=== PATIENT | female | born 1935 | race American Indian/Alaskan Native ===

== ENCOUNTER 2017-01-31 09:08 | Outpatient (CLI) | payer MEDICARE ==
[2017-01-31] MEDS ORDERED: LEXISCAN IV ONE (10:25)
[2017-01-31 12:15] VITALS: BP 140/60
--- NOTE | 2017-02-01 03:58 | Treadmill Report ---
THALLIUM STRESS TEST REPORT LEFT VENTRICLE: Left ventricular chamber size is within normal spread. Perfusion study demonstrates a small fixed apical defect with no reversibility in the resting study. Gated analysis suggests [id number] left ventricular systolic dysfunction, ejection fraction 34%. CONCLUSION: Small fixed apical defect consistent with normal apical thinning. There is no reversible ischemia demonstrated on this study. Recommend clinical correlation and echocardiographic reassessment of left ventricular size and systolic function. [facility]# [id number] [place]/NTS
== END 2017-01-31 09:09 | disposition home or self-care (01) ==
LOC: CARD 09:08
PROVIDERS: ATTEND Internal Medicine Cardiovascular Disease
DX: I11.0 Hypertensive heart disease with heart failure (principal); I50.33 Acute on chronic diastolic (congestive) heart failure; E11.65 Type 2 diabetes mellitus with hyperglycemia; E78.5 Hyperlipidemia, unspecified; Z87.891 Personal history of nicotine dependence
CPT/HCPCS: 78452; 93017; A9502; J2785

== ENCOUNTER 2018-01-03 13:12 | Emergency (ER) | payer MEDICARE ==
[2018-01-03 13:58] LABS: Basophils # (Auto) 0.1 K/mm3 (0.0-0.1); Basophils % (Auto) 1.2 % (0.0-1.8); Eosinophils # (Auto) 0.2 K/mm3 (0.0-0.4); Eosinophils % (Auto) 3.5 % (0.0-4.3); Hematocrit 33.3 % (30.3-42.9); Hemoglobin 11.1 gm/dl (10.1-14.3); Lymphocytes # (Auto) 1.2 K/mm3 (1.2-5.4); Lymphocytes % (Auto) 26.8 % (13.4-35.0); Mean Corpuscular HGB Conc 33 % (30-34); Mean Corpuscular Hemoglobin 32 pg (28-32); Mean Corpuscular Volume 97 fl (79-97); Monocytes # (Auto) 0.4 K/mm3 (0.0-0.8); Monocytes % (Auto) 8.1 % (0.0-7.3); Platelet Count 206 K/mm3 (140-440); Red Blood Count 3.44 M/mm3 (3.65-5.03); Red Cell Distribution Width 15.4 % (13.2-15.2)
--- NOTE | 2018-01-03 14:08 | Emergency Department Report ---
HPI - General Chief Complaint: Hyperglycemia Time Seen by Provider: 01/03/18 13:51 - HPI HPI: The patient is a 82-year-old female with a history of diabetes and congestive heart failure, who presents for evaluation of dyspnea. The patient and her daughter reported that this morning the patient developed constant mild dyspnea and decrease in oxygen saturation on home pulse oximetry. Her dyspnea was exacerbated with physical activity. The patient states that her dyspnea resolved prior to my evaluation. She states that she has no dyspnea whatsoever now feels at her normal baseline, completely asymptomatic. The patient also denies fever, trauma to the head, headache, neck pain or stiffness, chest pain, back pain, abdominal pain, paresthesia or lateralizing motor deficit, or other focal neurological deficit. ED Past Medical Hx - Past Medical History Hx Hypertension: Yes Hx Congestive Heart Failure: Yes Hx Diabetes: Yes Hx Deep Vein Thrombosis: Yes Hx Renal Disease: (acute renal failure) Hx Arthritis: Yes Hx Asthma: No Hx COPD: No Hx Dementia: Yes (1 stage, undiagnosed per daughter) Hx HIV: No Additional medical history: high cholestoral - Surgical History Hx Pacemaker: No Hx Internal Defibrillator: No Hx Cholecystectomy: Yes (2009) Additional Surgical History: brain surg.; hernia; gallbladder. left AKA - Social History Smoking Status: Never Smoker Substance Use Type: None - Medications Home Medications: Home Medications Medication Instructions Recorded Confirmed Last Taken Type Aspirin [Aspirin BABY CHEW TAB] 81 mg PO QDAY 05/27/14 01/03/18 01/03/18 History Levemir VIAL 18 units SQ QHS 10/31/16 01/03/18 01/03/18 History hydrALAZINE [Apresoline TAB] 100 mg PO TID #90 tab 11/03/16 01/03/18 01/03/18 Rx Carvedilol [Coreg] 12.5 mg PO BID 01/03/18 01/03/18 01/03/18 History Docusate Sodium [Colace CAP] 100 mg PO DAILY 01/03/18 01/03/18 01/03/18 History Fenofibrate [Tricor] 48 mg PO DAILY 01/03/18 01/03/18 01/03/18 History Simvastatin [Zocor] 40 mg PO DAILY 01/03/18 01/03/18 01/03/18 History Timolol 0.5% [Timoptic] 1 drop OU BID 01/03/18 01/03/18 01/03/18 History amLODIPine [Norvasc] 10 mg PO DAILY 01/03/18 01/03/18 01/03/18 History ED Review of Systems ROS: Stated complaint: LOW HEART RATE Other details as noted in HPI Constitutional: denies: fever ENT: denies: throat or neck pain Respiratory: denies: cough reports shortness of breath Cardiovascular: denies: chest pain Endocrine: denies unexplained weight loss or gain Gastrointestinal: denies: abdominal pain, nausea Genitourinary: denies: dysuria Musculoskeletal: denies: leg swelling Skin: denies: rash Neurological: denies: headache Hematological/Lymphatic: denies: easy bleeding or easy bruising Psych: denies sadness or hopelessness Physical Exam - Physical Exam Vital Signs: Vital Signs 01/03/18 13:26 Temperature 97.8 F Pulse Rate 59 L Respiratory 16 Rate Blood Pressure 179/64 O2 Sat by Pulse 97 Oximetry Physical Exam: General: well-nourished, well-developed, no acute distress Head: Normocephalic, atraumatic Eyes: normal sclera ENT: Mucous membranes are pale and dry Neck: No neck stiffness, no cervical adenopathy Respiratory: Breath sounds equal bilaterally, no wheezing, rales, or rhonchi Cardio: S1 and S2 present, no murmurs, rubs, gallops, capillary refill is delayed Abdomen: Normoactive bowel sounds, soft abdomen, no rigidity, no guarding or rebound tenderness Chest WALL/Back: No tenderness to palpation of the chest wall, no CVA tenderness with percussion Musc: No pitting edema Skin: No rash Neuro: no facial drooping, normal speech Psych: Normal affect ED Course Vital Signs 01/03/18 13:26 Temperature 97.8 F Pulse Rate 59 L Respiratory 16 Rate Blood Pressure 179/64 O2 Sat by Pulse 97 Oximetry ED Medical Decision Making - Lab Data Result diagrams: 01/03/18 13:44 01/03/18 13:44 - Medical Decision Making The patient was seen and examined by myself. The patient is placed on a cardiac catheterization technician and continuous pulse ox. On initial evaluation, the patient was found to be in no distress. Evaluation orders were placed. The patient was given hydralazine for elevated blood pressure. On reexamination the patient's blood pressure was found to decrease outside of range concerning for hypertensive emergency. The patient is stable for discharge with outpatient follow-up. The patient is given follow-up and return instructions. The patient expressed understanding and agreed with the plan. The patient is discharged in stable condition. Critical care attestation.: If time is entered above; I have spent that time in minutes in the direct care of this critically ill patient, excluding procedure time. ED Disposition Clinical Impression: Hypertensive urgency Dyspnea Qualifiers: Dyspnea type: dyspnea on exertion Qualified Code(s): R06.09 - Other forms of dyspnea Disposition: DC-01 TO HOME OR SELFCARE Is pt being admited?: No Does the pt Need Aspirin: No Condition: Stable Instructions: Heart Failure (ED), Hypertension (ED) Referrals: [facility] [Outside] - 3-5 Days PRIMARY CARE, [Primary Care Provider] - 3-5 Days Time of Disposition: 17:39
[2018-01-03 14:15] LABS: Calcium 9.9 mg/dL (8.4-10.2)
--- NOTE | 2018-01-03 14:40 | XRay Report ---
AP CHEST: HISTORY: chest pain AP view of the chest demonstrates a normal mediastinal and cardiac contour with clear lungs and normal bony and soft tissue structures. IMPRESSION: No acute cardiopulmonary process. CHF has resolved since 10/31/16.
[2018-01-03] MEDS ORDERED: APRESOLINE IV ONE (14:55)
[2018-01-03] MEDS ORDERED: NACL 0.9% 500 ML 500 ML IV ONE (14:56)
[2018-01-03 15:00] LABS: Bacteria,Urine 1+ /HPF (Negative); Bilirubin,Urine NEG (Negative); Blood,Urine NEG (Negative); Color,Urine Straw (Yellow); RBC,Urine < 1.0 /HPF (0.0-6.0); Urobilinogen,Urine < 2.0 mg/dL (<2.0); WBC,Urine < 1.0 /HPF (0.0-6.0)
[2018-01-03 15:13] VITALS: BP 177/71
== END 2018-01-03 18:30 | disposition home or self-care (01) ==
LOC: ED 13:12
DX: I16.0 Hypertensive urgency (principal); R06.09 Other forms of dyspnea; I11.0 Hypertensive heart disease with heart failure; I50.9 Heart failure, unspecified; E11.9 Type 2 diabetes mellitus without complications; M19.90 Unspecified osteoarthritis, unspecified site; E78.00 Pure hypercholesterolemia, unspecified; Z90.49 Acquired absence of other specified parts of digestive tract; Z79.82 Long term (current) use of aspirin
CPT/HCPCS: 36415; 71045; 80048; 81001; 82805; 82962; 83690; 83880; 84484; 85025; 93005; 93010; 96374; 99285; J0360; J7040

== ENCOUNTER 2019-04-22 22:06 | Emergency (ER) | payer MEDICARE ==
--- NOTE | 2019-04-22 22:42 | Emergency Department Report ---
HPI - General Time Seen by Provider: 04/22/19 22:29 - HPI HPI: 83-year-old [place] female presents to the emergency department from home via EMS with complaint of muscle cramps. She complains of To the right leg, the upper back around the shoulder blades and in the bilateral hands. Patient says that she gets cramps often but usually they go away on their own and today it has been there almost the entire day. She also complains of some mild epigastric pain that she feels is coming from her back as well. She denies any fever, chest pain, shortness of breath, vomiting, dysuria. She has a past medical history of diabetes, CHF, hypertension, hyperlipidemia. She has an left above-knee limitation. Her primary care physician is Dr. Dai Rothman. She does not take anything for her symptoms. ED Past Medical Hx - Past Medical History Hx Hypertension: Yes Hx Congestive Heart Failure: Yes Hx Diabetes: Yes Hx Deep Vein Thrombosis: Yes Hx Renal Disease: (acute renal failure) Hx Arthritis: Yes Hx Asthma: No Hx COPD: No Hx Dementia: Yes (1 stage, undiagnosed per daughter) Hx HIV: No Additional medical history: high cholestoral - Surgical History Hx Pacemaker: No Hx Internal Defibrillator: No Hx Cholecystectomy: Yes (2009) Additional Surgical History: brain surg.; hernia; gallbladder. left AKA - Social History Smoking Status: Never Smoker Substance Use Type: None - Medications Home Medications: Home Medications Medication Instructions Recorded Confirmed Last Taken Type Aspirin [Aspirin BABY CHEW TAB] 81 mg PO QDAY 05/27/14 01/03/18 01/03/18 History Levemir VIAL 18 units SQ QHS 10/31/16 01/03/18 01/03/18 History hydrALAZINE [Apresoline TAB] 100 mg PO TID #90 tab 11/03/16 01/03/18 01/03/18 Rx Carvedilol [Coreg] 12.5 mg PO BID 01/03/18 01/03/18 01/03/18 History Docusate Sodium [Colace CAP] 100 mg PO DAILY 01/03/18 01/03/18 01/03/18 History Fenofibrate [Tricor] 48 mg PO DAILY 01/03/18 01/03/18 01/03/18 History Simvastatin [Zocor] 40 mg PO DAILY 01/03/18 01/03/18 01/03/18 History Timolol 0.5% [Timoptic] 1 drop OU BID 01/03/18 01/03/18 01/03/18 History amLODIPine [Norvasc] 10 mg PO DAILY 01/03/18 01/03/18 01/03/18 History ED Review of Systems ROS: Stated complaint: WEAKNESS/CRAMPING/ABD PAIN Other details as noted in HPI Comment: All other systems reviewed and negative Constitutional: denies: chills, fever Respiratory: denies: shortness of breath Cardiovascular: denies: chest pain, palpitations Gastrointestinal: abdominal pain. denies: vomiting Genitourinary: denies: dysuria, discharge Musculoskeletal: back pain, myalgia Neurological: denies: headache, weakness, numbness, paresthesias Physical Exam - Physical Exam Physical Exam: GENERAL: The patient is well-developed well-nourished. HENT: Normocephalic. Atraumatic. Patient has moist mucous membranes. EYES: Extraocular motions are intact. NECK: Supple. Trachea is midline. CHEST/LUNGS: Clear to auscultation. There is no respiratory distress noted. HEART/CARDIOVASCULAR: Regular. There is no tachycardia. There is no murmur. ABDOMEN: Abdomen is soft, nontender. Patient has normal bowel sounds. There is no abdominal distention. SKIN: Skin is warm and dry. NEURO: The patient is awake, alert, and oriented. The patient is cooperative. The patient has no focal neurologic deficits. Normal speech. MUSCULOSKELETAL: Unable to reproduce right leg pain to palpation. There is a left above-knee amputation almost at the pelvis. There is no evidence of acute injury. ED Medical Decision Making - Lab Data Result diagrams: 04/22/19 22:49 04/22/19 22:49 - Radiology Data Radiology results: report reviewed, image reviewed interpreted by me: Chest x-ray does not show any acute process. There are no pleural effusions, o bvious pneumonia and there is no pneumothorax. Abdominal x-ray shows nonspecific nonobstructive bowel gas DUPLEX DOPPLER LOWER EXTREMITY VEINS, RIGHT INDICATION / CLINICAL INFORMATION: RLE pain, hx of DVT. TECHNIQUE: Duplex doppler imaging was performed through the veins of the right lower extremity using venous compression and other maneuvers. COMPARISON: None available. FINDINGS: COMMON FEMORAL VEIN: Negative. FEMORAL VEIN: Negative. POPLITEAL VEIN: Negative. CALF VEINS: Negative. ADDITIONAL FINDINGS: None. IMPRESSION: 1. No sonographic evidence for DVT in the right lower extremity. - Medical Decision Making This patient's main complaint was a cramping or spasmodic pain in the right leg that also sometimes goes in the hands. The patient's labs showed some renal insufficiency. She does have a history of some chronic kidney disease but it is worse than her last visit over one year ago. She does follow with Dr. Canas for nephrology. She was treated with a dose of Flexeril without much relief. She was then given a very small amount of IV fluid and a small dose of Ativan. Initially she says that it does not help with the cramping pain but the patient is seen resting comfortably during multiple re-evaluations. She had complained of some lower abdominal discomfort. Abdominal x-ray shows nonspecific nonobstructive bowel gas. No urinary tract infection seen on urinalysis. Her vital signs stable throughout her ED course. The patient appears safe for discharge home at this time. She's been instructed to follow- up with her primary care physician. Critical Care Time: No Critical care attestation.: If time is entered above; I have spent that time in minutes in the direct care of this critically ill patient, excluding procedure time. ED Disposition Clinical Impression: Leg cramping, Acute on chronic renal insufficiency, Hyperglycemia Leg pain Qualifiers: Laterality: right Qualified Code(s): M79.604 - Pain in right leg Disposition: DC-01 TO HOME OR SELFCARE Is pt being admited?: No Condition: Stable Instructions: Muscle Spasm (ED), Diabetic Hyperglycemia (ED), Impaired Kidney Function (ED) Additional Instructions: Please follow-up with your primary care physician in the next few days. 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 Continue with your normal blood pressure and diabetes medications. Return to the emergency Department with any worsening of your symptoms or any acute distress. Referrals: DAI ROTHMAN MD [Primary Care Provider] - 2-3 Days ASIF CANAS MD [Staff Physician] - 2-3 Days Time of Disposition: 02:40
[2019-04-22 23:08] LABS: Basophils # (Auto) 0.1 K/mm3 (0.0-0.1); Basophils % (Auto) 1.4 % (0.0-1.8); Eosinophils # (Auto) 0.1 K/mm3 (0.0-0.4); Eosinophils % (Auto) 1.4 % (0.0-4.3); Hematocrit 33.6 % (30.3-42.9); Hemoglobin 11.4 gm/dl (10.1-14.3); Lymphocytes % (Auto) 16.7 % (13.4-35.0); Mean Corpuscular HGB Conc 34 % (30-34); Mean Corpuscular Volume 95 fl (79-97); Monocytes # (Auto) 0.5 K/mm3 (0.0-0.8); Monocytes % (Auto) 7.9 % (0.0-7.3); Platelet Count 215 K/mm3 (140-440); Red Blood Count 3.53 M/mm3 (3.65-5.03)
--- NOTE | 2019-04-22 23:29 | XRay Report ---
Abdomen 3 views INDICATION / CLINICAL INFORMATION: abd pain. COMPARISON: None available. FINDINGS: TUBES / LINES: None. BOWEL GAS PATTERN: No significant abnormality. FREE AIR / EXTRALUMINAL GAS: None seen. ADDITIONAL FINDINGS: Previous abdominal wall hernia repair. Cholecystectomy clips in the right upper quadrant. LUNGS: Mild bibasilar atelectasis. IMPRESSION: 1. No bowel obstruction or free air. Signer Name: Juliana Michel MD Signed: 04/22/2019 11:25 PM Workstation Name: [id number]
[2019-04-22 23:31] LABS: Calcium 9.6 mg/dL (8.4-10.2)
[2019-04-22] MEDS ORDERED: CYCLOBENZAPRINE 10 MG TAB PO ONE (23:37)
[2019-04-23 00:24] LABS: Bilirubin,Urine NEG (Negative); Blood,Urine NEG (Negative); Color,Urine Straw (Yellow); Urobilinogen,Urine < 2.0 mg/dL (<2.0); WBC,Urine < 1.0 /HPF (0.0-6.0)
[2019-04-23] MEDS ORDERED: SODIUM CHLORIDE 0.9% 250ML 250 ML IV ONE (00:40)
[2019-04-23] MEDS ORDERED: LORazepam 2 MG/ML VIAL IV ONE (00:40)
[2019-04-23 02:25] VITALS: BP 145/50
--- NOTE | 2019-04-23 02:28 | Vascular Lab Report ---
DUPLEX DOPPLER LOWER EXTREMITY VEINS, RIGHT INDICATION / CLINICAL INFORMATION: RLE pain, hx of DVT. TECHNIQUE: Duplex doppler imaging was performed through the veins of the right lower extremity using venous comp ression and other maneuvers. COMPARISON: None available. FINDINGS: COMMON FEMORAL VEIN: Negative. FEMORAL VEIN: Negative. POPLITEAL VEIN: Negative. CALF VEINS: Negative. ADDITIONAL FINDINGS: None. IMPRESSION: 1. No sonographic evidence for DVT in the right lower extremity. Signer Name: Juliana Michel MD Signed: 04/23/2019 2:24 AM Workstation Name: [id number]
== END 2019-04-23 04:35 | disposition home or self-care (01) ==
LOC: ED 22:06
DX: M79.604 Pain in right leg (principal); R25.2 Cramp and spasm; R10.13 Epigastric pain; M54.9 Dorsalgia, unspecified; N28.9 Disorder of kidney and ureter, unspecified; E11.65 Type 2 diabetes mellitus with hyperglycemia; I11.0 Hypertensive heart disease with heart failure; I50.9 Heart failure, unspecified; M79.642 Pain in left hand; M79.641 Pain in right hand; M19.90 Unspecified osteoarthritis, unspecified site; F03.90 Unspecified dementia, unspecified severity, without behavioral disturbance, psychotic disturbance, mood disturbance, and anxiety; E78.00 Pure hypercholesterolemia, unspecified; Z86.718 Personal history of other venous thrombosis and embolism; Z90.49 Acquired absence of other specified parts of digestive tract; Z79.899 Other long term (current) drug therapy
CPT/HCPCS: 36415; 74022; 80053; 81001; 83690; 83735; 84443; 85025; 93971; 96361; 96374; 99285; J2060; J7050; 96365; 96375

== ENCOUNTER 2019-05-20 09:49 | Outpatient (CLI) | payer MEDICARE | END 2019-05-20 09:50 | disposition home or self-care (01) | LOC: ECHO 09:49 | PROVIDERS: ATTEND Internal Medicine Cardiovascular Disease | DX: I42.9 Cardiomyopathy, unspecified (principal); I11.0 Hypertensive heart disease with heart failure; I50.33 Acute on chronic diastolic (congestive) heart failure; E11.9 Type 2 diabetes mellitus without complications; E78.5 Hyperlipidemia, unspecified | CPT/HCPCS: 93306 ==

== ENCOUNTER 2021-01-12 18:20 | Inpatient (IN) | payer MEDICARE, MEDICAID ==
--- NOTE | 2021-01-12 21:03 | Emergency Department Report ---
ED Altered Mental Status HPI - General Chief Complaint: Altered Mental Status Stated Complaint: ALTERED MENTAL STATUS Time Seen by Provider: 01/12/21 20:28 Source: patient Mode of arrival: Ambulatory Limitations: No Limitations - History of Present Illness Initial Comments: 85-year-old female, history of diabetes, CHF, hypertension, dementia, presents t o ED with altered mental status. I spoke with patient's son over the phone, Benjamin Cowan ([phone]). He states that his sister who lives with the patient. She reports that she was her normal self yesterday, aside from going to bed earlier than usual last night at 10 PM. Sister went to work this morning. When she came home from work this afternoon she noticed that patient was somewhat confused, less talkative, and blood pressure was elevated. Son states patient's dementia has been worsening and he does not feel that she should be living in this apartment without anyone there to watch her closely. He states that patient does have a sitter that comes at 6 in the morning and sits with her and makes sure that she takes her medications. Patient is alert and oriented x3. She is slow to respond. She has no complaints. She denies headache, chest pain, fever, shortness of breath, abdominal pain, vomiting, diarrhea. Patient reports she did receive her COVID-19 vaccine. MD Complaint: altered mental status -: days(s) (1) Severity: moderate Context: unknown Associated Symptoms: denies other symptoms. denies: chest pain, fever/chills, headaches, nausea/vomiting, shortness of breath, diarrhea - Related Data Home Medications Medication Instructions Recorded Confirmed Last Taken Aspirin [Aspirin BABY CHEW TAB] 81 mg PO QDAY 05/27/14 01/13/21 2 Days Ago ~01/11/21 Levemir VIAL 18 units SQ QHS 10/31/16 01/13/21 2 Days Ago ~01/11/21 Carvedilol [Coreg] 12.5 mg PO BID 01/03/18 01/13/21 2 Days Ago ~01/11/21 Docusate Sodium [Colace CAP] 100 mg PO DAILY 01/03/18 01/13/21 2 Days Ago ~01/11/21 Fenofibrate [Tricor] 48 mg PO DAILY 01/03/18 01/13/21 2 Days Ago ~01/11/21 Simvastatin [Zocor] 40 mg PO DAILY 01/03/18 01/13/21 2 Days Ago ~01/11/21 Timolol 0.5% [Timoptic] 1 drop OU BID 01/03/18 01/13/21 2 Days Ago ~01/11/21 amLODIPine [Norvasc] 10 mg PO DAILY 01/03/18 01/13/21 2 Days Ago ~01/11/21 Previous Rx's Medication Instructions Recorded Last Taken Type hydrALAZINE [Apresoline TAB] 100 mg PO TID #90 tab 11/03/16 2 Days Ago Rx ~01/11/21 Allergies Allergy/AdvReac Type Severity Reaction Status Date / Time No Known Allergies Allergy Verified 02/23/15 08:27 ED Review of Systems ROS: Stated complaint: ALTERED MENTAL STATUS Other details as noted in HPI Comment: All other systems reviewed and negative Constitutional: denies: fever Respiratory: denies: cough, shortness of breath Cardiovascular: denies: chest pain Gastrointestinal: denies: abdominal pain, vomiting, diarrhea Neurological: denies: headache ED Past Medical Hx - Past Medical History Previous Medical History?: Yes Hx Hypertension: Yes Hx Congestive Heart Failure: Yes Hx Diabetes: Yes Hx Deep Vein Thrombosis: Yes Hx Renal Disease: (acute renal failure) Hx Arthritis: Yes Hx Asthma: No Hx COPD: No Hx Dementia: Yes (1 stage, undiagnosed per daughter) Hx HIV: No Additional medical history: high cholestoral - Surgical History Past Surgical History?: Yes Hx Pacemaker: No Hx Internal Defibrillator: No Hx Cholecystectomy: Yes (2009) Additional Surgical History: brain surg.; hernia; gallbladder. left AKA - Social History Smoking Status: Never Smoker Substance Use Type: None - Medications Home Medications: Home Medications Medication Instructions Recorded Confirmed Last Taken Type Aspirin [Aspirin BABY CHEW TAB] 81 mg PO QDAY 05/27/14 01/13/21 2 Days Ago History ~01/11/21 Levemir VIAL 18 units SQ QHS 10/31/16 01/13/21 2 Days Ago History ~01/11/21 hydrALAZINE [Apresoline TAB] 100 mg PO TID #90 tab 11/03/16 01/13/21 2 Days Ago Rx ~01/11/21 Carvedilol [Coreg] 12.5 mg PO BID 01/03/18 01/13/21 2 Days Ago History ~01/11/21 Docusate Sodium [Colace CAP] 100 mg PO DAILY 01/03/18 01/13/21 2 Days Ago History ~01/11/21 Fenofibrate [Tricor] 48 mg PO DAILY 01/03/18 01/13/21 2 Days Ago History ~01/11/21 Simvastatin [Zocor] 40 mg PO DAILY 01/03/18 01/13/21 2 Days Ago History ~01/11/21 Timolol 0.5% [Timoptic] 1 drop OU BID 01/03/18 01/13/21 2 Days Ago History ~01/11/21 amLODIPine [Norvasc] 10 mg PO DAILY 01/03/18 01/13/21 2 Days Ago History ~01/11/21 ED Physical Exam - General Limitations: No Limitations General appearance: alert, in no apparent distress - Head Head exam: Present: atraumatic, normocephalic - Eye Eye exam: Present: normal appearance, EOMI - ENT ENT exam: Present: mucous membranes moist - Neck Neck exam: Present: normal inspection - Respiratory Respiratory exam: Present: normal lung sounds bilaterally. Absent: respiratory distress - Cardiovascular Cardiovascular Exam: Present: normal rhythm, bradycardia - GI/Abdominal GI/Abdominal exam: Present: soft. Absent: distended, tenderness - Extremities Exam Extremities exam: Present: other (Left AKA present) - Neurological Exam Neurological exam: Present: alert, oriented X3 (Responses are slow), CN II-XII intact. Absent: motor sensory deficit - Psychiatric Psychiatric exam: Present: normal affect, normal mood - Skin Skin exam: Present: warm, dry, intact, normal color ED Course Vital Signs 01/12/21 01/12/21 01/12/21 22:00 22:35 22:38 Temperature 98.5 F Pulse Rate 52 L 48 L Respiratory 12 14 Rate Blood Pressure 207/77 Blood Pressure 194/68 [Left] O2 Sat by Pulse 99 100 100 Oximetry 01/12/21 01/12/21 01/13/21 22:57 23:57 00:00 Temperature Pulse Rate 57 L 55 L 59 L Respiratory 11 L Rate Blood Pressure 213/73 218/84 213/87 Blood Pressure [Left] O2 Sat by Pulse 96 Oximetry 01/13/21 01/13/21 01/13/21 01:00 02:00 03:00 Temperature Pulse Rate 52 L 46 L Respiratory 9 L 11 L 9 L Rate Blood Pressure 208/66 184/78 188/64 Blood Pressure [Left] O2 Sat by Pulse 97 99 99 Oximetry 01/13/21 01/13/21 01/13/21 04:00 06:00 06:18 Temperature Pulse Rate 47 L 46 L 56 L Respiratory 10 L 9 L 15 Rate Blood Pressure 183/58 184/63 Blood Pressure 184/63 [Left] O2 Sat by Pulse 99 98 100 Oximetry 01/13/21 01/13/21 01/13/21 06:20 10:00 11:00 Temperature Pulse Rate 60 56 L 54 L Respiratory 12 11 L Rate Blood Pressure 199/73 158/67 168/73 Blood Pressure [Left] O2 Sat by Pulse 95 97 Oximetry 01/13/21 01/13/21 01/13/21 11:53 12:00 13:00 Temperature Pulse Rate 57 L 64 54 L Respiratory 14 12 Rate Blood Pressure 168/73 183/80 167/67 Blood Pressure [Left] O2 Sat by Pulse 94 95 Oximetry 01/13/21 01/13/21 01/13/21 14:00 14:33 14:40 Temperature Pulse Rate 63 55 L 62 Respiratory 14 9 L Rate Blood Pressure 149/64 149/64 149/64 Blood Pressure [Left] O2 Sat by Pulse 98 97 Oximetry 01/13/21 01/13/21 01/13/21 14:50 15:00 15:10 Temperature Pulse Rate 58 L 55 L 52 L Respiratory 12 11 L 10 L Rate Blood Pressure 149/64 153/68 153/68 Blood Pressure [Left] O2 Sat by Pulse 97 98 96 Oximetry 01/13/21 01/13/21 01/13/21 15:20 15:30 15:40 Temperature Pulse Rate 54 L 55 L 53 L Respiratory 13 12 15 Rate Blood Pressure 153/68 153/68 153/68 Blood Pressure [Left] O2 Sat by Pulse 97 99 98 Oximetry 01/13/21 01/13/21 01/13/21 15:50 15:54 16:00 Temperature Pulse Rate 54 L 54 L 54 L Respiratory 14 16 13 Rate Blood Pressure 153/68 148/66 Blood Pressure 153/68 [Left] O2 Sat by Pulse 98 97 98 Oximetry 01/13/21 01/13/21 16:10 16:20 Temperature Pulse Rate 54 L 53 L Respiratory 13 16 Rate Blood Pressure 148/66 148/66 Blood Pressure [Left] O2 Sat by Pulse 98 97 Oximetry - Lab Data Result diagrams: 01/12/21 21:02 01/12/21 21:02 Lab Results 01/12/21 01/12/21 01/12/21 Range/Units 21:02 21:02 21:02 WBC 4.8 (4.5-11.0) K/mm3 RBC 3.66 (3.65-5.03) M/mm3 Hgb 11.9 (10.1-14.3) gm/dl Hct 36.6 (30.3-42.9) % MCV 100 H (79-97) fl MCH 33 H (28-32) pg MCHC 33 (30-34) % RDW 15.7 H (13.2-15.2) % Plt Count 219 (140-440) K/mm3 Lymph % (Auto) 21.1 (13.4-35.0) % Emanuel % (Auto) 7.1 (0.0-7.3) % Eos % (Auto) 0.7 (0.0-4.3) % Baso % (Auto) 1.1 (0.0-1.8) % Lymph # (Auto) 1.0 L (1.2-5.4) K/mm3 Emanuel # (Auto) 0.3 (0.0-0.8) K/mm3 Eos # (Auto) 0.0 (0.0-0.4) K/mm3 Baso # (Auto) 0.1 (0.0-0.1) K/mm3 Seg Neutrophils % 70.0 (40.0-70.0) % Seg Neutrophils # 3.3 (1.8-7.7) K/mm3 PT 13.9 (12.2-14.9) Sec. INR 1.02 (0.87-1.13) APTT 28.3 (24.2-36.6) Sec. Sodium 141 (137-145) mmol/L Potassium 4.7 (3.6-5.0) mmol/L Chloride 105.1 (98-107) mmol/L Carbon Dioxide 23 (22-30) mmol/L Anion Gap 18 mmol/L BUN 31 H (7-17) mg/dL Creatinine 2.2 H (0.6-1.2) mg/dL Estimated GFR 26 ml/min BUN/Creatinine Ratio 14 % Glucose 69 (65-100) mg/dL POC Glucose (70-105) mg/dL Calcium 10.3 H (8.4-10.2) mg/dL Total Bilirubin 0.30 (0.1-1.2) mg/dL Direct Bilirubin < 0.2 (0-0.2) mg/dL Indirect Bilirubin 0.1 mg/dL AST 18 (5-40) units/L ALT 6 L (7-56) units/L Alkaline Phosphatase 46 (35-129) units/L Troponin T 0.033 H (0.00-0.029) ng/mL Total Protein 7.1 (6.3-8.2) g/dL Albumin 4.1 (3.9-5) g/dL Albumin/Globulin Ratio 1.4 % Triglycerides 131 (2-149) mg/dL Cholesterol 136 (50-199) mg/dL LDL Cholesterol Direct 71 (50-130) mg/dL HDL Cholesterol 46 (40-59) mg/dL Cholesterol/HDL Ratio 2.95 % Urine Color (Yellow) Urine Turbidity (Clear) Urine pH (5.0-7.0) Ur Specific [place] (1.003-1.030) Urine Protein (Negative) mg/dL Urine Glucose (UA) (Negative) mg/dL Urine Ketones (Negative) mg/dL Urine Blood (Negative) Urine Nitrite (Negative) Urine Bilirubin (Negative) Urine Urobilinogen (<2.0) mg/dL Ur Leukocyte Esterase (Negative) Urine WBC (Auto) (0.0-6.0) /HPF Urine RBC (Auto) (0.0-6.0) /HPF U Epithel Cells (Auto) (0-13.0) /HPF Urine Bacteria (Auto) (Negative) /HPF Urine Mucus /HPF 01/12/21 01/13/21 01/13/21 Range/Units 21:05 00:27 09:28 WBC (4.5-11.0) K/mm3 RBC (3.65-5.03) M/mm3 Hgb (10.1-14.3) gm/dl Hct (30.3-42.9) % MCV (79-97) fl MCH (28-32) pg MCHC (30-34) % RDW (13.2-15.2) % Plt Count (140-440) K/mm3 Lymph % (Auto) (13.4-35.0) % Emanuel % (Auto) (0.0-7.3) % Eos % (Auto) (0.0-4.3) % Baso % (Auto) (0.0-1.8) % Lymph # (Auto) (1.2-5.4) K/mm3 Emanuel # (Auto) (0.0-0.8) K/mm3 Eos # (Auto) (0.0-0.4) K/mm3 Baso # (Auto) (0.0-0.1) K/mm3 Seg Neutrophils % (40.0-70.0) % Seg Neutrophils # (1.8-7.7) K/mm3 PT (12.2-14.9) Sec. INR (0.87-1.13) APTT (24.2-36.6) Sec. Sodium (137-145) mmol/L Potassium (3.6-5.0) mmol/L Chloride (98-107) mmol/L Carbon Dioxide (22-30) mmol/L Anion Gap mmol/L BUN (7-17) mg/dL Creatinine (0.6-1.2) mg/dL Estimated GFR ml/min BUN/Creatinine Ratio % Glucose (65-100) mg/dL POC Glucose 89 154 H (70-105) mg/dL Calcium (8.4-10.2) mg/dL Total Bilirubin (0.1-1.2) mg/dL Direct Bilirubin (0-0.2) mg/dL Indirect Bilirubin mg/dL AST (5-40) units/L ALT (7-56) units/L Alkaline Phosphatase (35-129) units/L Troponin T (0.00-0.029) ng/mL Total Protein (6.3-8.2) g/dL Albumin (3.9-5) g/dL Albumin/Globulin Ratio % Triglycerides (2-149) mg/dL Cholesterol (50-199) mg/dL LDL Cholesterol Direct (50-130) mg/dL HDL Cholesterol (40-59) mg/dL Cholesterol/HDL Ratio % Urine Color Yellow (Yellow) Urine Turbidity Cloudy (Clear) Urine pH 7.0 (5.0-7.0) Ur Specific [place] 1.008 (1.003-1.030) Urine Protein >500 (Negative) mg/dL Urine Glucose (UA) Neg (Negative) mg/dL Urine Ketones Neg (Negative) mg/dL Urine Blood Sm (Negative) Urine Nitrite Neg (Negative) Urine Bilirubin Neg (Negative) Urine Urobilinogen < 2.0 (<2.0) mg/dL Ur Leukocyte Esterase Neg (Negative) Urine WBC (Auto) 3.0 (0.0-6.0) /HPF Urine RBC (Auto) 3.0 (0.0-6.0) /HPF U Epithel Cells (Auto) 19.0 H (0-13.0) /HPF Urine Bacteria (Auto) 1+ (Negative) /HPF Urine Mucus Few /HPF 01/13/21 Range/Units 11:48 WBC (4.5-11.0) K/mm3 RBC (3.65-5.03) M/mm3 Hgb (10.1-14.3) gm/dl Hct (30.3-42.9) % MCV (79-97) fl MCH (28-32) pg MCHC (30-34) % RDW (13.2-15.2) % Plt Count (140-440) K/mm3 Lymph % (Auto) (13.4-35.0) % Emanuel % (Auto) (0.0-7.3) % Eos % (Auto) (0.0-4.3) % Baso % (Auto) (0.0-1.8) % Lymph # (Auto) (1.2-5.4) K/mm3 Emanuel # (Auto) (0.0-0.8) K/mm3 Eos # (Auto) (0.0-0.4) K/mm3 Baso # (Auto) (0.0-0.1) K/mm3 Seg Neutrophils % (40.0-70.0) % Seg Neutrophils # (1.8-7.7) K/mm3 PT (12.2-14.9) Sec. INR (0.87-1.13) APTT (24.2-36.6) Sec. Sodium (137-145) mmol/L Potassium (3.6-5.0) mmol/L Chloride (98-107) mmol/L Carbon Dioxide (22-30) mmol/L Anion Gap mmol/L BUN (7-17) mg/dL Creatinine (0.6-1.2) mg/dL Estimated GFR ml/min BUN/Creatinine Ratio % Glucose (65-100) mg/dL POC Glucose 171 H (70-105) mg/dL Calcium (8.4-10.2) mg/dL Total Bilirubin (0.1-1.2) mg/dL Direct Bilirubin (0-0.2) mg/dL Indirect Bilirubin mg/dL AST (5-40) units/L ALT (7-56) units/L Alkaline Phosphatase (35-129) units/L Troponin T (0.00-0.029) ng/mL Total Protein (6.3-8.2) g/dL Albumin (3.9-5) g/dL Albumin/Globulin Ratio % Triglycerides (2-149) mg/dL Cholesterol (50-199) mg/dL LDL Cholesterol Direct (50-130) mg/dL HDL Cholesterol (40-59) mg/dL Cholesterol/HDL Ratio % Urine Color (Yellow) Urine Turbidity (Clear) Urine pH (5.0-7.0) Ur Specific [place] (1.003-1.030) Urine Protein (Negative) mg/dL Urine Glucose (UA) (Negative) mg/dL Urine Ketones (Negative) mg/dL Urine Blood (Negative) Urine Nitrite (Negative) Urine Bilirubin (Negative) Urine Urobilinogen (<2.0) mg/dL Ur Leukocyte Esterase (Negative) Urine WBC (Auto) (0.0-6.0) /HPF Urine RBC (Auto) (0.0-6.0) /HPF U Epithel Cells (Auto) (0-13.0) /HPF Urine Bacteria (Auto) (Negative) /HPF Urine Mucus /HPF - EKG Data -: EKG Interpreted by [facility] EKG shows normal: sinus rhythm, ST-T waves Rate: bradycardia (RATE 44) Interpretation: other (LBBB) - Radiology Data Radiology results: report reviewed, image reviewed - Medical Decision Making 85-year-old female presents to ED for altered mental status. Per family, patient had some confusion and is less talkative. Here in the ED, patient is slow to respond, however she is alert and oriented x3, with no focal neuro deficits. Work-up is unremarkable except for some chronic renal insufficiency and hypertensive urgency. Patient given hydralazine here in the ED. She will be admitted to hospitalist, for further management. - Differential Diagnosis CVA, UTI, pneumonia, dementia Critical care attestation.: If time is entered above; I have spent that time in minutes in the direct care of this critically ill patient, excluding procedure time. ED Disposition Clinical Impression: Hypertensive urgency, Chronic kidney disease, Altered mental status Disposition: [id number] OP ADMIT IP TO THIS HOSP Is pt being admited?: Yes Condition: Stable Time of Disposition: 23:56
[2021-01-12 22:02] LABS: Basophils # (Auto) 0.1 K/mm3 (0.0-0.1); Basophils % (Auto) 1.1 % (0.0-1.8); Eosinophils % (Auto) 0.7 % (0.0-4.3); Hematocrit 36.6 % (30.3-42.9); Hemoglobin 11.9 gm/dl (10.1-14.3); Lymphocytes % (Auto) 21.1 % (13.4-35.0); Mean Corpuscular HGB Conc 33 % (30-34); Mean Corpuscular Volume 100 fl (79-97); Monocytes # (Auto) 0.3 K/mm3 (0.0-0.8); Monocytes % (Auto) 7.1 % (0.0-7.3); Platelet Count 219 K/mm3 (140-440); Red Blood Count 3.66 M/mm3 (3.65-5.03); Red Cell Distribution Width 15.7 % (13.2-15.2)
[2021-01-12 22:10] LABS: INR 1.02 (0.87-1.13); Partial Thromboplastin Time 28.3 Sec. (24.2-36.6)
[2021-01-12 22:22] LABS: Alanine Aminotransferase 6 units/L (7-56); Albumin 4.1 g/dL (3.9-5); BUN/Creatinine Ratio 14; Blood Urea Nitrogen 31 mg/dL (7-17); Calcium 10.3 mg/dL (8.4-10.2); Hemolysis Index 5
--- NOTE | 2021-01-12 22:23 | XRay Report ---
CHEST 1 VIEW 01/12/2021 9:03 PM INDICATION / CLINICAL INFORMATION: AMS. COMPARISON: 04/22/2019 FINDINGS: SUPPORT DEVICES: None. HEART / MEDIASTINUM: No significant abnormality. LUNGS / PLEURA: No significant pulmonary or pleural abnormality. No pneumothorax. There is subsegment al atelectasis in the left lung base. ADDITIONAL FINDINGS: No significant additional findings. IMPRESSION: 1. No acute findings. Signer Name: Pee So DO Signed: 01/12/2021 10:18 PM Workstation Name: [id number]
[2021-01-12 22:30] LABS: Bilirubin,Direct < 0.2 mg/dL (0-0.2)
[2021-01-12 22:36] LABS: Chol/HDL Ratio 2.95 %; HDL Cholesterol 46 mg/dL (40-59); LDL Cholesterol,Direct 71 mg/dL (50-130)
[2021-01-12] MEDS ORDERED: hydrALAZINE 20 MG/1 ML INJ IV ONE ×2 (22:37→23:52)
--- NOTE | 2021-01-12 23:08 | Cat Scan Report ---
CT HEAD WITHOUT CONTRAST INDICATION : AMS. TECHNIQUE: Axial, coronal and sagittal CT imaging was performed from the skull apex through the skul l base without contrast. All CT scans at this location are performed using CT dose reduction for ALA RA by means of automated exposure control. COMPARISON: None available. FINDINGS: PARENCHYMA: No mass, midline shift, hemorrhage, extraaxial collection or acute territorial infarctio n. There is age-appropriate generalized atrophy. VENTRICLES: Enlarged secondary to atrophy. No acute abnormality. SOFT TISSUES: No significant abnormality of the included soft tissues/orbits. BONES: No acute osseous abnormality. Right parietal craniotomy changes are noted. SINUSES: A left maxillary sinus retention cyst versus polyp measures 1.3 cm. No other significant abn ormality. ADDITIONAL FINDINGS: There is moderate calcification throughout the visualized arteries. IMPRESSION: 1. No acute intracranial abnormality. 2. Additional findings as above. Signer Name: Aron Bazan MD Signed: 01/12/2021 11:04 PM Workstation Name: [id number]
[2021-01-13] MEDS ORDERED: HYDROmorphone 1 MG/1 ML INJ IV PRN (00:43)
[2021-01-13] MEDS ORDERED: ONDANSETRON 4 MG/2 ML INJ IV PRN (00:43)
[2021-01-13] MEDS ORDERED: ACETAMINOPHEN 325 MG TAB PO PRN (00:43)
[2021-01-13] MEDS ORDERED: ALBUTEROL 2.5 MG/3 ML NEBU IH PRN (00:43)
[2021-01-13 00:44] LABS: Bacteria,Urine 1+ /HPF (Negative); Bilirubin,Urine NEG (Negative); Blood,Urine SM (Negative); Color,Urine Yellow (Yellow); Mucus,Urine FEW /HPF; Urobilinogen,Urine < 2.0 mg/dL (<2.0)
[2021-01-13] MEDS ORDERED: hydrALAZINE 20 MG/1 ML INJ IV PRN (00:47)
[2021-01-13] MEDS ORDERED: DEXTROSE 50% IN WATER (25GM) 50 ML SYRINGE IV PRN (00:48)
[2021-01-13 00:51] LABS: Protein,Urine >500 mg/dL (Negative)
--- NOTE | 2021-01-13 00:55 | History and Physical Report ---
History of Present Illness Date of examination: 01/13/21 Date of admission: 01/12/21 23:56 Chief complaint: Altered mental status History of present illness: 85-year-old female, history of diabetes, CHF, hypertension, dementia was brought to the emergency room because of altered mental status. she was her normal self yesterday, aside from going to bed earlier than usual last night at 10 PM. Sister went to work this morning. When she came home from work this afternoon she noticed that patient was somewhat confused, less talkative, and blood pressure was elevated. Son states patient's dementia has been worsening and he does not feel that she should be living in this apartment without anyone there to watch her closely. He states that patient does have a sitter that comes at 6 in the morning and sits with her and makes sure that she takes her medications. Patient is alert and oriented x3. She is slow to respond. She has no complaints. She denies headache, chest pain, fever, shortness of breath, abdominal pain, vomiting, diarrhea. Patient reports she did receive her COVID- [address] scan of the head shows no acute intracranial abnormality. Patient BUN is 31 creatinine 2.2, troponin of 0.033 Past History Past Medical History: arthritis, diabetes, DVT, heart failure, hypertension, renal failure, other (Dementia) Medications and Allergies Allergies Allergy/AdvReac Type Severity Reaction Status Date / Time No Known Allergies Allergy Verified 02/23/15 08:27 Home Medications Medication Instructions Recorded Confirmed Last Taken Type Aspirin [Aspirin BABY CHEW TAB] 81 mg PO QDAY 05/27/14 01/03/18 01/03/18 History Levemir VIAL 18 units SQ QHS 10/31/16 01/03/18 01/03/18 History hydrALAZINE [Apresoline TAB] 100 mg PO TID #90 tab 11/03/16 01/03/18 01/03/18 Rx Carvedilol [Coreg] 12.5 mg PO BID 01/03/18 01/03/18 01/03/18 History Docusate Sodium [Colace CAP] 100 mg PO DAILY 01/03/18 01/03/18 01/03/18 History Fenofibrate [Tricor] 48 mg PO DAILY 01/03/18 01/03/18 01/03/18 History Simvastatin [Zocor] 40 mg PO DAILY 01/03/18 01/03/18 01/03/18 History Timolol 0.5% [Timoptic] 1 drop OU BID 01/03/18 01/03/18 01/03/18 History amLODIPine [Norvasc] 10 mg PO DAILY 01/03/18 01/03/18 01/03/18 History Active Meds: Active Medications Acetaminophen (Acetaminophen 325 Mg Tab) 650 mg PO Q4H PRN PRN Reason: Pain MILD(1-3)/Fever >100.5/MARCANO Albuterol (Albuterol 2.5 Mg/3 Ml Nebu) 2.5 mg IH Q4HRT PRN PRN Reason: Shortness Of Breath Albuterol/Ipratropium (Ipratropium/Albuterol Sulfate 3 Ml Ampul.Neb) 1 ampul IH Q6HRT KIP Amlodipine Besylate (Amlodipine 10 Mg Tab) 10 mg PO DAILY KIP Aspirin (Aspirin 81 Mg Tab Chew) 81 mg PO QDAY KIP Carvedilol (Carvedilol 12.5 Mg Tab) 12.5 mg PO BID [facility] Dextrose (Dextrose 50% In Water (25gm) 50 Ml Syringe) 50 ml IV Q30MIN PRN; Protocol PRN Reason: Hypoglycemia Docusate Sodium (Docusate Sodium 100 Mg Cap) 100 mg PO DAILY KIP Famotidine (Famotidine 20 Mg Tab) 20 mg PO BID KIP Fenofibrate (Fenofibrate 48 Mg Tab) 48 mg PO DAILY [facility] Heparin Sodium (Porcine) (Heparin 5,000 Unit/1 Ml Vial) 5,000 unit SUB-Q Q8HR KIP Hydralazine HCl (Hydralazine 20 Mg/1 Ml Inj) 10 mg IV Q6H PRN PRN Reason: Blood Pressure Hydralazine HCl (Hydralazine 100 Mg Tab) 100 mg PO TID KIP Hydromorphone HCl (Hydromorphone 1 Mg/1 Ml Inj) 0.5 mg IV Q3H PRN PRN Reason: Pain , Severe (7-10) Sodium Chloride (Nacl 0.45% 1000 Ml) 1,000 mls @ 75 mls/hr IV DIRECT KIP Insulin Human Lispro (Insulin Lispro 100 Unit/Ml) 0 unit SUB-Q ACHS KIP; Protocol Miscellaneous Medication (Levemir Vial) 18 units SQ QHS KIP Miscellaneous Medication (Simvastatin [Zocor]) 40 mg PO DAILY [facility] Ondansetron HCl (Ondansetron 4 Mg/2 Ml Inj) 4 mg IV Q8H PRN PRN Reason: Nausea And Vomiting Oxycodone/Acetaminophen (Oxycodone /Acetaminophen 5-325mg Tab) 1 tab PO Q6H PRN PRN Reason: Pain, Moderate (4-6) Sodium Chloride (Sodium Chloride 0.9% 10 Ml Flush Syringe) 10 ml IV BID KIP Sodium Chloride (Sodium Chloride 0.9% 10 Ml Flush Syringe) 10 ml IV PRN PRN PRN Reason: LINE FLUSH Timolol Maleate (Timolol 0.5% Ophth Soln 5 Ml) 1 drops OU BID KIP Review of Systems Neurological: change in mentation Exam - Constitutional Vitals: Temp Pulse Resp BP Pulse Ox 98.5 F 59 L 11 L 213/87 96 01/12/21 22:35 01/13/21 00:00 01/13/21 00:00 01/13/21 00:00 01/13/21 00:00 General appearance: Present: no acute distress, well-nourished - EENT Eyes: Present: PERRL ENT: hearing intact, clear oral mucosa - Neck Neck: Present: supple, normal ROM - Respiratory Respiratory effort: normal Respiratory: bilateral: CTA - Cardiovascular Heart Sounds: Present: S1 & S2. Absent: rub, click - Extremities Extremities: pulses symmetrical, No edema Peripheral Pulses: within normal limits - Abdominal General gastrointestinal: Present: soft, non-tender, non-distended, normal bowel sounds Female genitourinary: Present: normal - Integumentary Integumentary: Present: clear, warm, dry - Musculoskeletal Musculoskeletal: gait normal, strength equal bilaterally - Neurologic Neurologic: CNII-XII intact, moves all extremities HEART Score - HEART Score Troponin: Troponin T 0.033 ng/mL (0.00-0.029) H 01/12/21 21:02 Results - Labs CBC & Chem 7: 01/12/21 21:02 01/12/21 21:02 Labs: Laboratory Last Values WBC 4.8 K/mm3 (4.5-11.0) 01/12/21 21:02 RBC 3.66 M/mm3 (3.65-5.03) 01/12/21 21:02 Hgb 11.9 gm/dl (10.1-14.3) 01/12/21 21:02 Hct 36.6 % (30.3-42.9) 01/12/21 21:02 MCV 100 fl (79-97) H 01/12/21 21:02 MCH 33 pg (28-32) H 01/12/21 21:02 MCHC 33 % (30-34) 01/12/21 21:02 RDW 15.7 % (13.2-15.2) H 01/12/21 21:02 Plt Count 219 K/mm3 (140-440) 01/12/21 21:02 Lymph % (Auto) 21.1 % (13.4-35.0) 01/12/21 21: [place] % (Auto) 7.1 % (0.0-7.3) 01/12/21 21: Eos % (Auto) 0.7 % (0.0-4.3) 01/12/21: Baso % (Auto) 1.1 % (0.0-1.8) 01/12/21 21: Lymph # (Auto) 1.0 K/mm3 (1.2-5.4) L 01/12/21 21: [place] # (Auto) 0.3 K/mm3 (0.0-0.8) 01/12/21 21: Eos # (Auto) 0.0 K/mm3 (0.0-0.4) 01/12/21 21: Baso # (Auto) 0.1 K/mm3 (0.0-0.1) 01/12/21 21: Seg Neutrophils % 70.0 % (40.0-70.0) 01/12/21 21: Seg Neutrophils # 3.3 K/mm3 (1.8-7.7) 01/12/21 21: PT 13.9 Sec. (12.2-14.9) 01/12/21 21: INR 1.02 (0.87-1.13) 01/12/21 21:02 APTT 28.3 Sec. (24.2-36.6) 01/12/21 21:02 Sodium 141 mmol/L (137-145) 01/12/21 21: Potassium 4.7 mmol/L (3.6-5.0) 01/12/21 21:02 Chloride 105.1 mmol/L (98-107) 01/12/21 21:02 Carbon Dioxide 23 mmol/L (22-30) 01/12/21 21:02 Anion Gap 18 mmol/L 01/12/21 21:02 BUN 31 mg/dL (7-17) H 01/12/21 21:02 Creatinine 2.2 mg/dL (0.6-1.2) H 01/12/21 21:02 Estimated GFR 26 ml/min 01/12/21 21:02 BUN/Creatinine Ratio 14 % 01/12/21 21:02 Glucose 69 mg/dL (65-100) 01/12/21 21:02 POC Glucose 89 mg/dL (70-105) 01/12/21 21:05 Calcium 10.3 mg/dL (8.4-10.2) H 01/12/21 21:02 Total Bilirubin 0.30 mg/dL (0.1-1.2) 01/12/21 21:02 Direct Bilirubin < 0.2 mg/dL (0-0.2) 01/12/21 21:02 Indirect Bilirubin 0.1 mg/dL 01/12/21 21:02 AST 18 units/L (5-40) 01/12/21 21:02 ALT 6 units/L (7-56) L 01/12/21 21:02 Alkaline Phosphatase 46 units/L (35-129) 01/12/21 21:02 Troponin T 0.033 ng/mL (0.00-0.029) H 01/12/21 21:02 Total Protein 7.1 g/dL (6.3-8.2) 01/12/21 21:02 Albumin 4.1 g/dL (3.9-5) 01/12/21 21:02 Albumin/Globulin Ratio 1.4 % 01/12/21 21:02 Triglycerides 131 mg/dL (2-149) 01/12/21 21:02 Cholesterol 136 mg/dL (50-199) 01/12/21 21:02 LDL Cholesterol Direct 71 mg/dL (50-130) 01/12/21 21:02 HDL Cholesterol 46 mg/dL (40-59) 01/12/21 21:02 Cholesterol/HDL Ratio 2.95 % 07/29/21 21:02 Urine Bilirubin Neg (Negative) 01/13/21 00:27 Urine RBC (Auto) 3.0 /HPF (0.0-6.0) 01/13/21 00:27 U Epithel Cells (Auto) 19.0 /HPF (0-13.0) H 01/13/21 00:27 - Imaging and Cardiology Chest x-ray: report reviewed CT Scan - head: report reviewed Assessment and Plan VTE prophylaxis?: Chemical Plan of care discussed with patient/family: Yes - Patient Problems (1) Acute metabolic encephalopathy Current Visit: Yes Status: Acute Plan to address problem: Admit the patient to the medical telemetry. Metabolic encephalopathy is most likely secondary to an elevated troponin and renal failure. We will monitor the patient closely. We will continue home medication. Consult cardiology for evaluation. We also consult social contact worker evaluation for discharge planning and placement (2) Hypertensive urgency Current Visit: Yes Status: Acute Plan to address problem: We will put the patient on amlodipine 10 mg p.o. daily Coreg 12.5 mg p.o. twice daily, hydralazine 10 mg IV every 6 hours as needed. Hydralazine 100 mg p.o. 3 times daily. We will monitor the blood pressure closely (3) Acute renal failure Current Visit: No Status: Acute Plan to address problem: Avoid nephrotoxic drug. Renally dose medication. If needed will consult nephrology. Recheck BMP in the morning (4) Elevated troponin Current Visit: No Status: Acute Plan to address problem: Aspirin 81 mg p.o. daily. Simvastatin 40 mg p.o. daily. Fenofibrate 48 mg p.o. daily. Heparin 5000 units subcu every 8 hours. Echocardiogram. Cardiology consult (5) Acute on chronic diastolic CHF (congestive heart failure) Current Visit: No Status: Acute Plan to address problem: Stable. Monitor the patient closely. Intake output chart. Echocardiogram cardiology consult. We continue the home medication (6) Type 2 diabetes mellitus Current Visit: No Status: Acute Plan to address problem: 1800 kcal ADA diet. Humalog sliding scale low-dose coverage. Levemir 18 units subcu every nightly. Diabetic education (7) DVT prophylaxis Current Visit: Yes Status: Acute Plan to address problem: Heparin 5000 units subcu every 8 hours for DVT prophylaxis. Pepcid 20 mg p.o. twice daily for GI prophylaxis. Patient is a full code
[2021-01-13] MEDS ORDERED: SODIUM CHLORIDE 0.45% 1000 ML 1,000 ML IV SCH (01:00)
[2021-01-13] MEDS: HEPARIN 5,000 UNIT/1 ML VIAL SUB-Q SCH ×3 (06:22→22:23)
[2021-01-13] MEDS: IPRATROPIUM/ALBUTEROL SULFATE 3 ML AMPUL.NEB IH SCH ×4 (08:43→20:14)
[2021-01-13] MEDS: INSULIN LISPRO 100 UNIT/ML SUB-Q SCH ×4 (09:29→22:38)
[2021-01-13] MEDS ORDERED: SIMVASTATIN 40 MG PO SCH (10:00)
[2021-01-13] MEDS ORDERED: TIMOLOL 0.5% OPHTH SOLN 5 ML OU SCH (10:00)
[2021-01-13] MEDS ORDERED: FAMOTIDINE 20 MG TAB PO SCH (10:00)
[2021-01-13] MEDS ORDERED: carvediloL 12.5 MG TAB PO SCH (10:00)
--- NOTE | 2021-01-13 11:26 | Consultation ---
History of Present Illness - Reason for Consult Consult date: 01/13/21 acute renal failure, chronic renal failure - History of Present Illness 85-year-old female, history of diabetes, CHF, hypertension, dementia was brought to the emergency room because of altered mental status. family stated patient's dementia but is alert and oriented x3. She has no complaints. She denies headache, chest pain, fever, shortness of breath, abdominal pain, vomiting, diarrhea. CXR was negatve for acute pulmonary process. CT head was negative for acute intracranial etiology. lab results noted for eelevated Cr and renal consult was requested Past History Past Medical History: arthritis, diabetes, DVT, heart failure, hypertension, renal failure, other (Dementia) Medications and Allergies Allergies Allergy/AdvReac Type Severity Reaction Status Date / Time No Known Allergies Allergy Verified 02/23/15 08:27 Home Medications Medication Instructions Recorded Confirmed Last Taken Type Aspirin [Aspirin BABY CHEW TAB] 81 mg PO QDAY 05/27/14 01/03/18 01/03/18 History Levemir VIAL 18 units SQ QHS 10/31/16 01/03/18 01/03/18 History hydrALAZINE [Apresoline TAB] 100 mg PO TID #90 tab 11/03/16 01/03/18 01/03/18 Rx Carvedilol [Coreg] 12.5 mg PO BID 01/03/18 01/03/18 01/03/18 History Docusate Sodium [Colace CAP] 100 mg PO DAILY 01/03/18 01/03/18 01/03/18 History Fenofibrate [Tricor] 48 mg PO DAILY 01/03/18 01/03/18 01/03/18 History Simvastatin [Zocor] 40 mg PO DAILY 01/03/18 01/03/18 01/03/18 History Timolol 0.5% [Timoptic] 1 drop OU BID 01/03/18 01/03/18 01/03/18 History amLODIPine [Norvasc] 10 mg PO DAILY 01/03/18 01/03/18 01/03/18 History Active Meds: Active Medications Acetaminophen (Acetaminophen 325 Mg Tab) 650 mg PO Q4H PRN PRN Reason: Pain MILD(1-3)/Fever >100.5/MARCANO Albuterol (Albuterol 2.5 Mg/3 Ml Nebu) 2.5 mg IH Q4HRT PRN PRN Reason: Shortness Of Breath Albuterol/Ipratropium (Ipratropium/Albuterol Sulfate 3 Ml Ampul.Neb) 1 ampul IH Q6HRT [facility] Last Admin: 01/13/21 08:43 Dose: Not Given Documented by: Amlodipine Besylate (Amlodipine 10 Mg Tab) 10 mg PO DAILY [facility] Aspirin (Aspirin 81 Mg Tab Chew) 81 mg PO QDAY [facility] Carvedilol (Carvedilol 12.5 Mg Tab) 12.5 mg PO BID [facility] Dextrose (Dextrose 50% In Water (25gm) 50 Ml Syringe) 50 ml IV Q30MIN PRN; Protocol PRN Reason: Hypoglycemia Docusate Sodium (Docusate Sodium 100 Mg Cap) 100 mg PO DAILY [facility] Famotidine (Famotidine 10 Mg Tab) 10 mg PO BID [facility] Fenofibrate (Fenofibrate 48 Mg Tab) 48 mg PO DAILY [facility] Heparin Sodium (Porcine) (Heparin 5,000 Unit/1 Ml Vial) 5,000 unit SUB-Q Q8HR [facility] Last Admin: 01/13/21 06:22 Dose: 5,000 unit Documented by: Hydralazine HCl (Hydralazine 20 Mg/1 Ml Inj) 10 mg IV Q6H PRN PRN Reason: Blood Pressure Last Admin: 01/13/21 06:20 Dose: 10 mg Documented by: Hydralazine HCl (Hydralazine 100 Mg Tab) 100 mg PO TID [facility] Hydromorphone HCl (Hydromorphone 1 Mg/1 Ml Inj) 0.5 mg IV Q3H PRN PRN Reason: Pain , Severe (7-10) Sodium Chloride (Nacl 0.45% 1000 Ml) 1,000 mls @ 75 mls/hr IV DIRECT [facility] Insulin Glargine (Insulin Glargine 100 Units/Ml) 18 units SUB-Q QHS [facility] Insulin Human Lispro (Insulin Lispro 100 Unit/Ml) 0 unit SUB-Q ACHS [facility]; Protocol Last Admin: 01/13/21 09:29 Dose: Not Given Documented by: Ondansetron HCl (Ondansetron 4 Mg/2 Ml Inj) 4 mg IV Q8H PRN PRN Reason: Nausea And Vomiting Oxycodone/Acetaminophen (Oxycodone /Acetaminophen 5-325mg Tab) 1 tab PO Q6H PRN PRN Reason: Pain, Moderate (4-6) Pravastatin Sodium (Pravastatin 80 Mg Tab) 80 mg PO QHS KIP Sodium Chloride (Sodium Chloride 0.9% 10 Ml Flush Syringe) 10 ml IV BID KIP Sodium Chloride (Sodium Chloride 0.9% 10 Ml Flush Syringe) 10 ml IV PRN PRN PRN Reason: LINE FLUSH Timolol Maleate (Timolol 0.5% Ophth Soln 5 Ml) 1 drops OU BID KIP Review of Systems All systems: negative (weaness) Exam - Vital Signs Vital signs: Vital Signs Pulse Resp BP Pulse Ox 52 L 12 207/77 99 01/12/21 22:00 01/12/21 22:00 01/12/21 22:00 01/12/21 22:00 - General Appearance General appearance: well-developed, well-nourished EENT: ATNC, PERRL Neck: Present: neck supple Respiratory: Clear to Ascultation Heart: regular, S1S2 Gastrointestinal: Present: normoactive bowel sounds Integumentary: no rash, warm and dry Results - Lab Results 01/12/21 21:02 01/12/21 21:02 Most recent lab results Calcium 10.3 mg/dL (8.4-10.2) H 01/12/21 21:02 Assessment and Plan (1) Acute metabolic encephalopathy (2) Hypertensive urgency (3) Acute renal failure (4) Elevated troponin (5) Acute on chronic diastolic CHF (congestive heart failure) (6) Type 2 diabetes mellitus Baseline Cr possibly ~1.5 renal failure could be secondary to prerenal azotemia will check renal US will check urine lytes will check CK renally dose meds strict I&O daily weight Kareem Epperson MD [phone]
--- NOTE | 2021-01-13 11:50 | Event Note ---
Date: 01/13/21 Patient with hypertensive urgency, acute on CKD. I have seen and examined her. Continue current management.
[2021-01-13] MEDS: FENOFIBRATE 48 MG TAB PO SCH (11:52)
[2021-01-13] MEDS: DOCUSATE SODIUM 100 MG CAP PO SCH (11:53)
[2021-01-13] MEDS: amLODIPine 10 MG TAB PO SCH (11:53)
[2021-01-13] MEDS: ASPIRIN 81 MG TAB CHEW PO SCH (11:53)
[2021-01-13] MEDS: hydrALAZINE 100 MG TAB PO SCH ×3 (12:54→22:31)
[2021-01-13] MEDS: FAMOTIDINE 10 MG TAB PO SCH ×2 (14:33→22:30)
--- NOTE | 2021-01-13 14:48 | Consultation ---
History of Present Illness Consult date: 01/13/21 Consult reason: elevated troponin History of present illness: Patient is an 85-year-old woman who was brought to the emergency room with altered mental status, found in the field with hypoglycemia, blood sugar of 79. In addition, there was sinus bradycardia with a heart rate in the mid 40s. Otherwise, patient had no chest pain, no shortness of breath, no palpitations and no acute cardiac complaints. ECG in the emergency room was a sinus bradycardia at 44, with left bundle branch block morphology. Chest x-ray revealed a normal-sized cardiac silhouette and clear lungs. The measured troponin level was marginally elevated at 0.03, which prompted cardiac consultation. The patient has a cardiac history of a dilated nonischemic cardiomyopathy, chronic systolic left ventricular dysfunction and mild aortic stenosis. She is on guideline directed medical therapy including carvedilol.comorbidities include hypertension, diabetes and chronic kidney disease. 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 At this time, patient is still in the emergency room awaiting bed placement, is currently awake, but appears somewhat lethargic, no acute distress. Her sinus rate has improved, currently 55 bpm. On her laboratory profile, she previously had a TSH level mildly elevated at 4.2, but not yet rechecked on the current presentation. Past History Past Medical History: arthritis, diabetes, DVT, heart failure, hypertension, renal failure, other (Dementia) Medications and Allergies Allergies Allergy/AdvReac Type Severity Reaction Status Date / Time No Known Allergies Allergy Verified 02/23/15 08:27 Home Medications Medication Instructions Recorded Confirmed Last Taken Type Aspirin [Aspirin BABY CHEW TAB] 81 mg PO QDAY 05/27/14 01/03/18 01/03/18 History Levemir VIAL 18 units SQ QHS 10/31/16 01/03/18 01/03/18 History hydrALAZINE [Apresoline TAB] 100 mg PO TID #90 tab 11/03/16 01/03/18 01/03/18 Rx Carvedilol [Coreg] 12.5 mg PO BID 01/03/18 01/03/18 01/03/18 History Docusate Sodium [Colace CAP] 100 mg PO DAILY 01/03/18 01/03/18 01/03/18 History Fenofibrate [Tricor] 48 mg PO DAILY 01/03/18 01/03/18 01/03/18 History Simvastatin [Zocor] 40 mg PO DAILY 01/03/18 01/03/18 01/03/18 History Timolol 0.5% [Timoptic] 1 drop OU BID 01/03/18 01/03/18 01/03/18 History amLODIPine [Norvasc] 10 mg PO DAILY 01/03/18 01/03/18 01/03/18 History Active Meds: Active Medications Acetaminophen (Acetaminophen 325 Mg Tab) 650 mg PO Q4H PRN PRN Reason: Pain MILD(1-3)/Fever >100.5/MARCANO Albuterol (Albuterol 2.5 Mg/3 Ml Nebu) 2.5 mg IH Q4HRT PRN PRN Reason: Shortness Of Breath Albuterol/Ipratropium (Ipratropium/Albuterol Sulfate 3 Ml Ampul.Neb) 1 ampul IH Q6HRT [facility] Last Admin: 01/13/21 08:43 Dose: Not Given Documented by: Amlodipine Besylate (Amlodipine 10 Mg Tab) 10 mg PO DAILY [facility] Last Admin: 01/13/21 11:53 Dose: 10 mg Documented by: Aspirin (Aspirin 81 Mg Tab Chew) 81 mg PO QDAY [facility] Last Admin: 01/13/21 11:53 Dose: 81 mg Documented by: Carvedilol (Carvedilol 12.5 Mg Tab) 12.5 mg PO BID [facility] Last Admin: 01/13/21 14:33 Dose: 12.5 mg Documented by: Dextrose (Dextrose 50% In Water (25gm) 50 Ml Syringe) 50 ml IV Q30MIN PRN; Protocol PRN Reason: Hypoglycemia Docusate Sodium (Docusate Sodium 100 Mg Cap) 100 mg PO DAILY [facility] Last Admin: 01/13/21 11:53 Dose: 100 mg Documented by: Famotidine (Famotidine 10 Mg Tab) 10 mg PO BID [facility] Last Admin: 01/13/21 14:33 Dose: 10 mg Documented by: Fenofibrate (Fenofibrate 48 Mg Tab) 48 mg PO DAILY [facility] Last Admin: 01/13/21 11:52 Dose: 48 mg Documented by: Heparin Sodium (Porcine) (Heparin 5,000 Unit/1 Ml Vial) 5,000 unit SUB-Q Q8HR [facility] Last Admin: 01/13/21 06:22 Dose: 5,000 unit Documented by: Hydralazine HCl (Hydralazine 20 Mg/1 Ml Inj) 10 mg IV Q6H PRN PRN Reason: Blood Pressure Last Admin: 01/13/21 06:20 Dose: 10 mg Documented by: Hydralazine HCl (Hydralazine 100 Mg Tab) 100 mg PO TID [facility] Last Admin: 01/13/21 12:54 Dose: Not Given Documented by: Hydromorphone HCl (Hydromorphone 1 Mg/1 Ml Inj) 0.5 mg IV Q3H PRN PRN Reason: Pain , Severe (7-10) Sodium Chloride (Nacl 0.45% 1000 Ml) 1,000 mls @ 75 mls/hr IV DIRECT [facility] Insulin Glargine (Insulin Glargine 100 Units/Ml) 18 units SUB-Q QHS [facility] Insulin Human Lispro (Insulin Lispro 100 Unit/Ml) 0 unit SUB-Q ACHS [facility]; Protocol Last Admin: 01/13/21 11:52 Dose: 1 unit Documented by: Ondansetron HCl (Ondansetron 4 Mg/2 Ml Inj) 4 mg IV Q8H PRN PRN Reason: Nausea And Vomiting Oxycodone/Acetaminophen (Oxycodone /Acetaminophen 5-325mg Tab) 1 tab PO Q6H PRN PRN Reason: Pain, Moderate (4-6) Pravastatin Sodium (Pravastatin 80 Mg Tab) 80 mg PO QHS [facility] Sodium Chloride (Sodium Chloride 0.9% 10 Ml Flush Syringe) 10 ml IV BID [facility] Last Admin: 01/13/21 11:54 Dose: 10 ml Documented by: Sodium Chloride (Sodium Chloride 0.9% 10 Ml Flush Syringe) 10 ml IV PRN PRN PRN Reason: LINE FLUSH Timolol Maleate (Timolol 0.5% Ophth Soln 5 Ml) 1 drops OU BID [facility] Last Admin: 01/13/21 11:53 Dose: 1 drops Documented by: Review of Systems Cardiovascular: shortness of breath, no chest pain, no orthopnea, no palpi tations, no rapid/irregular heart beat, no edema, no syncope, no lightheadedness Physical Examination Vital Signs Pulse Resp BP Pulse Ox 52 L 12 207/77 99 01/12/21 22:00 01/12/21 22:00 01/12/21 22:00 01/12/21 22:00 General appearance: no acute distress HEENT: Positive: PERRL Neck: Positive: neck supple Cardiac: Positive: Regular Rhythm Lungs: Positive: Decreased Breath Sounds Neuro: Positive: Grossly Intact, Weakness Abdomen: Positive: Soft Female genitourinary: deferred Skin: Positive: Clear Extremities: Absent: edema Results 01/12/21 21:02 01/12/21 21:02 Cardiac Enzymes 01/12/21 Range/Units 21:02 AST 18 (5-40) units/L Coagulation 01/12/21 Range/Units 21:02 PT 13.9 (12.2-14.9) Sec. INR 1.02 (0.87-1.13) APTT 28.3 (24.2-36.6) Sec. Lipids 01/12/21 Range/Units 21:02 Triglycerides 131 (2-149) mg/dL Cholesterol 136 (50-199) mg/dL HDL Cholesterol 46 (40-59) mg/dL Cholesterol/HDL Ratio 2.95 % CBC 01/12/21 Range/Units 21:02 WBC 4.8 (4.5-11.0) K/mm3 RBC 3.66 (3.65-5.03) M/mm3 Hgb 11.9 (10.1-14.3) gm/dl Hct 36.6 (30.3-42.9) % Plt Count 219 (140-440) K/mm3 Lymph # (Auto) 1.0 L (1.2-5.4) K/mm3 [place] # (Auto) 0.3 (0.0-0.8) K/mm3 Eos # (Auto) 0.0 (0.0-0.4) K/mm3 Baso # (Auto) 0.1 (0.0-0.1) K/mm3 Comprehensive Metabolic Panel 01/12/21 Range/Units 21:02 Sodium 141 (137-145) mmol/L Potassium 4.7 (3.6-5.0) mmol/L Chloride 105.1 (98-107) mmol/L Carbon Dioxide 23 (22-30) mmol/L BUN 31 H (7-17) mg/dL Creatinine 2.2 H (0.6-1.2) mg/dL Glucose 69 (65-100) mg/dL Calcium 10.3 H (8.4-10.2) mg/dL Direct Bilirubin < 0.2 (0-0.2) mg/dL Indirect Bilirubin 0.1 mg/dL AST 18 (5-40) units/L ALT 6 L (7-56) units/L Alkaline Phosphatase 46 (35-129) units/L Total Protein 7.1 (6.3-8.2) g/dL Albumin 4.1 (3.9-5) g/dL EKG interpretations - Telemetry EKG Rhythm: Sinus Bradycardia Assessment and Plan - Patient Problems (1) Bradycardia Current Visit: Yes Status: Acute Plan to address problem: Patient presented with marked bradycardia associated with altered mental status and hypoglycemia. She is on carvedilol for chronic systolic left ventricular failure. Her previous TSH level was elevated at 4.2. At this time, will recheck a TSH and placed a hold on carvedilol, avoid further AV jose blocking agents. (2) Chronic left ventricular systolic heart failure Current Visit: Yes Status: Acute Plan to address problem: An echocardiogram has been ordered for further assessment of her chronic systolic left ventricular failure. We will continue guideline directed medical therapy except use of beta-blockers or other AV jose blockers at this time. (3) Elevated troponin Current Visit: Yes Status: Acute Plan to address problem: The minimal troponin elevation is likely a nonspecific finding in this clinical setting.
--- NOTE | 2021-01-13 17:57 | Electrocardiograph Report ---
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
[2021-01-13] MEDS ORDERED: LEVEMIR SQ SCH (22:00)
[2021-01-13] MEDS: oxyCODONE /ACETAMINOPHEN 5-325MG TAB PO PRN (22:31)
[2021-01-13] MEDS: PRAVASTATIN 80 MG TAB PO SCH (22:32)
[2021-01-14] MEDS: INSULIN GLARGINE 100 UNITS/ML SUB-Q SCH ×2 (00:50→22:15)
[2021-01-14] MEDS: IPRATROPIUM/ALBUTEROL SULFATE 3 ML AMPUL.NEB IH SCH ×2 (04:07→08:21)
[2021-01-14 06:31] LABS: Basophils % (Auto) 0.9 % (0.0-1.8); Eosinophils # (Auto) 0.2 K/mm3 (0.0-0.4); Eosinophils % (Auto) 4.2 % (0.0-4.3); Hematocrit 30.1 % (30.3-42.9); Lymphocytes # (Auto) 1.1 K/mm3 (1.2-5.4); Lymphocytes % (Auto) 29.2 % (13.4-35.0); Mean Corpuscular HGB Conc 33 % (30-34); Mean Corpuscular Volume 99 fl (79-97); Monocytes # (Auto) 0.4 K/mm3 (0.0-0.8); Monocytes % (Auto) 10.7 % (0.0-7.3); Platelet Count 170 K/mm3 (140-440); Red Blood Count 3.04 M/mm3 (3.65-5.03); Red Cell Distribution Width 15.6 % (13.2-15.2)
[2021-01-14 06:48] LABS: Calcium 8.9 mg/dL (8.4-10.2)
[2021-01-14] MEDS: HEPARIN 5,000 UNIT/1 ML VIAL SUB-Q SCH ×3 (07:37→22:15)
[2021-01-14] MEDS: INSULIN LISPRO 100 UNIT/ML SUB-Q SCH ×4 (07:49→22:16)
--- NOTE | 2021-01-14 08:29 | Progress Note ---
Assessment and Plan (1) Acute metabolic encephalopathy (2) Hypertensive urgency (3) Acute renal failure (4) Elevated troponin (5) Acute on chronic diastolic CHF (congestive heart failure) (6) Type 2 diabetes mellitus Baseline Cr possibly ~1.5 renal failure could be secondary to prerenal azotemia, however, no improvement with 1/2 NS since yesterday, will switch to NS, noted to have small amount of RBC in UA with proteinuria, likely 2/2 to DM, however, will check secondary GN work up with vasculitis and paraprotein will check renal US-pending will check urine lytes-pending will check CK-pending renally dose meds strict I&O daily weight Kareem Epperson MD [phone] Subjective Date of service: 01/14/21 Principal diagnosis: ALLAN Interval history: no overnight events Objective - Vital Signs Vital signs: Vital Signs - 12hr 01/13/21 01/13/21 01/13/21 20:30 20:40 20:50 Temperature Pulse Rate Respiratory Rate Blood Pressure 117/55 117/55 117/55 O2 Sat by Pulse 92 91 91 Oximetry 01/13/21 01/13/21 01/13/21 21:00 21:10 21:20 Temperature Pulse Rate Respiratory Rate Blood Pressure 127/65 127/65 127/65 O2 Sat by Pulse 92 91 93 Oximetry 01/13/21 01/13/21 01/14/21 23:00 23:31 00:19 Temperature 98.6 F Pulse Rate 58 L 62 Respiratory 20 18 Rate Blood Pressure 132/52 O2 Sat by Pulse 95 Oximetry 01/14/21 01/14/21 04:31 08:11 Temperature 98.5 F Pulse Rate 58 L 58 L Respiratory 18 Rate Blood Pressure 140/66 O2 Sat by Pulse 96 100 Oximetry - Lab 01/14/21 06:14 01/14/21 06:14 Most recent lab results Calcium 8.9 mg/dL (8.4-10.2) 01/14/21 06:14 Medications & Allergies - Medications Allergies/Adverse Reactions: Allergies No Known Allergies Allergy (Verified 02/23/15 08:27) Home Medications: Home Medications Medication Instructions Recorded Confirmed Last Taken Type Aspirin [Aspirin BABY CHEW TAB] 81 mg PO QDAY 05/27/14 01/13/21 2 Days Ago History ~01/11/21 Levemir VIAL 18 units SQ QHS 10/31/16 01/13/21 2 Days Ago History ~01/11/21 hydrALAZINE [Apresoline TAB] 100 mg PO TID #90 tab 11/03/16 01/13/21 2 Days Ago Rx ~01/11/21 Carvedilol [Coreg] 12.5 mg PO BID 01/03/18 01/13/21 2 Days Ago History ~01/11/21 Docusate Sodium [Colace CAP] 100 mg PO DAILY 01/03/18 01/13/21 2 Days Ago History ~01/11/21 Fenofibrate [Tricor] 48 mg PO DAILY 01/03/18 01/13/21 2 Days Ago History ~01/11/21 Simvastatin [Zocor] 40 mg PO DAILY 01/03/18 01/13/21 2 Days Ago History ~01/11/21 Timolol 0.5% [Timoptic] 1 drop OU BID 01/03/18 01/13/21 2 Days Ago History ~01/11/21 amLODIPine [Norvasc] 10 mg PO DAILY 01/03/18 01/13/21 2 Days Ago History ~01/11/21 Active Medications: Generic Name Dose Route Start Last Admin Trade Name Freq PRN Reason Stop Dose Admin Acetaminophen 650 mg 01/13/21 00:43 Acetaminophen 325 Mg Tab PO Q4H PRN Pain MILD(1-3)/Fever >100.5/MARCANO Albuterol 2.5 mg 01/13/21 00:43 Albuterol 2.5 Mg/3 Ml Nebu IH Q4HRT PRN Shortness Of Breath Albuterol/Ipratropium 1 ampul 01/13/21 02:00 01/14/21 08:21 Ipratropium/Albuterol Sulfate 3 Ml Ampul.Neb IH 1 ampul Q6HRT KIP Administration Amlodipine Besylate 10 mg 01/13/21 10:00 01/13/21 11:53 Amlodipine 10 Mg Tab PO 10 mg DAILY KIP Administration Aspirin 81 mg 01/13/21 10:00 01/13/21 11:53 Aspirin 81 Mg Tab Chew PO 81 mg QDAY KIP Administration Dextrose 50 ml 01/13/21 00:48 Dextrose 50% In Water (25gm) 50 Ml Syringe IV Q30MIN PRN Hypoglycemia Protocol Docusate Sodium 100 mg 01/13/21 10:00 01/13/21 11:53 Docusate Sodium 100 Mg Cap PO 100 mg DAILY KIP Administration Famotidine 10 mg 01/13/21 10:00 01/13/21 22:30 Famotidine 10 Mg Tab PO 10 mg BID KIP Administration Fenofibrate 48 mg 01/13/21 10:00 01/13/21 11:52 Fenofibrate 48 Mg Tab PO 48 mg DAILY KIP Administration Heparin Sodium (Porcine) 5,000 unit 01/13/21 06:00 01/14/21 07:37 Heparin 5,000 Unit/1 Ml Vial SUB-Q 5,000 unit Q8HR KIP Administration Hydralazine HCl 10 mg 01/13/21 00:47 01/13/21 06:20 Hydralazine 20 Mg/1 Ml Inj IV 10 mg Q6H PRN Administration Blood Pressure Hydralazine HCl 100 mg 01/13/21 08:00 01/13/21 22:31 Hydralazine 100 Mg Tab PO 100 mg TID KIP Administration Hydromorphone HCl 0.5 mg 01/13/21 00:43 Hydromorphone 1 Mg/1 Ml Inj IV Q3H PRN Pain , Severe (7-10) Sodium Chloride 1,000 mls @ 75 mls/hr 01/13/21 01:00 Nacl 0.45% 1000 Ml IV DIRECT KIP Insulin Glargine 18 units 01/13/21 22:00 01/14/21 00:50 Insulin Glargine 100 Units/Ml SUB-Q 18 units QHS [facility] Administration Insulin Human Lispro 0 unit 01/13/21 07:30 01/13/21 22:38 Insulin Lispro 100 Unit/Ml SUB-Q 3 unit ACHS [facility] Administration Protocol Ondansetron HCl 4 mg 01/13/21 00:43 Ondansetron 4 Mg/2 Ml Inj IV Q8H PRN Nausea And Vomiting Oxycodone/Acetaminophen 1 tab 01/13/21 00:43 01/13/21 22:31 Oxycodone /Acetaminophen 5-325mg Tab PO 1 tab Q6H PRN Administration Pain, Moderate (4-6) Pravastatin Sodium 80 mg 01/13/21 22:00 01/13/21 22:32 Pravastatin 80 Mg Tab PO 80 mg QHS [facility] Administration Sodium Chloride 10 ml 01/13/21 10:00 01/13/21 22:39 Sodium Chloride 0.9% 10 Ml Flush Syringe IV 10 ml BID KIP Administration Sodium Chloride 10 ml 01/13/21 00:43 Sodium Chloride 0.9% 10 Ml Flush Syringe IV PRN PRN LINE FLUSH
--- NOTE | 2021-01-14 08:54 | Progress Note ---
Assessment and Plan Assessment and plan: (1) Acute metabolic encephalopathy Current Visit: Yes Status: Acute Plan to address problem: Admit the patient to the medical telemetry. Metabolic encephalopathy is most likely secondary to an elevated troponin and renal failure. We will monitor the patient closely. We will continue home medication. Consult cardiology for evaluation. We also consult social service agency director evaluation for discharge planning and placement (2) Hypertensive urgency Current Visit: Yes Status: Acute Plan to address problem: We will put the patient on amlodipine 10 mg p.o. daily Coreg 12.5 mg p.o. twice daily, hydralazine 10 mg IV every 6 hours as needed. Hydralazine 100 mg p.o. 3 times daily. We will monitor the blood pressure closely (3) Acute renal failure Current Visit: No Status: Acute Plan to address problem: Avoid nephrotoxic drug. Renally dose medication. If needed will consult nephrology. Recheck BMP in the morning (4) Elevated troponin Current Visit: No Status: Acute Plan to address problem: Aspirin 81 mg p.o. daily. Simvastatin 40 mg p.o. daily. Fenofibrate 48 mg p.o. daily. Heparin 5000 units subcu every 8 hours. Echocardiogram. Cardiology consult (5) Acute on chronic diastolic CHF (congestive heart failure) Current Visit: No Status: Acute Plan to address problem: Stable. Monitor the patient closely. Intake output chart. Echocardiogram cardiology consult. We continue the home medication (6) Type 2 diabetes mellitus Current Visit: No Status: Acute Plan to address problem: 1800 kcal ADA diet. Humalog sliding scale low-dose coverage. Levemir 18 units subcu every nightly. Diabetic education (7) DVT prophylaxis Current Visit: Yes Status: Acute Plan to address problem: Heparin 5000 units subcu every 8 hours for DVT prophylaxis. Pepcid 20 mg p.o. twice daily for GI prophylaxis. Patient is a full code 01/14/21 Patient with hypertensive urgency and acute on chronic kidney disease. Cr 2.5 today, worse than yesterday. Nephrology following History Interval history: Feels better BP improved No chest pain Hospitalist Physical - Physical exam Narrative exam: Gen: Not in acute distress, lying in bed, obese HEENT: Normocephalic, atraumatic Neck : supple, no JVD Heart:S1 and S2 reg, no murmurs, rubs or gallop Lungs: clear to auscultation bilaterally, no wheeze Abd: Soft , non tender, non distended, normal bowel sounds Ext: No edema, no clubbing, no cyanosis Neuro: Awake, alert, oriented, moves all ext - Constitutional Vitals: Temp Pulse Resp BP Pulse Ox 98.5 F 63 16 140/66 93 01/14/21 04:31 01/14/21 08:21 01/14/21 08:21 01/14/21 04:31 01/14/21 08:26 General appearance: Present: no acute distress HEART Score - HEART Score Troponin: Troponin T 0.033 ng/mL (0.00-0.029) H 01/12/21 21:02 Results - Labs CBC & Chem 7: 01/14/21 06:14 01/14/21 06:14 Labs: Laboratory Last Values WBC 3.9 K/mm3 (4.5-11.0) L 01/14/21 06:14 RBC 3.04 M/mm3 (3.65-5.03) L 01/14/21 06:14 Hgb 10.0 gm/dl (10.1-14.3) L 01/14/21 06:14 Hct 30.1 % (30.3-42.9) L D 01/14/21 06:14 MCV 99 fl (79-97) H 01/14/21 06:14 MCH 33 pg (28-32) H 01/14/21 06:14 MCHC 33 % (30-34) 01/14/21 06:14 RDW 15.6 % (13.2-15.2) H 01/14/21 06:14 Plt Count 170 K/mm3 (140-440) 01/14/21 06:14 Lymph % (Auto) 29.2 % (13.4-35.0) 01/14/21 06:14 [place] % (Auto) 10.7 % (0.0-7.3) H 01/14/21 06:14 Eos % (Auto) 4.2 % (0.0-4.3) 01/14/21 06:14 Baso % (Auto) 0.9 % (0.0-1.8) 01/14/21 06:14 Lymph # (Auto) 1.1 K/mm3 (1.2-5.4) L 01/14/21 06:14 [place] # (Auto) 0.4 K/mm3 (0.0-0.8) 01/14/21 06:14 Eos # (Auto) 0.2 K/mm3 (0.0-0.4) 01/14/21 06:14 Baso # (Auto) 0.0 K/mm3 (0.0-0.1) 01/14/21 06:14 Seg Neutrophils % 55.0 % (40.0-70.0) 01/14/21 06:14 Seg Neutrophils # 2.1 K/mm3 (1.8-7.7) 01/14/21 06:14 PT 13.9 Sec. (12.2-14.9) 01/12/21 21:02 INR 1.02 (0.87-1.13) 01/12/21 21:02 APTT 28.3 Sec. (24.2-36.6) 01/12/21 21:02 Sodium 137 mmol/L (137-145) 01/14/21 06:14 Potassium 4.1 mmol/L (3.6-5.0) 01/14/21 06:14 Chloride 104.9 mmol/L (98-107) 01/14/21 06:14 Carbon Dioxide 21 mmol/L (22-30) L 01/14/21 06:14 Anion Gap 15 mmol/L 01/14/21 06:14 BUN 37 mg/dL (7-17) H 01/14/21 06:14 Creatinine 2.5 mg/dL (0.6-1.2) H 01/14/21 06:14 Estimated GFR 22 ml/min 01/14/21 06:14 BUN/Creatinine Ratio 15 % 01/14/21 06:14 Glucose 195 mg/dL (65-100) H 01/14/21 06:14 POC Glucose 179 mg/dL (70-105) H 01/14/21 07:34 Calcium 8.9 mg/dL (8.4-10.2) 01/14/21 06:14 Total Bilirubin 0.30 mg/dL (0.1-1.2) 01/12/21 21:02 Direct Bilirubin < 0.2 mg/dL (0-0.2) 01/12/21 21:02 Indirect Bilirubin 0.1 mg/dL 01/12/21 21:02 AST 18 units/L (5-40) 01/12/21 21:02 ALT 6 units/L (7-56) L 01/12/21 21:02 Alkaline Phosphatase 46 units/L (35-129) 01/12/21 21:02 Troponin T 0.033 ng/mL (0.00-0.029) H 01/12/21 21:02 Total Protein 7.1 g/dL (6.3-8.2) 01/12/21 21:02 Albumin 4.1 g/dL (3.9-5) 01/12/21 21:02 Albumin/Globulin Ratio 1.4 % 01/12/21 21:02 Triglycerides 131 mg/dL (2-149) 01/12/21 21: Cholesterol 136 mg/dL (50-199) 01/12/21 21:02 LDL Cholesterol Direct 71 mg/dL (50-130) 01/12/21 21:02 HDL Cholesterol 46 mg/dL (40-59) 01/12/21 21:02 Cholesterol/HDL Ratio 2.95 % 01/12/21 21:02 TSH 2.120 mlU/mL (0.270-4.200) 01/13/21 18:32 Urine Color Yellow (Yellow) 01/13/21 00:27 Urine Turbidity Cloudy (Clear) 01/13/21 00:27 Urine pH 7.0 (5.0-7.0) 01/13/21 00:27 Ur Specific [place] 1.008 (1.003-1.030) 01/13/21 00:27 Urine Protein >500 mg/dL (Negative) 01/13/21 00:27 Urine Glucose (UA) Neg mg/dL (Negative) 01/13/21 00:27 Urine Ketones Neg mg/dL (Negative) 01/13/21 00:27 Urine Blood Sm (Negative) 01/13/21 00:27 Urine Nitrite Neg (Negative) 01/13/21 00: Urine Bilirubin Neg (Negative) 01/13/21 00: Urine Urobilinogen < 2.0 mg/dL (<2.0) 01/13/21 00:27 Ur Leukocyte Esterase Neg (Negative) 01/13/21 00:27 Urine WBC (Auto) 3.0 /HPF (0.0-6.0) 01/13/21 00:27 Urine RBC (Auto) 3.0 /HPF (0.0-6.0) 01/13/21 00:27 U Epithel Cells (Auto) 19.0 /HPF (0-13.0) H 01/13/21 00:27 Urine Bacteria (Auto) 1+ /HPF (Negative) 01/13/21 00:27 Urine Mucus Few /HPF 01/13/21 00:27 Peguero/IV: Voiding Method External Female Catheter Active Medications - Current Medications Current Medications: Generic Name Dose Route Start Last Admin Trade Name Freq PRN Reason Stop Dose Admin Acetaminophen 650 mg 01/13/21 00:43 Acetaminophen 325 Mg Tab PO Q4H PRN Pain MILD(1-3)/Fever >100.5/MARCANO Albuterol 2.5 mg 01/13/21 00:43 Albuterol 2.5 Mg/3 Ml Nebu IH Q4HRT PRN Shortness Of Breath Albuterol/Ipratropium 1 ampul 01/14/21 20:00 Ipratropium/Albuterol Sulfate 3 Ml Ampul.Neb IH BIDRT KIP Amlodipine Besylate 10 mg 01/13/21 10:00 01/13/21 11:53 Amlodipine 10 Mg Tab PO 10 mg DAILY KIP Administration Aspirin 81 mg 01/13/21 10:00 01/13/21 11:53 Aspirin 81 Mg Tab Chew PO 81 mg QDAY KIP Administration Dextrose 50 ml 01/13/21 00:48 Dextrose 50% In Water (25gm) 50 Ml Syringe IV Q30MIN PRN Hypoglycemia Protocol Docusate Sodium 100 mg 01/13/21 10:00 01/13/21 11:53 Docusate Sodium 100 Mg Cap PO 100 mg DAILY KIP Administration Famotidine 10 mg 01/13/21 10:00 01/13/21 22:30 Famotidine 10 Mg Tab PO 10 mg BID KIP Administration Fenofibrate 48 mg 01/13/21 10:00 01/13/21 11:52 Fenofibrate 48 Mg Tab PO 48 mg DAILY KIP Administration Heparin Sodium (Porcine) 5,000 unit 01/13/21 06:00 01/14/21 07:37 Heparin 5,000 Unit/1 Ml Vial SUB-Q 5,000 unit Q8HR KIP Administration Hydralazine HCl 10 mg 01/13/21 00:47 01/13/21 06:20 Hydralazine 20 Mg/1 Ml Inj IV 10 mg Q6H PRN Administration Blood Pressure Hydralazine HCl 100 mg 01/13/21 08:00 01/13/21 22:31 Hydralazine 100 Mg Tab PO 100 mg TID KIP Administration Hydromorphone HCl 0.5 mg 01/13/21 00:43 Hydromorphone 1 Mg/1 Ml Inj IV Q3H PRN Pain , Severe (7-10) Sodium Chloride 1,000 mls @ 100 mls/hr 01/14/21 09:00 Nacl 0.9% 1000 Ml IV DIRECT KIP Insulin Glargine 18 units 01/13/21 22:00 01/14/21 00:50 Insulin Glargine 100 Units/Ml SUB-Q 18 units QHS KIP Administration Insulin Human Lispro 0 unit 01/13/21 07:30 01/13/21 22:38 Insulin Lispro 100 Unit/Ml SUB-Q 3 unit ACHS KIP Administration Protocol Ondansetron HCl 4 mg 01/13/21 00:43 Ondansetron 4 Mg/2 Ml Inj IV Q8H PRN Nausea And Vomiting Oxycodone/Acetaminophen 1 tab 01/13/21 00:43 01/13/21 22:31 Oxycodone /Acetaminophen 5-325mg Tab PO 1 tab Q6H PRN Administration Pain, Moderate (4-6) Pravastatin Sodium 80 mg 01/13/21 22:00 01/13/21 22:32 Pravastatin 80 Mg Tab PO 80 mg QHS KIP Administration Sodium Chloride 10 ml 01/13/21 10:00 01/13/21 22:39 Sodium Chloride 0.9% 10 Ml Flush Syringe IV 10 ml BID KIP Administration Sodium Chloride 10 ml 01/13/21 00:43 Sodium Chloride 0.9% 10 Ml Flush Syringe IV PRN PRN LINE FLUSH Nutrition/Malnutrition Assess - Dietary Evaluation Nutrition/Malnutrition Findings: Nutrition Notes Start: 01/13/21 07:40 Freq: Status: Active Protocol: Document 01/13/21 07:40 AZRA (Rec: 01/13/21 07:41 AZRA [id number]) Nutrition Notes Need for Assessment generated from: MD Order Initial or Follow up Brief Note Subjective/Other Information MD consult for diet education. Due to advanced age and dementia, pt not appropriate for diet education. Nutrition Intervention Revisit per MD consult or patient Sign Off request:
[2021-01-14] MEDS ORDERED: SODIUM CHLORIDE 0.9% 1000 ML 1,000 ML IV SCH (09:00)
--- NOTE | 2021-01-14 09:58 | Progress Note ---
Assessment and Plan Altered mental status and Encephalopathy Mild-Moderate Sinus bradycardia with underlying LBBB: Doubt this was the cause of AMS Non ischemic cardiomyopathy with EF 35-40% Htn DM CKD Nonspecific troponin elevation in setting of CKD Recommend: Continue to hold beta henry for now Outpatient EP evaluation as she may ultimately need PPM so she can tolerate beta henry due to underlying cardiomyopathy Subjective Date of service: 01/14/21 Principal diagnosis: ALLAN Interval history: No acute events. Bradycardia improved. Objective Vital Signs Temp Pulse Pulse Resp Resp BP BP 01/14/21 08:46 97.9 F 66 18 143/61 01/14/21 08:26 01/14/21 08:24 01/14/21 08:21 63 16 01/14/21 08:11 58 L 01/14/21 04:31 98.5 F 58 L 18 140/66 01/14/21 00:19 98.6 F 62 18 132/52 01/13/21 23:31 20 01/13/21 23:00 58 L 01/13/21 21:20 127/65 01/13/21 21:10 127/65 01/13/21 21:00 127/65 01/13/21 20:50 117/55 01/13/21 20:40 117/55 01/13/21 20:30 117/55 01/13/21 20:23 98.5 F 72 18 179/81 01/13/21 20:22 117/55 01/13/21 20:20 117/55 01/13/21 20:10 117/55 01/13/21 20:00 66 18 117/55 01/13/21 19:50 114/64 01/13/21 19:40 114/64 01/13/21 19:31 01/13/21 19:30 114/64 01/13/21 19:20 114/64 01/13/21 19:10 114/64 01/13/21 19:00 114/64 01/13/21 18:50 123/107 01/13/21 18:40 123/107 01/13/21 18:30 123/107 01/13/21 18:20 177/84 01/13/21 18:10 177/84 01/13/21 18:00 177/84 01/13/21 17:50 148/66 01/13/21 17:40 123/107 01/13/21 17:30 148/66 01/13/21 16:20 53 L 16 148/66 01/13/21 16:10 54 L 13 148/66 01/13/21 16:00 54 L 13 148/66 01/13/21 15:54 54 L 16 153/68 01/13/21 15:50 54 L 14 153/68 01/13/21 15:40 53 L 15 153/68 01/13/21 15:30 55 L 12 153/68 01/13/21 15:20 54 L 13 153/68 01/13/21 15:10 52 L 10 L 153/68 01/13/21 15:00 55 L 11 L 153/68 01/13/21 14:50 58 L 12 149/64 01/13/21 14:40 62 9 L 149/64 01/13/21 14:33 55 L 149/64 01/13/21 14:00 63 14 149/64 01/13/21 13:00 54 L 12 167/67 01/13/21 12:00 64 14 183/80 01/13/21 11:53 57 L 168/73 01/13/21 11:00 54 L 11 L 168/73 01/13/21 10:00 56 L 12 158/67 Pulse Ox 01/14/21 08:46 93 01/14/21 08:26 93 01/14/21 08:24 93 01/14/21 08:21 01/14/21 08:11 100 01/14/21 04:31 96 01/14/21 00:19 95 01/13/21 23:31 01/13/21 23:00 01/13/21 21:20 93 01/13/21 21:10 91 01/13/21 21:00 92 01/13/21 20:50 91 01/13/21 20:40 91 01/13/21 20:30 92 01/13/21 20:23 95 01/13/21 20:22 90 01/13/21 20:20 91 01/13/21 20:10 86 01/13/21 20:00 91 01/13/21 19:50 91 01/13/21 19:40 91 01/13/21 19:31 99 01/13/21 19:30 89 01/13/21 19:20 93 01/13/21 19:10 93 01/13/21 19:00 90 01/13/21 18:50 95 01/13/21 18:40 89 01/13/21 18:30 95 01/13/21 18:20 84 01/13/21 18:10 99 01/13/21 18:00 97 01/13/21 17:50 71 L 01/13/21 17:40 64 L 01/13/21 17:30 01/13/21 16:20 97 01/13/21 16:10 98 01/13/21 16:00 98 01/13/21 15:54 97 01/13/21 15:50 98 01/13/21 15:40 98 01/13/21 15:30 99 01/13/21 15:20 97 01/13/21 15:10 96 01/13/21 15:00 98 01/13/21 14:50 97 01/13/21 14:40 97 01/13/21 14:33 01/13/21 14:00 98 01/13/21 13:00 95 01/13/21 12:00 94 01/13/21 11:53 01/13/21 11:00 97 01/13/21 10:00 95 - Physical Examination HEENT: Positive: PERRL Neck: Positive: neck supple Cardiac: Positive: Reg Rate and Rhythm Lungs: Positive: clear to auscultation Abdomen: Positive: Soft, Active Bowel Sounds Skin: Positive: Clear Extremities: Absent: edema - Labs and Meds CBC 01/14/21 Range/Units 06:14 WBC 3.9 L (4.5-11.0) K/mm3 RBC 3.04 L (3.65-5.03) M/mm3 Hgb 10.0 L (10.1-14.3) gm/dl Hct 30.1 L D (30.3-42.9) % Plt Count 170 (140-440) K/mm3 Lymph # (Auto) 1.1 L (1.2-5.4) K/mm3 [place] # (Auto) 0.4 (0.0-0.8) K/mm3 Eos # (Auto) 0.2 (0.0-0.4) K/mm3 Baso # (Auto) 0.0 (0.0-0.1) K/mm3 Comprehensive Metabolic Panel 07/31/21 Range/Units 06:14 Sodium 137 (137-145) mmol/L Potassium 4.1 (3.6-5.0) mmol/L Chloride 104.9 (98-107) mmol/L Carbon Dioxide 21 L (22-30) mmol/L BUN 37 H (7-17) mg/dL Creatinine 2.5 H (0.6-1.2) mg/dL Glucose 195 H (65-100) mg/dL Calcium 8.9 (8.4-10.2) mg/dL
--- NOTE | 2021-01-14 10:46 | Ultrasound Report ---
ULTRASOUND RENAL INDICATION: renal failure. COMPARISON: Prior renal ultrasound 11/01/2016. FINDINGS: RIGHT KIDNEY: Size: 6.3 x 2.9 x 4.5 cm. Echogenicity: Increased. Cortical thickness: 0.9 cm Hydronephrosis: None. Cyst or mass: None. Stones: None. LEFT KIDNEY: Size: 9.2 x 4.5 x 4.9 cm cm. Echogenicity: Increased. Cortical thickness: Normal. 2.4 cm Hydronephrosis: None. Cyst or mass: None. Stones: None. Urinary Bladder: No significant abnormality. Free Fluid: None. Additional Findings: None. IMPRESSION 1. Kidneys are echogenic consistent with medical renal disease. No hydronephrosis present.. 2. Atrophic right kidney not appreciably changed since 2017 renal ultrasound. Signer Name: Brielle Luong MD Signed: 01/14/2021 10:41 AM Workstation Name: [id number]
[2021-01-14] MEDS: ASPIRIN 81 MG TAB CHEW PO SCH (10:47)
[2021-01-14] MEDS: FAMOTIDINE 10 MG TAB PO SCH ×2 (10:47→22:15)
[2021-01-14] MEDS: FENOFIBRATE 48 MG TAB PO SCH (10:47)
[2021-01-14] MEDS: hydrALAZINE 100 MG TAB PO SCH ×3 (10:47→22:15)
[2021-01-14] MEDS: DOCUSATE SODIUM 100 MG CAP PO SCH (10:47)
[2021-01-14] MEDS: amLODIPine 10 MG TAB PO SCH (10:47)
[2021-01-14 10:49] LABS: Albumin 3.9 g/dL (3.9-5); Calcium 9.6 mg/dL (8.4-10.2)
[2021-01-14] MEDS ORDERED: IPRATROPIUM/ALBUTEROL SULFATE 3 ML AMPUL.NEB IH SCH (20:00)
[2021-01-14] MEDS: PRAVASTATIN 80 MG TAB PO SCH (22:15)
[2021-01-15] MEDS: HEPARIN 5,000 UNIT/1 ML VIAL SUB-Q SCH ×3 (05:29→22:16)
[2021-01-15 06:09] LABS: Calcium 9.4 mg/dL (8.4-10.2)
--- NOTE | 2021-01-15 08:22 | Progress Note ---
Assessment and Plan (1) Acute metabolic encephalopathy (2) Hypertensive urgency (3) Acute renal failure (4) Elevated troponin (5) Acute on chronic diastolic CHF (congestive heart failure) (6) Type 2 diabetes mellitus Baseline Cr possibly ~1.5 stable CR since yesterday cont NS noted to have small amount of RBC in UA with proteinuria, likely 2/2 to DM, however, secondary GN work up with vasculitis and paraprotein ordered--ve HBC, HCV and blood smear will check renal US-unable to open report via [employer] will check urine lytes-pending renally dose meds strict I&O daily weight Kareem Epperson MD [phone] Subjective Date of service: 01/15/21 Principal diagnosis: ALLAN Interval history: no acute distress. Objective - Vital Signs Vital signs: Vital Signs - 12hr 01/14/21 01/14/21 01/15/21 20:24 20:25 00:00 Temperature Pulse Rate 73 Pulse Rate [ 68 Bilateral Throughout] Respiratory Rate Respiratory 16 Rate [Bilateral Throughout] Blood Pressure O2 Sat by Pulse 96 Oximetry 01/15/21 01/15/21 01/15/21 01:01 05:22 07:57 Temperature 98.6 F 98.8 F Pulse Rate 75 65 65 Pulse Rate [ Bilateral Throughout] Respiratory 20 20 Rate Respiratory Rate [Bilateral Throughout] Blood Pressure 130/68 146/73 O2 Sat by Pulse 97 94 100 Oximetry - General Appearance General appearance: well-developed, well-nourished EENT: ATNC, PERRL Neck: no JVD, no carotid bruit Respiratory: Present: Clear to Ascultation. Absent: Rales, Ronchi Cardiology: regular, S1S2 Gastrointestinal: normoactive bowel sounds, no tenderness, no distended, no masses Integumentary: no rash, warm and dry Neurologic: no focal deficit, no asterixis Musculoskeletal: other (no edema in BLE) Psychiatric: cooperative - Lab 01/14/21 06:14 01/15/21 05:18 Most recent lab results Calcium 9.4 mg/dL (8.4-10.2) 01/15/21 05:18 Phosphorus 2.60 mg/dL (2.5-4.5) 01/15/21 05:18 Medications & Allergies - Medications Allergies/Adverse Reactions: Allergies No Known Allergies Allergy (Verified 02/23/15 08:27) Home Medications: Home Medications Medication Instructions Recorded Confirmed Last Taken Type Aspirin [Aspirin BABY CHEW TAB] 81 mg PO QDAY 05/27/14 01/13/21 2 Days Ago History ~01/11/21 Levemir VIAL 18 units SQ QHS 10/31/16 01/13/21 2 Days Ago History ~01/11/21 hydrALAZINE [Apresoline TAB] 100 mg PO TID #90 tab 11/03/16 01/13/21 2 Days Ago Rx ~01/11/21 Carvedilol [Coreg] 12.5 mg PO BID 01/03/18 01/13/21 2 Days Ago History ~01/11/21 Docusate Sodium [Colace CAP] 100 mg PO DAILY 01/03/18 01/13/21 2 Days Ago History ~01/11/21 Fenofibrate [Tricor] 48 mg PO DAILY 01/03/18 01/13/21 2 Days Ago History ~01/11/21 Simvastatin [Zocor] 40 mg PO DAILY 01/03/18 01/13/21 2 Days Ago History ~01/11/21 Timolol 0.5% [Timoptic] 1 drop OU BID 01/03/18 01/13/21 2 Days Ago History ~01/11/21 amLODIPine [Norvasc] 10 mg PO DAILY 01/03/18 01/13/21 2 Days Ago History ~01/11/21 Active Medications: Generic Name Dose Route Start Last Admin Trade Name Freq PRN Reason Stop Dose Admin Acetaminophen 650 mg 01/13/21 00:43 Acetaminophen 325 Mg Tab PO Q4H PRN Pain MILD(1-3)/Fever >100.5/MARCANO Albuterol 2.5 mg 01/13/21 00:43 Albuterol 2.5 Mg/3 Ml Nebu IH Q4HRT PRN Shortness Of Breath Amlodipine Besylate 10 mg 01/13/21 10:00 01/14/21 10:47 Amlodipine 10 Mg Tab PO 10 mg DAILY KIP Administration Aspirin 81 mg 01/13/21 10:00 01/14/21 10:47 Aspirin 81 Mg Tab Chew PO 81 mg QDAY KIP Administration Dextrose 50 ml 01/13/21 00:48 Dextrose 50% In Water (25gm) 50 Ml Syringe IV Q30MIN PRN Hypoglycemia Protocol Docusate Sodium 100 mg 01/13/21 10:00 01/14/21 10:47 Docusate Sodium 100 Mg Cap PO 100 mg DAILY KIP Administration Famotidine 10 mg 01/13/21 10:00 01/14/21 22:15 Famotidine 10 Mg Tab PO 10 mg BID KIP Administration Fenofibrate 48 mg 01/13/21 10:00 01/14/21 10:47 Fenofibrate 48 Mg Tab PO 48 mg DAILY KIP Administration Heparin Sodium (Porcine) 5,000 unit 01/13/21 06:00 01/15/21 05:29 Heparin 5,000 Unit/1 Ml Vial SUB-Q 5,000 unit Q8HR KIP Administration Hydralazine HCl 10 mg 01/13/21 00:47 01/13/21 06:20 Hydralazine 20 Mg/1 Ml Inj IV 10 mg Q6H PRN Administration Blood Pressure Hydralazine HCl 100 mg 01/13/21 08:00 01/14/21 22:15 Hydralazine 100 Mg Tab PO 100 mg TID KIP Administration Hydromorphone HCl 0.5 mg 01/13/21 00:43 Hydromorphone 1 Mg/1 Ml Inj IV Q3H PRN Pain , Severe (7-10) Sodium Chloride 1,000 mls @ 100 mls/hr 01/14/21 09:00 Nacl 0.9% 1000 Ml IV DIRECT KIP Insulin Glargine 18 units 01/13/21 22:00 01/14/21 22:15 Insulin Glargine 100 Units/Ml SUB-Q 18 units QHS [facility] Administration Insulin Human Lispro 0 unit 01/13/21 07:30 01/14/21 22:16 Insulin Lispro 100 Unit/Ml SUB-Q 1 unit ACHS [facility] Administration Protocol Ondansetron HCl 4 mg 01/13/21 00:43 Ondansetron 4 Mg/2 Ml Inj IV Q8H PRN Nausea And Vomiting Oxycodone/Acetaminophen 1 tab 01/13/21 00:43 01/13/21 22:31 Oxycodone /Acetaminophen 5-325mg Tab PO 1 tab Q6H PRN Administration Pain, Moderate (4-6) Pravastatin Sodium 80 mg 01/13/21 22:00 01/14/21 22:15 Pravastatin 80 Mg Tab PO 80 mg QHS [facility] Administration Sodium Chloride 10 ml 01/13/21 10:00 01/14/21 10:47 Sodium Chloride 0.9% 10 Ml Flush Syringe IV 10 ml BID KIP Administration Sodium Chloride 10 ml 01/13/21 00:43 Sodium Chloride 0.9% 10 Ml Flush Syringe IV PRN PRN LINE FLUSH
[2021-01-15] MEDS: ASPIRIN 81 MG TAB CHEW PO SCH (09:40)
[2021-01-15] MEDS: FENOFIBRATE 48 MG TAB PO SCH (09:40)
[2021-01-15] MEDS: FAMOTIDINE 10 MG TAB PO SCH ×2 (09:40→22:16)
[2021-01-15] MEDS: hydrALAZINE 100 MG TAB PO SCH ×3 (09:40→22:16)
[2021-01-15] MEDS: DOCUSATE SODIUM 100 MG CAP PO SCH (09:40)
[2021-01-15] MEDS: amLODIPine 10 MG TAB PO SCH (09:40)
[2021-01-15] MEDS: INSULIN LISPRO 100 UNIT/ML SUB-Q SCH ×4 (09:45→22:15)
--- NOTE | 2021-01-15 09:54 | Progress Note ---
Assessment and Plan Assessment and plan: (1) Acute metabolic encephalopathy Current Visit: Yes Status: Acute Plan to address problem: Admit the patient to the medical telemetry. Metabolic encephalopathy is most likely secondary to an elevated troponin and renal failure. We will monitor the patient closely. We will continue home medication. Consult cardiology for evaluation. We also consult transition social worker evaluation for discharge planning and placement (2) Hypertensive urgency Current Visit: Yes Status: Acute Plan to address problem: We will put the patient on amlodipine 10 mg p.o. daily Coreg 12.5 mg p.o. twice daily, hydralazine 10 mg IV every 6 hours as needed. Hydralazine 100 mg p.o. 3 times daily. We will monitor the blood pressure closely (3) Acute renal failure Current Visit: No Status: Acute Plan to address problem: Avoid nephrotoxic drug. Renally dose medication. If needed will consult nephrology. Recheck BMP in the morning (4) Elevated troponin Current Visit: No Status: Acute Plan to address problem: Aspirin 81 mg p.o. daily. Simvastatin 40 mg p.o. daily. Fenofibrate 48 mg p.o. daily. Heparin 5000 units subcu every 8 hours. Echocardiogram. Cardiology consult (5) Acute on chronic diastolic CHF (congestive heart failure) Current Visit: No Status: Acute Plan to address problem: Stable. Monitor the patient closely. Intake output chart. Echocardiogram cardiology consult. We continue the home medication (6) Type 2 diabetes mellitus Current Visit: No Status: Acute Plan to address problem: 1800 kcal ADA diet. Humalog sliding scale low-dose coverage. Levemir 18 units subcu every nightly. Diabetic education (7) DVT prophylaxis Current Visit: Yes Status: Acute Plan to address problem: Heparin 5000 units subcu every 8 hours for DVT prophylaxis. Pepcid 20 mg p.o. twice daily for GI prophylaxis. Patient is a full code 01/14/21 Patient with hypertensive urgency and acute on chronic kidney disease. Cr 2.5 today, worse than yesterday. Nephrology following 01/15/21 Patient with hypertensive urgency and acute on chronic kidney disease. Her Cr 2.1 today is improved from yesterday. Nephrology ordered multiple labs pending History Interval history: Feels better BP improved No chest pain Hospitalist Physical - Physical exam Narrative exam: Gen: Not in acute distress, lying in bed, obese HEENT: Normocephalic, atraumatic Neck : supple, no JVD Heart:S1 and S2 reg, no murmurs, rubs or gallop Lungs: clear to auscultation bilaterally, no wheeze Abd: Soft , non tender, non distended, normal bowel sounds Ext: No edema, no clubbing, no cyanosis Neuro: Awake, alert, oriented, moves all ext - Constitutional Vitals: Temp Pulse Resp BP Pulse Ox 99.5 F 65 18 150/77 100 01/15/21 07:22 01/15/21 07:57 01/15/21 07:22 01/15/21 07:22 01/15/21 07:57 General appearance: Present: no acute distress HEART Score - HEART Score Troponin: Troponin T 0.033 ng/mL (0.00-0.029) H 01/12/21 21:02 Results - Labs CBC & Chem 7: 01/14/21 06:14 01/15/21 05:18 Labs: Laboratory Last Values WBC 3.9 K/mm3 (4.5-11.0) L 01/14/21 06:14 RBC 3.04 M/mm3 (3.65-5.03) L 01/14/21 06:14 Hgb 10.0 gm/dl (10.1-14.3) L 01/14/21 06:14 Hct 30.1 % (30.3-42.9) L D 01/14/21 06:14 MCV 99 fl (79-97) H 01/14/21 06:14 MCH 33 pg (28-32) H 01/14/21 06:14 MCHC 33 % (30-34) 01/14/21 06:14 RDW 15.6 % (13.2-15.2) H 01/14/21 06:14 Plt Count 170 K/mm3 (140-440) 01/14/21 06:14 Lymph % (Auto) 29.2 % (13.4-35.0) 01/14/21 06:14 [place] % (Auto) 10.7 % (0.0-7.3) H 01/14/21 06:14 Eos % (Auto) 4.2 % (0.0-4.3) 01/14/21 06:14 Baso % (Auto) 0.9 % (0.0-1.8) 01/14/21 06:14 Lymph # (Auto) 1.1 K/mm3 (1.2-5.4) L 01/14/21 06:14 [place] # (Auto) 0.4 K/mm3 (0.0-0.8) 01/14/21 06:14 Eos # (Auto) 0.2 K/mm3 (0.0-0.4) 01/14/21 06:14 Baso # (Auto) 0.0 K/mm3 (0.0-0.1) 01/14/21 06:14 Seg Neutrophils % 55.0 % (40.0-70.0) 01/14/21 06:14 Seg Neutrophils # 2.1 K/mm3 (1.8-7.7) 01/14/21 06:14 PT 13.9 Sec. (12.2-14.9) 01/12/21 21:02 INR 1.02 (0.87-1.13) 01/12/21 21:02 APTT 28.3 Sec. (24.2-36.6) 01/12/21 21:02 Sodium 140 mmol/L (137-145) 01/15/21 05:18 Potassium 3.9 mmol/L (3.6-5.0) 01/15/21 05:18 Chloride 105.8 mmol/L (98-107) 01/15/21 05:18 Carbon Dioxide 24 mmol/L (22-30) 01/15/21 05:18 Anion Gap 14 mmol/L 01/15/21 05:18 BUN 31 mg/dL (7-17) H 01/15/21 05:18 Creatinine 2.1 mg/dL (0.6-1.2) H 01/15/21 05:18 Estimated GFR 27 ml/min 01/15/21 05:18 BUN/Creatinine Ratio 15 % 01/15/21 05:18 Glucose 145 mg/dL (65-100) H 01/15/21 05:18 POC Glucose 148 mg/dL (70-105) H 01/15/21 07:23 Calcium 9.4 mg/dL (8.4-10.2) 01/15/21 05:18 Phosphorus 2.60 mg/dL (2.5-4.5) 01/15/21 05:18 Total Bilirubin 0.30 mg/dL (0.1-1.2) 01/14/21 09:50 Direct Bilirubin < 0.2 mg/dL (0-0.2) 01/12/21 21:02 Indirect Bilirubin 0.1 mg/dL 01/12/21 21:02 AST 18 units/L (5-40) 01/14/21 09:50 ALT 7 units/L (7-56) 01/14/21 09:50 Alkaline Phosphatase 45 units/L (35-129) 01/14/21 09:50 Total Creatine Kinase 221 units/L (30-135) H 01/14/21 09:50 Troponin T 0.033 ng/mL (0.00-0.029) H 01/12/21 21:02 Total Protein 6.1 g/dL (6.3-8.2) L 01/14/21 09:50 Albumin 3.9 g/dL (3.9-5) 01/14/21 09:50 Albumin/Globulin Ratio 1.8 % 01/14/21 09:50 Triglycerides 131 mg/dL (2-149) 01/12/21 21:02 Cholesterol 136 mg/dL (50-199) 01/12/21 21:02 LDL Cholesterol Direct 71 mg/dL (50-130) 01/12/21 21:02 HDL Cholesterol 46 mg/dL (40-59) 01/12/21 21:02 Cholesterol/HDL Ratio 2.95 % 01/12/21 21:02 TSH 2.120 mlU/mL (0.270-4.200) 01/13/21 18:32 Urine Color Yellow (Yellow) 01/13/21 00:27 Urine Turbidity Cloudy (Clear) 01/13/21 00:27 Urine pH 7.0 (5.0-7.0) 01/13/21 00:27 Ur Specific [place] 1.008 (1.003-1.030) 01/13/21 00:27 Urine Protein >500 mg/dL (Negative) 01/13/21 00:27 Urine Glucose (UA) Neg mg/dL (Negative) 01/13/21 00:27 Urine Ketones Neg mg/dL (Negative) 01/13/21 00:27 Urine Blood Sm (Negative) 01/13/21 00:27 Urine Nitrite Neg (Negative) 01/13/21 00:27 Urine Bilirubin Neg (Negative) 01/13/21 00:27 Urine Urobilinogen < 2.0 mg/dL (<2.0) 01/13/21 00:27 Ur Leukocyte Esterase Neg (Negative) 01/13/21 00:27 Urine WBC (Auto) 3.0 /HPF (0.0-6.0) 01/13/21 00:27 Urine RBC (Auto) 3.0 /HPF (0.0-6.0) 01/13/21 00:27 U Epithel Cells (Auto) 19.0 /HPF (0-13.0) H 01/13/21 00:27 Urine Bacteria (Auto) 1+ /HPF (Negative) 01/13/21 00:27 Urine Mucus Few /HPF 01/13/21 00:27 Hep Bs Antigen Non-reactive (Negative) 01/14/21 09:50 Hepatitis C Antibody Non-reactive (NonReactive) 01/14/21 09:50 Schistocytes Smear None seen 01/14/21 09:50 Peguero/IV: Voiding Method External Female Catheter Active Medications - Current Medications Current Medications: Generic Name Dose Route Start Last Admin Trade Name Freq PRN Reason Stop Dose Admin Acetaminophen 650 mg 01/13/21 00:43 Acetaminophen 325 Mg Tab PO Q4H PRN Pain MILD(1-3)/Fever >100.5/MARCANO Albuterol 2.5 mg 01/13/21 00:43 Albuterol 2.5 Mg/3 Ml Nebu IH Q4HRT PRN Shortness Of Breath Amlodipine Besylate 10 mg 01/13/21 10:00 01/15/21 09:40 Amlodipine 10 Mg Tab PO 10 mg DAILY KIP Administration Aspirin 81 mg 01/13/21 10:00 01/15/21 09:40 Aspirin 81 Mg Tab Chew PO 81 mg QDAY KIP Administration Dextrose 50 ml 01/13/21 00:48 Dextrose 50% In Water (25gm) 50 Ml Syringe IV Q30MIN PRN Hypoglycemia Protocol Docusate Sodium 100 mg 01/13/21 10:00 01/15/21 09:40 Docusate Sodium 100 Mg Cap PO 100 mg DAILY KIP Administration Famotidine 10 mg 01/13/21 10:00 01/15/21 09:40 Famotidine 10 Mg Tab PO 10 mg BID KIP Administration Fenofibrate 48 mg 01/13/21 10:00 01/15/21 09:40 Fenofibrate 48 Mg Tab PO 48 mg DAILY KIP Administration Heparin Sodium (Porcine) 5,000 unit 01/13/21 06:00 01/15/21 05:29 Heparin 5,000 Unit/1 Ml Vial SUB-Q 5,000 unit Q8HR KIP Administration Hydralazine HCl 10 mg 01/13/21 00:47 01/13/21 06:20 Hydralazine 20 Mg/1 Ml Inj IV 10 mg Q6H PRN Administration Blood Pressure Hydralazine HCl 100 mg 01/13/21 08:00 01/15/21 09:40 Hydralazine 100 Mg Tab PO 100 mg TID KIP Administration Hydromorphone HCl 0.5 mg 01/13/21 00:43 Hydromorphone 1 Mg/1 Ml Inj IV Q3H PRN Pain , Severe (7-10) Sodium Chloride 1,000 mls @ 100 mls/hr 01/14/21 09:00 Nacl 0.9% 1000 Ml IV DIRECT [facility] Insulin Glargine 18 units 01/13/21 22:00 01/14/21 22:15 Insulin Glargine 100 Units/Ml SUB-Q 18 units QHS [facility] Administration Insulin Human Lispro 0 unit 01/13/21 07:30 01/15/21 09:45 Insulin Lispro 100 Unit/Ml SUB-Q Not Given ACHS [facility] Protocol Ondansetron HCl 4 mg 01/13/21 00:43 Ondansetron 4 Mg/2 Ml Inj IV Q8H PRN Nausea And Vomiting Oxycodone/Acetaminophen 1 tab 01/13/21 00:43 01/13/21 22:31 Oxycodone /Acetaminophen 5-325mg Tab PO 1 tab Q6H PRN Administration Pain, Moderate (4-6) Pravastatin Sodium 80 mg 01/13/21 22:00 01/14/21 22:15 Pravastatin 80 Mg Tab PO 80 mg QHS [facility] Administration Sodium Chloride 10 ml 01/13/21 10:00 01/15/21 09:41 Sodium Chloride 0.9% 10 Ml Flush Syringe IV 10 ml BID KIP Administration Sodium Chloride 10 ml 01/13/21 00:43 Sodium Chloride 0.9% 10 Ml Flush Syringe IV PRN PRN LINE FLUSH Nutrition/Malnutrition Assess - Dietary Evaluation Nutrition/Malnutrition Findings: Nutrition Notes Start: 01/13/21 07:40 Freq: Status: Active Protocol: Document 01/13/21 07:40 AZRA (Rec: 01/13/21 07:41 AZRA [id number]) Nutrition Notes Need for Assessment generated from: MD Order Initial or Follow up Brief Note Subjective/Other Information MD consult for diet education. Due to advanced age and dementia, pt not appropriate for diet education. Nutrition Intervention Revisit per MD consult or patient Sign Off request:
[2021-01-15 11:47] LABS: Albumin 3.8 g/dL (3.9-5); Calcium 9.7 mg/dL (8.4-10.2)
--- NOTE | 2021-01-15 12:35 | Progress Note ---
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 Objective Vital Signs Temp Pulse Pulse Resp Resp BP Pulse Ox 01/15/21 07:57 65 100 01/15/21 07:22 99.5 F 68 18 150/77 99 01/15/21 05:22 98.8 F 65 20 146/73 94 01/15/21 01:01 98.6 F 75 20 130/68 97 01/15/21 00:00 73 01/14/21 20:25 96 01/14/21 20:24 68 16 01/14/21 20:00 97 01/14/21 19:54 32.1 F L 60 20 147/69 100 01/14/21 16:10 67 01/14/21 16:04 98.3 F 58 L 20 140/63 95 01/14/21 12:47 98.3 F 65 20 141/67 99 - Physical Examination HEENT: Positive: PERRL Neck: Positive: neck supple Cardiac: Positive: Reg Rate and Rhythm Lungs: Positive: clear to auscultation Neuro: Positive: Grossly Intact, Weakness Abdomen: Positive: Soft, Active Bowel Sounds Skin: Positive: Clear Extremities: Absent: edema - Labs and Meds Cardiac Enzymes 01/15/21 Range/Units 10:42 AST 15 (5-40) units/L Comprehensive Metabolic Panel 01/15/21 01/15/21 Range/Units 05:18 10:42 Sodium 140 142 (137-145) mmol/L Potassium 3.9 4.0 (3.6-5.0) mmol/L Chloride 105.8 107.0 (98-107) mmol/L Carbon Dioxide 24 24 (22-30) mmol/L BUN 31 H 30 H (7-17) mg/dL Creatinine 2.1 H 2.1 H (0.6-1.2) mg/dL Glucose 145 H 131 H (65-100) mg/dL Calcium 9.4 9.7 (8.4-10.2) mg/dL AST 15 (5-40) units/L ALT 6 L (7-56) units/L Alkaline Phosphatase 40 (35-129) units/L Total Protein 6.0 L (6.3-8.2) g/dL Albumin 3.8 L (3.9-5) g/dL
[2021-01-15] MEDS: INSULIN GLARGINE 100 UNITS/ML SUB-Q SCH (22:15)
[2021-01-15] MEDS: PRAVASTATIN 80 MG TAB PO SCH (22:16)
[2021-01-16] MEDS: oxyCODONE /ACETAMINOPHEN 5-325MG TAB PO PRN (00:15)
[2021-01-16] MEDS: HEPARIN 5,000 UNIT/1 ML VIAL SUB-Q SCH ×3 (05:18→21:55)
[2021-01-16] MEDS: INSULIN LISPRO 100 UNIT/ML SUB-Q SCH ×4 (08:30→22:00)
[2021-01-16 10:19] LABS: Albumin 3.7 g/dL (3.9-5); Calcium 9.7 mg/dL (8.4-10.2)
[2021-01-16] MEDS: hydrALAZINE 100 MG TAB PO SCH ×3 (10:20→21:55)
[2021-01-16] MEDS: amLODIPine 10 MG TAB PO SCH (10:20)
[2021-01-16] MEDS: FAMOTIDINE 10 MG TAB PO SCH ×2 (10:20→21:55)
[2021-01-16] MEDS: FENOFIBRATE 48 MG TAB PO SCH (10:20)
[2021-01-16] MEDS: ASPIRIN 81 MG TAB CHEW PO SCH (10:20)
[2021-01-16] MEDS: DOCUSATE SODIUM 100 MG CAP PO SCH (10:20)
--- NOTE | 2021-01-16 10:56 | Progress Note ---
Assessment and Plan (1) Acute metabolic encephalopathy (2) Hypertensive urgency (3) Acute renal failure (4) Elevated troponin (5) Acute on chronic diastolic CHF (congestive heart failure) (6) Type 2 diabetes mellitus Baseline Cr possibly ~1.5 stable kideny function can be discharged from renal standpoint, to be followed as an outpatietn with [facility] withinin 1-2 weeks renally dose meds strict I&O daily weight Kareem Epperson MD [phone] Subjective Date of service: 01/16/21 Principal diagnosis: ALLAN Interval history: no acute distress. Objective - Vital Signs Vital signs: Vital Signs - 12hr 01/16/21 00:00 Pulse Rate 79 - Lab 01/14/21 06:14 01/16/21 09:24 Most recent lab results Calcium 9.7 mg/dL (8.4-10.2) 01/16/21 09:24 Phosphorus 2.60 mg/dL (2.5-4.5) 01/15/21 05:18 Medications & Allergies - Medications Allergies/Adverse Reactions: Allergies No Known Allergies Allergy (Verified 02/23/15 08:27) Home Medications: Home Medications Medication Instructions Recorded Confirmed Last Taken Type Aspirin [Aspirin BABY CHEW TAB] 81 mg PO QDAY 05/27/14 01/13/21 2 Days Ago History ~01/11/21 Levemir VIAL 18 units SQ QHS 10/31/16 01/13/21 2 Days Ago History ~01/11/21 hydrALAZINE [Apresoline TAB] 100 mg PO TID #90 tab 11/03/16 01/13/21 2 Days Ago Rx ~01/11/21 Carvedilol [Coreg] 12.5 mg PO BID 01/03/18 01/13/21 2 Days Ago History ~01/11/21 Docusate Sodium [Colace CAP] 100 mg PO DAILY 01/03/18 01/13/21 2 Days Ago History ~01/11/21 Fenofibrate [Tricor] 48 mg PO DAILY 01/03/18 01/13/21 2 Days Ago History ~01/11/21 Simvastatin [Zocor] 40 mg PO DAILY 01/03/18 01/13/21 2 Days Ago History ~01/11/21 Timolol 0.5% [Timoptic] 1 drop OU BID 01/03/18 01/13/21 2 Days Ago History ~01/11/21 amLODIPine [Norvasc] 10 mg PO DAILY 01/03/18 01/13/21 2 Days Ago History ~01/11/21 Active Medications: Generic Name Dose Route Start Last Admin Trade Name Freq PRN Reason Stop Dose Admin Acetaminophen 650 mg 01/13/21 00:43 Acetaminophen 325 Mg Tab PO Q4H PRN Pain MILD(1-3)/Fever >100.5/MARCANO Albuterol 2.5 mg 01/13/21 00:43 Albuterol 2.5 Mg/3 Ml Nebu IH Q4HRT PRN Shortness Of Breath Amlodipine Besylate 10 mg 01/13/21 10:00 01/16/21 10:20 Amlodipine 10 Mg Tab PO 10 mg DAILY KIP Administration Aspirin 81 mg 01/13/21 10:00 01/16/21 10:20 Aspirin 81 Mg Tab Chew PO 81 mg QDAY [facility] Administration Dextrose 50 ml 01/13/21 00:48 Dextrose 50% In Water (25gm) 50 Ml Syringe IV Q30MIN PRN Hypoglycemia Protocol Docusate Sodium 100 mg 01/13/21 10:00 01/16/21 10:20 Docusate Sodium 100 Mg Cap PO 100 mg DAILY KIP Administration Famotidine 10 mg 01/13/21 10:00 01/16/21 10:20 Famotidine 10 Mg Tab PO 10 mg BID KIP Administration Fenofibrate 48 mg 01/13/21 10:00 01/16/21 10:20 Fenofibrate 48 Mg Tab PO 48 mg DAILY KIP Administration Heparin Sodium (Porcine) 5,000 unit 01/13/21 06:00 01/16/21 05:18 Heparin 5,000 Unit/1 Ml Vial SUB-Q 5,000 unit Q8HR [facility]IP Administration Hydralazine HCl 10 mg 01/13/21 00:47 01/13/21 06:20 Hydralazine 20 Mg/1 Ml Inj IV 10 mg Q6H PRN Administration Blood Pressure Hydralazine HCl 100 mg 01/13/21 08:00 01/16/21 10:20 Hydralazine 100 Mg Tab PO 100 mg TID [facility]IP Administration Hydromorphone HCl 0.5 mg 01/13/21 00:43 Hydromorphone 1 Mg/1 Ml Inj IV Q3H PRN Pain , Severe (7-10) Sodium Chloride 1,000 mls @ 100 mls/hr 01/14/21 09:00 Nacl 0.9% 1000 Ml IV DIRECT [facility] Insulin Glargine 18 units 01/13/21 22:00 01/15/21 22:15 Insulin Glargine 100 Units/Ml SUB-Q 18 units QHS [facility] Administration Insulin Human Lispro 0 unit 01/13/21 07:30 01/16/21 08:30 Insulin Lispro 100 Unit/Ml SUB-Q Not Given [facility] Protocol Ondansetron HCl 4 mg 01/13/21 00:43 Ondansetron 4 Mg/2 Ml Inj IV Q8H PRN Nausea And Vomiting Oxycodone/Acetaminophen 1 tab 01/13/21 00:43 01/16/21 00:15 Oxycodone /Acetaminophen 5-325mg Tab PO 1 tab Q6H PRN Administration Pain, Moderate (4-6) Pravastatin Sodium 80 mg 01/13/21 22:00 01/15/21 22:16 Pravastatin 80 Mg Tab PO 80 mg QHS [facility] Administration Sodium Chloride 10 ml 01/13/21 10:00 01/16/21 10:20 Sodium Chloride 0.9% 10 Ml Flush Syringe IV 10 ml BID [facility] Administration Sodium Chloride 10 ml 01/13/21 00:43 Sodium Chloride 0.9% 10 Ml Flush Syringe IV PRN PRN LINE FLUSH
--- NOTE | 2021-01-16 12:33 | Progress Note ---
Assessment and Plan - Patient Problems (1) Bradycardia Current Visit: Yes Status: Acute Plan to address problem: We will continue medical therapy without beta-blockers. As outpatient, she will follow-up with electrophysiology and further determination will be made with regards to pacemaker implant to allow resumption of optimal beta-henry therapy for her chronic systolic left ventricular failure. (2) Chronic left ventricular systolic heart failure Current Visit: Yes Status: Acute Plan to address problem: Continue goal-directed medical therapy for chronic systolic left ventricular failure, except the use of beta-blockers or AV jose blockers in response to the presenting sinus bradycardia. (3) Elevated troponin Current Visit: Yes Status: Acute Subjective Date of service: 01/16/21 Principal diagnosis: ALLAN Interval history: Patient is comfortable, no cardiac complaints. Her current heart rate ranges 72- 79. Objective Vital Signs Temp Pulse Resp BP BP Pulse Ox 01/16/21 08:00 61 01/16/21 07:00 100 01/16/21 00:00 79 01/15/21 20:53 98.4 F 72 20 136/76 99 01/15/21 19:00 99 01/15/21 16:38 86 01/15/21 16:21 86 18 138/65 97 - Physical Examination General: No Apparent Distress HEENT: Positive: PERRL Neck: Positive: neck supple Cardiac: Positive: Reg Rate and Rhythm Lungs: Positive: clear to auscultation Neuro: Positive: Grossly Intact, Weakness Abdomen: Positive: Soft, Active Bowel Sounds Skin: Positive: Clear Extremities: Absent: edema - Labs and Meds Cardiac Enzymes 01/16/21 Range/Units 09:24 AST 25 (5-40) units/L Comprehensive Metabolic Panel 01/16/21 01/16/21 Range/Units 04:24 09:24 Sodium 139 141 (137-145) mmol/L Potassium 3.9 4.1 (3.6-5.0) mmol/L Chloride 106.1 106.7 (98-107) mmol/L Carbon Dioxide 22 25 (22-30) mmol/L BUN 28 H 27 H (7-17) mg/dL Creatinine 2.4 H 2.3 H (0.6-1.2) mg/dL Glucose 60 L 88 (65-100) mg/dL Calcium 9.0 9.7 (8.4-10.2) mg/dL AST 25 (5-40) units/L ALT 9 (7-56) units/L Alkaline Phosphatase 39 (35-129) units/L Total Protein 6.0 L (6.3-8.2) g/dL Albumin 3.7 L (3.9-5) g/dL
[2021-01-16] MEDS: INSULIN GLARGINE 100 UNITS/ML SUB-Q SCH (21:55)
[2021-01-16] MEDS: PRAVASTATIN 80 MG TAB PO SCH (21:55)
[2021-01-17 06:23] LABS: Calcium 9.8 mg/dL (8.4-10.2)
[2021-01-17] MEDS: HEPARIN 5,000 UNIT/1 ML VIAL SUB-Q SCH (07:12)
--- NOTE | 2021-01-17 07:56 | Progress Note ---
Assessment and Plan (1) Acute metabolic encephalopathy (2) Hypertensive urgency (3) Acute renal failure (4) Elevated troponin (5) Acute on chronic diastolic CHF (congestive heart failure) (6) Type 2 diabetes mellitus Baseline Cr possibly ~1.5 Cr cont to be stable, possible new baseline can be discharged from renal standpoint, to be followed as an outpatient with labs within 1-2 weeks renally dose meds strict I&O daily weight Kareem Epperson MD [phone] Subjective Date of service: 01/17/21 Principal diagnosis: ALLAN Interval history: no overnight events Objective - Vital Signs Vital signs: Vital Signs - 12hr 01/16/21 01/16/21 01/16/21 20:03 21:00 22:00 Temperature 98.4 F Pulse Rate 64 75 Pulse Rate [ 79 Bilateral Throughout] Respiratory 18 18 Rate Respiratory 18 Rate [Bilateral Throughout] Blood Pressure 142/74 O2 Sat by Pulse 96 100 Oximetry 01/16/21 01/17/21 01/17/21 23:22 03:59 07:43 Temperature 98.0 F 98.2 F 98.0 F Pulse Rate 67 65 61 Pulse Rate [ Bilateral Throughout] Respiratory 16 16 18 Rate Respiratory Rate [Bilateral Throughout] Blood Pressure 141/74 140/67 126/77 O2 Sat by Pulse 97 99 99 Oximetry - General Appearance General appearance: well-developed, well-nourished EENT: ATNC, PERRL, mucous membranes moist Neck: no JVD, no carotid bruit Respiratory: Present: Clear to Ascultation. Absent: Rales, Ronchi Cardiology: regular, S1S2 Gastrointestinal: normoactive bowel sounds, no tenderness, no distended, no masses Integumentary: no rash, warm and dry Neurologic: no focal deficit, no asterixis, alert and oriented x3 Psychiatric: cooperative - Lab 01/14/21 06:14 01/17/21 09:50 Most recent lab results Calcium 9.8 mg/dL (8.4-10.2) 01/17/21 05:22 Phosphorus 2.80 mg/dL (2.5-4.5) 01/17/21 05:22 Medications & Allergies - Medications Allergies/Adverse Reactions: Allergies No Known Allergies Allergy (Verified 02/23/15 08:27) Home Medications: Home Medications Medication Instructions Recorded Confirmed Last Taken Type Aspirin [Aspirin BABY CHEW TAB] 81 mg PO QDAY 12/11/14 07/30/21 2 Days Ago History ~01/11/21 Levemir VIAL 18 units SQ QHS 10/31/16 01/13/21 2 Days Ago History ~01/11/21 hydrALAZINE [Apresoline TAB] 100 mg PO TID #90 tab 11/03/16 01/13/21 2 Days Ago Rx ~01/11/21 Carvedilol [Coreg] 12.5 mg PO BID 01/03/18 01/13/21 2 Days Ago History ~01/11/21 Docusate Sodium [Colace CAP] 100 mg PO DAILY 01/03/18 01/13/21 2 Days Ago History ~01/11/21 Fenofibrate [Tricor] 48 mg PO DAILY 01/03/18 01/13/21 2 Days Ago History ~01/11/21 Simvastatin [Zocor] 40 mg PO DAILY 01/03/18 01/13/21 2 Days Ago History ~01/11/21 Timolol 0.5% [Timoptic] 1 drop OU BID 01/03/18 01/13/21 2 Days Ago History ~01/11/21 amLODIPine [Norvasc] 10 mg PO DAILY 01/03/18 01/13/21 2 Days Ago History ~01/11/21 Active Medications: Generic Name Dose Route Start Last Admin Trade Name Freq PRN Reason Stop Dose Admin Acetaminophen 650 mg 01/13/21 00:43 Acetaminophen 325 Mg Tab PO Q4H PRN Pain MILD(1-3)/Fever >100.5/MARCANO Albuterol 2.5 mg 01/13/21 00:43 Albuterol 2.5 Mg/3 Ml Nebu IH Q4HRT PRN Shortness Of Breath Amlodipine Besylate 10 mg 01/13/21 10:00 01/16/21 10:20 Amlodipine 10 Mg Tab PO 10 mg DAILY KIP Administration Aspirin 81 mg 01/13/21 10:00 01/16/21 10:20 Aspirin 81 Mg Tab Chew PO 81 mg QDAY KIP Administration Dextrose 50 ml 01/13/21 00:48 Dextrose 50% In Water (25gm) 50 Ml Syringe IV Q30MIN PRN Hypoglycemia Protocol Docusate Sodium 100 mg 01/13/21 10:00 01/16/21 10:20 Docusate Sodium 100 Mg Cap PO 100 mg DAILY [facility] Administration Famotidine 10 mg 01/13/21 10:00 01/16/21 21:55 Famotidine 10 Mg Tab PO 10 mg BID [facility] Administration Fenofibrate 48 mg 01/13/21 10:00 01/16/21 10:20 Fenofibrate 48 Mg Tab PO 48 mg DAILY [facility] Administration Heparin Sodium (Porcine) 5,000 unit 01/13/21 06:00 01/17/21 07:12 Heparin 5,000 Unit/1 Ml Vial SUB-Q Not Given Q8HR [facility] Hydralazine HCl 10 mg 01/13/21 00:47 01/13/21 06:20 Hydralazine 20 Mg/1 Ml Inj IV 10 mg Q6H PRN Administration Blood Pressure Hydralazine HCl 100 mg 01/13/21 08:00 01/16/21 21:55 Hydralazine 100 Mg Tab PO 100 mg TID [facility] Administration Hydromorphone HCl 0.5 mg 01/13/21 00:43 Hydromorphone 1 Mg/1 Ml Inj IV Q3H PRN Pain , Severe (7-10) Sodium Chloride 1,000 mls @ 100 mls/hr 01/14/21 09:00 Nacl 0.9% 1000 Ml IV DIRECT [facility] Insulin Glargine 18 units 01/13/21 22:00 01/16/21 21:55 Insulin Glargine 100 Units/Ml SUB-Q 18 units QHS [facility] Administration Insulin Human Lispro 0 unit 01/13/21 07:30 01/16/21 22:00 Insulin Lispro 100 Unit/Ml SUB-Q Not Given ACHS [facility] Protocol Ondansetron HCl 4 mg 01/13/21 00:43 Ondansetron 4 Mg/2 Ml Inj IV Q8H PRN Nausea And Vomiting Oxycodone/Acetaminophen 1 tab 01/13/21 00:43 01/16/21 00:15 Oxycodone /Acetaminophen 5-325mg Tab PO 1 tab Q6H PRN Administration Pain, Moderate (4-6) Pravastatin Sodium 80 mg 01/13/21 22:00 01/16/21 21:55 Pravastatin 80 Mg Tab PO 80 mg QHS [facility] Administration Sodium Chloride 10 ml 01/13/21 10:00 01/16/21 21:56 Sodium Chloride 0.9% 10 Ml Flush Syringe IV 10 ml BID KIP Administration Sodium Chloride 10 ml 01/13/21 00:43 Sodium Chloride 0.9% 10 Ml Flush Syringe IV PRN PRN LINE FLUSH
[2021-01-17] MEDS: INSULIN LISPRO 100 UNIT/ML SUB-Q SCH ×2 (08:19→12:19)
[2021-01-17] MEDS: hydrALAZINE 100 MG TAB PO SCH ×2 (08:19→15:07)
--- NOTE | 2021-01-17 08:59 | Progress Note ---
Assessment and Plan Altered mental status associated with hypoglycemia Mild-Moderate Sinus bradycardia on presentation with underlying LBBB Carvedilol discontinued normal TSH Non ischemic cardiomyopathy LVEF 35-40% by echo this admission Nonspecific troponin elevation in setting of CKD Htn DM CKD Left BKA Recommendations: Continue goal-directed medical therapy for chronic systolic left ventricular failure, except the use of beta-blockers or AV jose blockers in response to the presenting sinus bradycardia. As outpatient, she will follow-up with electrophysiology and further determination will be made with regards to pacemaker implant to allow resumption of optimal beta-henry therapy for her chronic systolic left ventricular failure. Subjective Date of service: 01/17/21 Principal diagnosis: ALLAN Interval history: Patient has no cardiac complaints. Wants to go home. Currently, she is stable sinus rhythm, heart rate 65, on telemetry. Objective Vital Signs Temp Pulse Pulse Resp Resp BP Pulse Ox 01/17/21 08:36 61 100 01/17/21 07:43 98.0 F 61 18 126/77 99 01/17/21 03:59 98.2 F 65 16 140/67 99 01/16/21 23:22 98.0 F 67 16 141/74 97 01/16/21 22:00 75 18 100 01/16/21 21:00 79 18 01/16/21 20:03 98.4 F 64 18 142/74 96 01/16/21 10:18 62 16 154/78 97 - Physical Examination General: No Apparent Distress HEENT: Positive: PERRL Neck: Positive: neck supple Cardiac: Positive: Reg Rate and Rhythm Lungs: Positive: Decreased Breath Sounds Neuro: Positive: Weakness Skin: Positive: Clear Extremities: Present: Other (left AKA) - Labs and Meds Cardiac Enzymes 01/16/21 Range/Units 09:24 AST 25 (5-40) units/L Comprehensive Metabolic Panel 01/16/21 01/17/21 Range/Units 09:24 05:22 Sodium 141 144 (137-145) mmol/L Potassium 4.1 4.0 (3.6-5.0) mmol/L Chloride 106.7 107.9 H (98-107) mmol/L Carbon Dioxide 25 24 (22-30) mmol/L BUN 27 H 26 H (7-17) mg/dL Creatinine 2.3 H 2.3 H (0.6-1.2) mg/dL Glucose 88 82 (65-100) mg/dL Calcium 9.7 9.8 (8.4-10.2) mg/dL AST 25 (5-40) units/L ALT 9 (7-56) units/L Alkaline Phosphatase 39 (35-129) units/L Total Protein 6.0 L (6.3-8.2) g/dL Albumin 3.7 L (3.9-5) g/dL
--- NOTE | 2021-01-17 10:07 | Progress Note ---
Assessment and Plan Assessment and plan: (1) Acute metabolic encephalopathy Current Visit: Yes Status: Acute Plan to address problem: Admit the patient to the medical telemetry. Metabolic encephalopathy is most likely secondary to an elevated troponin and renal failure. We will monitor the patient closely. We will continue home medication. Consult cardiology for evaluation. We also consult licensed master social worker evaluation for discharge planning and placement (2) Hypertensive urgency Current Visit: Yes Status: Acute Plan to address problem: We will put the patient on amlodipine 10 mg p.o. daily Coreg 12.5 mg p.o. twice daily, hydralazine 10 mg IV every 6 hours as needed. Hydralazine 100 mg p.o. 3 times daily. We will monitor the blood pressure closely (3) Acute renal failure Current Visit: No Status: Acute Plan to address problem: Avoid nephrotoxic drug. Renally dose medication. If needed will consult nephrology. Recheck BMP in the morning (4) Elevated troponin Current Visit: No Status: Acute Plan to address problem: Aspirin 81 mg p.o. daily. Simvastatin 40 mg p.o. daily. Fenofibrate 48 mg p.o. daily. Heparin 5000 units subcu every 8 hours. Echocardiogram. Cardiology consult (5) Acute on chronic diastolic CHF (congestive heart failure) Current Visit: No Status: Acute Plan to address problem: Stable. Monitor the patient closely. Intake output chart. Echocardiogram cardiology consult. We continue the home medication (6) Type 2 diabetes mellitus Current Visit: No Status: Acute Plan to address problem: 1800 kcal ADA diet. Humalog sliding scale low-dose coverage. Levemir 18 units subcu every nightly. Diabetic education (7) DVT prophylaxis Current Visit: Yes Status: Acute Plan to address problem: Heparin 5000 units subcu every 8 hours for DVT prophylaxis. Pepcid 20 mg p.o. twice daily for GI prophylaxis. Patient is a full code 01/14/21 Patient with hypertensive urgency and acute on chronic kidney disease. Cr 2.5 today, worse than yesterday. Nephrology following 01/15/21 Patient with hypertensive urgency and acute on chronic kidney disease. Her Cr 2.1 today is improved from yesterday. Nephrology ordered multiple labs pending 01/16/21 Patient with hypertensive urgency and acute on chronic kidney disease. Her Cr 2.4 today is still elevated. BP stable. She had metabolic encephalopathy on admission, now resolved. Nephrology ordered multiple labs, still pending. Discharge as per Nephrology History Interval history: Feels better BP improved No chest pain Hospitalist Physical - Physical exam Narrative exam: Gen: Not in acute distress, lying in bed, obese HEENT: Normocephalic, atraumatic Neck : supple, no JVD Heart:S1 and S2 reg, no murmurs, rubs or gallop Lungs: clear to auscultation bilaterally, no wheeze Abd: Soft , non tender, non distended, normal bowel sounds Ext: No edema, no clubbing, no cyanosis Neuro: Awake, alert, oriented, moves all ext - Constitutional Vitals: Temp Pulse Resp BP Pulse Ox 98.0 F 61 18 126/77 100 01/17/21 07:43 01/17/21 08:36 01/17/21 07:43 01/17/21 07:43 01/17/21 08:36 General appearance: Present: no acute distress HEART Score - HEART Score Troponin: Troponin T 0.033 ng/mL (0.00-0.029) H 01/12/21 21:02 Results - Labs CBC & Chem 7: 01/14/21 06:14 01/17/21 05:22 Labs: Laboratory Last Values WBC 3.9 K/mm3 (4.5-11.0) L 01/14/21 06:14 RBC 3.04 M/mm3 (3.65-5.03) L 01/14/21 06:14 Hgb 10.0 gm/dl (10.1-14.3) L 01/14/21 06:14 Hct 30.1 % (30.3-42.9) L D 01/14/21 06:14 MCV 99 fl (79-97) H 01/14/21 06:14 MCH 33 pg (28-32) H 01/14/21 06:14 MCHC 33 % (30-34) 01/14/21 06:14 RDW 15.6 % (13.2-15.2) H 01/14/21 06:14 Plt Count 170 K/mm3 (140-440) 01/14/21 06:14 Lymph % (Auto) 29.2 % (13.4-35.0) 01/14/21 06:14 Oliver % (Auto) 10.7 % (0.0-7.3) H 01/14/21 06:14 Eos % (Auto) 4.2 % (0.0-4.3) 01/14/21 06:14 Baso % (Auto) 0.9 % (0.0-1.8) 01/14/21 06:14 Lymph # (Auto) 1.1 K/mm3 (1.2-5.4) L 01/14/21 06:14 Oliver # (Auto) 0.4 K/mm3 (0.0-0.8) 01/14/21 06:14 Eos # (Auto) 0.2 K/mm3 (0.0-0.4) 01/14/21 06:14 Baso # (Auto) 0.0 K/mm3 (0.0-0.1) 01/14/21 06:14 Seg Neutrophils % 55.0 % (40.0-70.0) 01/14/21 06:14 Seg Neutrophils # 2.1 K/mm3 (1.8-7.7) 01/14/21 06:14 PT 13.9 Sec. (12.2-14.9) 01/12/21 21:02 INR 1.02 (0.87-1.13) 01/12/21 21:02 APTT 28.3 Sec. (24.2-36.6) 01/12/21 21:02 Sodium 144 mmol/L (137-145) 01/17/21 05:22 Potassium 4.0 mmol/L (3.6-5.0) 01/17/21 05:22 Chloride 107.9 mmol/L (98-107) H 01/17/21 05:22 Carbon Dioxide 24 mmol/L (22-30) 01/17/21 05:22 Anion Gap 16 mmol/L 01/17/21 05:22 BUN 26 mg/dL (7-17) H 01/17/21 05:22 Creatinine 2.3 mg/dL (0.6-1.2) H 01/17/21 05:22 Estimated GFR 24 ml/min 01/17/21 05:22 BUN/Creatinine Ratio 11 % 01/17/21 05:22 Glucose 82 mg/dL (65-100) 01/17/21 05:22 POC Glucose 69 mg/dL (70-105) L 01/17/21 07:42 Calcium 9.8 mg/dL (8.4-10.2) 01/17/21 05:22 Phosphorus 2.80 mg/dL (2.5-4.5) 01/17/21 05:22 Total Bilirubin 0.40 mg/dL (0.1-1.2) 01/16/21 09:24 Direct Bilirubin < 0.2 mg/dL (0-0.2) 01/12/21 21:02 Indirect Bilirubin 0.1 mg/dL 01/12/21 21:02 AST 25 units/L (5-40) 01/16/21 09:24 ALT 9 units/L (7-56) 01/16/21 09:24 Alkaline Phosphatase 39 units/L (35-129) 01/16/21 09:24 Total Creatine Kinase 221 units/L (30-135) H 01/14/21 09:50 Troponin T 0.033 ng/mL (0.00-0.029) H 01/12/21 21:02 Total Protein 6.0 g/dL (6.3-8.2) L 01/16/21 09:24 Albumin 3.7 g/dL (3.9-5) L 01/16/21 09:24 Albumin/Globulin Ratio 1.6 % 01/16/21 09:24 Triglycerides 131 mg/dL (2-149) 01/12/21 21:02 Cholesterol 136 mg/dL (50-199) 01/12/21 21:02 LDL Cholesterol Direct 71 mg/dL (50-130) 01/12/21 21:02 HDL Cholesterol 46 mg/dL (40-59) 01/12/21 21:02 Cholesterol/HDL Ratio 2.95 % 01/12/21 21:02 TSH 2.120 mlU/mL (0.270-4.200) 01/13/21 18:32 Urine Color Yellow (Yellow) 01/13/21 00:27 Urine Turbidity Cloudy (Clear) 01/13/21 00:27 Urine pH 7.0 (5.0-7.0) 01/13/21 00:27 Ur Specific Center [place] 1.008 (1.003-1.030) 01/13/21 00:27 Urine Protein >500 mg/dL (Negative) 01/13/21 00:27 Urine Glucose (UA) Neg mg/dL (Negative) 01/13/21 00:27 Urine Ketones Neg mg/dL (Negative) 01/13/21 00:27 Urine Blood Sm (Negative) 01/13/21 00:27 Urine Nitrite Neg (Negative) 01/13/21 00:27 Urine Bilirubin Neg (Negative) 01/13/21 00:27 Urine Urobilinogen < 2.0 mg/dL (<2.0) 01/13/21 00:27 Ur Leukocyte Esterase Neg (Negative) 01/13/21 00:27 Urine WBC (Auto) 3.0 /HPF (0.0-6.0) 01/13/21 00:27 Urine RBC (Auto) 3.0 /HPF (0.0-6.0) 01/13/21 00:27 U Epithel Cells (Auto) 19.0 /HPF (0-13.0) H 01/13/21 00:27 Urine Bacteria (Auto) 1+ /HPF (Negative) 01/13/21 00:27 Urine Mucus Few /HPF 01/13/21 00:27 Hep Bs Antigen Non-reactive (Negative) 01/14/21 09:50 Hepatitis C Antibody Non-reactive (NonReactive) 01/14/21 09:50 Schistocytes Smear None seen 01/14/21 09:50 Peguero/IV: Voiding Method Toilet Active Medications - Current Medications Current Medications: Generic Name Dose Route Start Last Admin Trade Name Freq PRN Reason Stop Dose Admin Acetaminophen 650 mg 01/13/21 00:43 Acetaminophen 325 Mg Tab PO Q4H PRN Pain MILD(1-3)/Fever >100.5/MARCANO Albuterol 2.5 mg 01/13/21 00:43 Albuterol 2.5 Mg/3 Ml Nebu IH Q4HRT PRN Shortness Of Breath Amlodipine Besylate 10 mg 01/13/21 10:00 01/16/21 10:20 Amlodipine 10 Mg Tab PO 10 mg DAILY KIP Administration Aspirin 81 mg 01/13/21 10:00 01/16/21 10:20 Aspirin 81 Mg Tab Chew PO 81 mg QDAY IKP Administration Dextrose 50 ml 01/13/21 00:48 Dextrose 50% In Water (25gm) 50 Ml Syringe IV Q30MIN PRN Hypoglycemia Protocol Docusate Sodium 100 mg 01/13/21 10:00 01/16/21 10:20 Docusate Sodium 100 Mg Cap PO 100 mg DAILY [facility] Administration Famotidine 10 mg 01/13/21 10:00 01/16/21 21:55 Famotidine 10 Mg Tab PO 10 mg BID [facility] Administration Fenofibrate 48 mg 01/13/21 10:00 01/16/21 10:20 Fenofibrate 48 Mg Tab PO 48 mg DAILY [facility] Administration Heparin Sodium (Porcine) 5,000 unit 01/13/21 06:00 01/17/21 07:12 Heparin 5,000 Unit/1 Ml Vial SUB-Q Not Given Q8HR [facility] Hydralazine HCl 10 mg 01/13/21 00:47 01/13/21 06:20 Hydralazine 20 Mg/1 Ml Inj IV 10 mg Q6H PRN Administration Blood Pressure Hydralazine HCl 100 mg 01/13/21 08:00 01/16/21 21:55 Hydralazine 100 Mg Tab PO 100 mg TID [facility] Administration Hydromorphone HCl 0.5 mg 01/13/21 00:43 Hydromorphone 1 Mg/1 Ml Inj IV Q3H PRN Pain , Severe (7-10) Sodium Chloride 1,000 mls @ 100 mls/hr 01/14/21 09:00 Nacl 0.9% 1000 Ml IV DIRECT [facility] Insulin Glargine 18 units 01/13/21 22:00 01/16/21 21:55 Insulin Glargine 100 Units/Ml SUB-Q 18 units QHS [facility] Administration Insulin Human Lispro 0 unit 01/13/21 07:30 01/16/21 22:00 Insulin Lispro 100 Unit/Ml SUB-Q Not Given ACHS [facility] Protocol Ondansetron HCl 4 mg 01/13/21 00:43 Ondansetron 4 Mg/2 Ml Inj IV Q8H PRN Nausea And Vomiting Oxycodone/Acetaminophen 1 tab 01/13/21 00:43 01/16/21 00:15 Oxycodone /Acetaminophen 5-325mg Tab PO 1 tab Q6H PRN Administration Pain, Moderate (4-6) Pravastatin Sodium 80 mg 01/13/21 22:00 01/16/21 21:55 Pravastatin 80 Mg Tab PO 80 mg QHS [facility] Administration Sodium Chloride 10 ml 01/13/21 10:00 01/16/21 21:56 Sodium Chloride 0.9% 10 Ml Flush Syringe IV 10 ml BID KIP Administration Sodium Chloride 10 ml 01/13/21 00:43 Sodium Chloride 0.9% 10 Ml Flush Syringe IV PRN PRN LINE FLUSH Nutrition/Malnutrition Assess - Dietary Evaluation Nutrition/Malnutrition Findings: Nutrition Notes Start: 01/13/21 07:40 Freq: Status: Active Protocol: Document 01/13/21 07:40 (Rec: 01/13/21 07:41 [email or web address]) Nutrition Notes Need for Assessment generated from: MD Order Initial or Follow up Brief Note Subjective/Other Information MD consult for diet education. Due to advanced age and dementia, pt not appropriate for diet education. Nutrition Intervention Revisit per MD consult or patient Sign Off request:
[2021-01-17 10:45] LABS: Albumin 3.7 g/dL (3.9-5); Calcium 9.8 mg/dL (8.4-10.2)
[2021-01-17] MEDS: FAMOTIDINE 10 MG TAB PO SCH (10:58)
[2021-01-17] MEDS: DOCUSATE SODIUM 100 MG CAP PO SCH (10:58)
[2021-01-17] MEDS: amLODIPine 10 MG TAB PO SCH (10:58)
[2021-01-17] MEDS: ASPIRIN 81 MG TAB CHEW PO SCH (10:58)
[2021-01-17] MEDS: FENOFIBRATE 48 MG TAB PO SCH (10:58)
[2021-01-17 12:27] VITALS: BP 149/75
--- NOTE | 2021-01-17 13:59 | Discharge Summary ---
Providers - Providers Date of Admission: 01/13/21 14:23 Date of discharge: 01/17/21 Attending physician: LA CERON 01/13/21 Consult to Case Management [CONS] Routine Services Needed at Discharge: Disulfurizer Tender Notified:: case management 01/13/21 00:48 Consult to Dietitian/Nutrition [CONS] Routine Physician Instructions: Reason For Exam: Reason for Consult: Diet education 01/13/21 00:53 Consult to Physician [CONS] Routine Comment: Consulting Provider: ALEXY BAR Physician Instructions: Reason For Exam: Elevated troponin 01/13/21 07:56 Consult to Physician [CONS] Routine Comment: Consulting Provider: HALLE RHODES Physician Instructions: Reason For Exam: Acute on CKD Primary care physician: BRET FIGUEROA Hospitalization Condition: Stable Pertinent studies: Head CT, chest x-ray, renal ultrasound, 2d echo Hospital course: 85-year-old female, history of diabetes on insulin, CHF, hypertension, dementia was brought to the emergency room because of altered mental status. Found in the field with hypoglycemia, blood sugar of 79. In addition, there was sinus bradycardia with a heart rate in the mid 40s. CXR was negative for acute pulmonary process. CT head was negative for acute intracranial etiology. lab results noted for elevated Cr and marginally elevated troponin. Cardiology and nephrology was consulted. She was on carvedilol for chronic systolic left ventricular failure. Her previous TSH level was elevated at 4.2. At this time her TSH was normal. Carvedilol was discontinued, and patient was monitored at telemetry. 2D echo showed EF 35 to 40%. Patient's creatinine remained stable, renal ultrasound showed echogenic kidneys consistent with chronic renal disease. Cardiology recommended further follow-up as outpatient with shipping services sales representative for possible decision about pacemaker placement. Nephrology also recommended outpatient follow-up. Patient's insulin dose was reduced and recommended frequent monitoring blood glucose QA [facility]. Patient was then discharged home in stable condition with outpatient follow-up. Disposition: [id number] HOME UNDER HOME [facility] Final Discharge Diagnosis (Prints w/discharge instructions): (1) Acute metabolic encephalopathy with hypoglycemia and with underlying dementia. (2) Hypertensive urgency. (3) Acute on chronic renal failure. (4) Elevated troponin likely NSTEMI type II due to worsening renal function. (5) Acute on chronic systolic CHF (congestive heart failure), EF 35 to 40%. (6) Type 2 diabetes mellitus Time spent for discharge: 34 minutes Core Measure Documentation - Palliative Care Palliative Care/ Comfort Measures: Not Applicable - Core Measures Any of the following diagnoses?: none Exam - Physical Exam Narrative exam: Gen: Not in acute distress, lying in bed, obese HEENT: Normocephalic, atraumatic Neck : supple, no JVD Heart:S1 and S2 reg, no murmurs, rubs or gallop Lungs: clear to auscultation bilaterally, no wheeze Abd: Soft , non tender, non distended, normal bowel sounds Ext: No edema, no clubbing, no cyanosis Neuro: Awake, alert, oriented, moves all extremities - Constitutional Vitals: Temp Pulse Resp BP Pulse Ox 98.2 F 74 18 149/75 95 01/17/21 12:10 01/17/21 12:10 01/17/21 12:10 01/17/21 12:10 01/17/21 12:10 Plan Activity: advance as tolerated Weight Bearing Status: Weight Bear as Tolerated Diet: diabetic Special Instructions: record blood sugar diary Additional Instructions: Follow-up with cardiology in 1 week. Repeat BMP in 1 week. Adjust insulin dose to prevent hypoglycemia Follow up with: PRIMARY MD ALEJANDRA [Referring] - 3-5 Days SALLIE ODONNELL MD [Staff Physician] - 7 Days
[2021-01-17] MEDS ORDERED: POLYETHYLENE GLYCOL 3350 17 GM POWDER PO PRN (14:53)
[2021-01-17] MEDS ORDERED: INSULIN GLARGINE 100 UNITS/ML SUB-Q SCH (22:00)
[2021-01-17 23:36] LABS: ANA Screen, IFA Negative (Negative)
[2021-01-18 17:39] LABS: Myeloperoxidase Antibody <1.0 AI (<1.0)
[2021-01-19 06:11] LABS: Albumin 3.1 g/dL (3.8-4.8); Gamma Globulin 0.9 g/dL (0.8-1.7)
== END 2021-01-17 21:30 | disposition home health service (06) | DRG 70 ==
LOC: ED 18:20 → 4A 23:56 → OBSVTOIN 01-13 14:23 → 4A 01-13 15:38
PROVIDERS: ADMIT Hospitalist; ATTEND Internal Medicine
DX: G93.41 Metabolic encephalopathy (principal); I50.43 Acute on chronic combined systolic (congestive) and diastolic (congestive) heart failure; I21.A1 Myocardial infarction type 2; N17.9 Acute kidney failure, unspecified; I13.0 Hypertensive heart and chronic kidney disease with heart failure and stage 1 through stage 4 chronic kidney disease, or unspecified chronic kidney disease; I42.8 Other cardiomyopathies; I16.0 Hypertensive urgency; N18.9 Chronic kidney disease, unspecified; E11.22 Type 2 diabetes mellitus with diabetic chronic kidney disease; M19.90 Unspecified osteoarthritis, unspecified site; F03.90 Unspecified dementia, unspecified severity, without behavioral disturbance, psychotic disturbance, mood disturbance, and anxiety; R00.1 Bradycardia, unspecified; R77.8 Other specified abnormalities of plasma proteins; Z89.612 Acquired absence of left leg above knee; Z86.718 Personal history of other venous thrombosis and embolism; E11.649 Type 2 diabetes mellitus with hypoglycemia without coma; Z79.82 Long term (current) use of aspirin; Z79.899 Other long term (current) drug therapy; Z90.49 Acquired absence of other specified parts of digestive tract
CPT/HCPCS: 36415; 70450; 71045; 76770; 80048; 80053; 80061; 80076; 81001; 82550; 82962; 83520; 84100; 84165; 84443; 84484; 85025; 85610; 85730; 86021; 86038; 86160; 86706; 86803; 93005; 93306; 94640; G0378; A9270-GY; J0360; J1644; J1815

== ENCOUNTER 2021-09-13 22:35 | Inpatient (IN) | payer MEDICAID, MEDICARE ==
--- NOTE | 2021-09-13 23:55 | Emergency Department Report ---
ED Abdominal Pain HPI - General Chief Complaint: Abdominal Pain Stated Complaint: LOWER ABD PAIN Time Seen by Provider: 09/13/21 23:27 Source: patient, EMS Mode of arrival: Stretcher Limitations: No Limitations - History of Present Illness MD Complaint: abdominal pain -: days(s) (2 days) Location: [facility] Migration to: no migration Severity scale (0 -10): 6 Consistency: constant Worsens With: nothing Context: other (History of remote abdominal surgery) Associated Symptoms: denies: nausea, vomiting, chills, dysuria, hematochezia - Related Data Home Medications Medication Instructions Recorded Confirmed Last Taken Aspirin [Aspirin BABY CHEW TAB] 81 mg PO QDAY 05/27/14 09/14/21 2 Days Ago ~01/11/21 Docusate Sodium [Colace CAP] 100 mg PO DAILY 01/03/18 09/14/21 2 Days Ago ~01/11/21 Simvastatin [Zocor] 20 mg PO BID 01/03/18 09/14/21 2 Days Ago ~01/11/21 amLODIPine 10 mg PO DAILY 01/03/18 09/14/21 2 Days Ago ~01/11/21 Cholecalciferol (Vitamin D3) 50,000 unit PO QWEEK 09/14/21 09/14/21 Unknown [Vitamin D3 50,000UNIT CAP] Dorzolamide HCl/Timolol Maleat 1 drop OU BID 09/14/21 09/14/21 Unknown [Dorzolamide-Timolol Eye Drops] Ferrous Gluconate [Ferrous 324 mg PO QDAY 09/14/21 09/14/21 Unknown Gluconate 324 MG] Furosemide [Lasix TAB] 40 mg PO QDAY 09/14/21 09/14/21 Unknown Insulin Aspart [Novolog Flexpen] 0 unit SQ TID 09/14/21 09/14/21 Unknown Insulin Detemir [Levemir Flextouch] 0 unit SQ QHS 09/14/21 09/14/21 Unknown Irbesartan 300 mg PO QDAY 09/14/21 09/14/21 Unknown carvediloL [Coreg] 3.125 mg PO BID 09/14/21 09/14/21 Unknown Previous Rx's Medication Instructions Recorded Last Taken Type hydrALAZINE [Apresoline TAB] 100 mg PO TID #90 tab 11/03/16 2 Days Ago Rx ~01/11/21 Apixaban [Eliquis] 2.5 mg PO BID #60 tab 09/16/21 Unknown Rx Pantoprazole [Protonix] 40 mg PO QDAY #30 tablet 09/16/21 Unknown Rx Allergies Allergy/AdvReac Type Severity Reaction Status Date / Time No Known Allergies Allergy Verified 09/14/21 12:33 ED Review of Systems ROS: Stated complaint: LOWER ABD PAIN Other details as noted in HPI Comment: All other systems reviewed and negative Constitutional: denies: chills, fever Eyes: denies: eye pain, eye discharge, vision change ENT: denies: ear pain, throat pain Respiratory: denies: cough, shortness of breath, wheezing Cardiovascular: denies: chest pain, palpitations Endocrine: other (Sugar dropped to the 60s this evening) Gastrointestinal: abdominal pain (llq). denies: nausea, vomiting, diarrhea Skin: denies: lesions Neurological: denies: headache, weakness, paresthesias Psychiatric: denies: anxiety, depression Hematological/Lymphatic: denies: easy bleeding ED Past Medical Hx - Past Medical History Hx Hypertension: Yes Hx Congestive Heart Failure: Yes Hx Diabetes: Yes Hx Deep Vein Thrombosis: Yes Hx Renal Disease: (acute renal failure) Hx Arthritis: Yes Hx Asthma: No Hx COPD: No Hx Dementia: Yes (1 stage, undiagnosed per daughter) Hx HIV: No Additional medical history: high cholestoral - Surgical History Hx Pacemaker: No Hx Internal Defibrillator: No Hx Cholecystectomy: Yes (2009) Additional Surgical History: brain surg.; hernia; gallbladder. left AKA - Social History Smoking Status: Never Smoker Substance Use Type: None - Medications Home Medications: Home Medications Medication Instructions Recorded Confirmed Last Taken Type Aspirin [Aspirin BABY CHEW TAB] 81 mg PO QDAY 05/27/14 09/14/21 2 Days Ago History ~01/11/21 hydrALAZINE [Apresoline TAB] 100 mg PO TID #90 tab 11/03/16 09/14/21 2 Days Ago Rx ~01/11/21 Docusate Sodium [Colace CAP] 100 mg PO DAILY 01/03/18 09/14/21 2 Days Ago History ~01/11/21 Simvastatin [Zocor] 20 mg PO BID 01/03/18 09/14/21 2 Days Ago History ~01/11/21 amLODIPine 10 mg PO DAILY 01/03/18 09/14/21 2 Days Ago History ~01/11/21 Cholecalciferol (Vitamin D3) 50,000 unit PO QWEEK 09/14/21 09/14/21 Unknown History [Vitamin D3 50,000UNIT CAP] Dorzolamide HCl/Timolol Maleat 1 drop OU BID 09/14/21 09/14/21 Unknown History [Dorzolamide-Timolol Eye Drops] Ferrous Gluconate [Ferrous 324 mg PO QDAY 09/14/21 09/14/21 Unknown History Gluconate 324 MG] Furosemide [Lasix TAB] 40 mg PO QDAY 09/14/21 09/14/21 Unknown History Insulin Aspart [Novolog Flexpen] 0 unit SQ TID 09/14/21 09/14/21 Unknown History Insulin Detemir [Levemir Flextouch] 0 unit SQ QHS 09/14/21 09/14/21 Unknown History Irbesartan 300 mg PO QDAY 09/14/21 09/14/21 Unknown History carvediloL [Coreg] 3.125 mg PO BID 09/14/21 09/14/21 Unknown History Apixaban [Eliquis] 2.5 mg PO BID #60 tab 09/16/21 Unknown Rx Pantoprazole [Protonix] 40 mg PO QDAY #30 tablet 09/16/21 Unknown Rx ED Physical Exam - General Limitations: No Limitations General appearance: alert - Head Head exam: Present: atraumatic, normocephalic - Eye Eye exam: Present: normal appearance - ENT ENT exam: Present: mucous membranes moist - Neck Neck exam: Present: normal inspection, full ROM. Absent: tenderness - Respiratory Respiratory exam: Present: normal lung sounds bilaterally. Absent: respiratory distress - Cardiovascular Cardiovascular Exam: Present: regular rate, normal rhythm. Absent: systolic murmur, diastolic murmur, rubs, gallop - GI/Abdominal GI/Abdominal exam: Present: soft, tenderness (Left lower quadrant where she has a hernia), mass, hernia (Left lower quadrant moderate in size and markedly tender to palpation). Absent: rebound, rigid - Rectal Rectal exam: Present: deferred - Extremities Exam Extremities exam: Present: pedal edema (Right leg. The patient has an AKA on the left side) - Back Exam Back exam: Present: normal inspection, full ROM. Absent: tenderness, CVA tende rness (R), CVA tenderness (L) - Neurological Exam Neurological exam: Present: alert, oriented X3 - Psychiatric Psychiatric exam: Present: normal affect, normal mood - Skin Skin exam: Present: warm, dry, intact, normal color. Absent: rash ED Course Vital Signs 09/13/21 09/14/21 09/14/21 23:14 00:06 00:16 Temperature 98.9 F Pulse Rate 70 61 Respiratory 20 14 Rate Blood Pressure 180/79 Blood Pressure 135/53 [Right] O2 Sat by Pulse 100 98 99 Oximetry 09/14/21 09/14/21 09/14/21 00:33 00:45 01:05 Temperature Pulse Rate 66 61 62 Respiratory 22 13 13 Rate Blood Pressure 170/66 170/78 180/68 Blood Pressure [Right] O2 Sat by Pulse 100 98 100 Oximetry 09/14/21 09/14/21 09/14/21 01:15 01:41 01:44 Temperature 98.1 F Pulse Rate 69 60 102 H Respiratory 13 15 22 Rate Blood Pressure 169/68 174/79 Blood Pressure [Right] O2 Sat by Pulse 100 100 98 Oximetry 09/14/21 09/14/21 09/14/21 01:45 01:46 01:47 Temperature 98.1 F Pulse Rate 60 Respiratory 15 21 Rate Blood Pressure Blood Pressure [Right] O2 Sat by Pulse 100 98 Oximetry 09/14/21 09/14/21 09/14/21 02:01 02:15 02:30 Temperature Pulse Rate 57 L 61 62 Respiratory 13 12 24 Rate Blood Pressure 169/71 169/71 169/71 Blood Pressure [Right] O2 Sat by Pulse 99 99 97 Oximetry 09/14/21 09/14/21 09/14/21 02:46 03:01 03:15 Temperature Pulse Rate 60 59 L 62 Respiratory 15 17 18 Rate Blood Pressure 177/90 177/90 162/65 Blood Pressure [Right] O2 Sat by Pulse 100 100 100 Oximetry 09/14/21 09/14/21 09/14/21 03:30 03:31 03:45 Temperature Pulse Rate 61 60 Respiratory 19 16 13 Rate Blood Pressure 162/65 158/64 Blood Pressure [Right] O2 Sat by Pulse 100 100 Oximetry 09/14/21 09/14/21 09/14/21 04:01 04:15 04:31 Temperature Pulse Rate 63 60 59 L Respiratory 13 15 12 Rate Blood Pressure 158/64 171/71 171/71 Blood Pressure [Right] O2 Sat by Pulse 100 100 98 Oximetry 09/14/21 09/14/21 09/14/21 04:45 05:01 05:05 Temperature Pulse Rate 60 59 L Respiratory 16 13 15 Rate Blood Pressure 109/64 109/64 Blood Pressure [Right] O2 Sat by Pulse 100 100 Oximetry 09/14/21 09/14/21 05:11 05:30 Temperature 98.4 F Pulse Rate 62 59 L Respiratory 12 13 Rate Blood Pressure 109/64 Blood Pressure 109/64 [Right] O2 Sat by Pulse 100 100 Oximetry ED Medical Decision Making - Lab Data Result diagrams: 09/16/21 06:26 09/17/21 05:31 reviewed - Radiology Data Radiology results: report reviewed, image reviewed there was no evidence of a hernia, the area of swelling and tenderness represented a hematoma. whic resulted from disruption of a femoral bypass graft - Medical Decision Making Case discussed with Selvin Medina who reviewed the study and felt that it was apseudoaneurysm. The patient was crossmatched for 2 unuts ofPRBC and antibiotics administered. She was medicated several times for pain and admitted to the hospitalist service. I also discussed the findings with the patient and Critical Care Time: Yes Critical care time in (mins) excluding proc time.: 46 Critical care attestation.: If time is entered above; I have spent that time in minutes in the direct care of this critically ill patient, excluding procedure time. ED Disposition Clinical Impression: Pseudoaneurysm, Renal insufficiency Abdominal pain Qualifiers: Abdominal location: left upper quadrant Qualified Code(s): R10.12 - Left upper quadrant pain Anemia Qualifiers: Anemia type: iron deficiency Iron deficiency anemia type: unspecified iron deficiency Qualified Code(s): D50.9 - Iron deficiency anemia, unspecified Chronic kidney disease Qualifiers: Chronic kidney disease stage: unspecified stage Qualified Code(s): N18.9 - Chronic kidney disease, unspecified Disposition: 09 ADMITTED INPATIENT Is pt being admited?: Yes Condition: Stable
[2021-09-14] MEDS ORDERED: KETOROLAC 30 MG/1 ML INJ IV ONE
[2021-09-14 00:31] LABS: Albumin 3.1 g/dL (3.9-5); Calcium 8.8 mg/dL (8.4-10.2)
[2021-09-14 00:43] LABS: Basophils # (Auto) 0.1 K/mm3 (0.0-0.1); Basophils % (Auto) 0.9 % (0.0-1.8); Eosinophils % (Auto) 0.2 % (0.0-4.3); Hemoglobin 7.9 gm/dl (10.1-14.3); Lymphocytes # (Auto) 0.8 K/mm3 (1.2-5.4); Lymphocytes % (Auto) 11.4 % (13.4-35.0); Mean Corpuscular HGB Conc 31 % (30-34); Mean Corpuscular Volume 102 fl (79-97); Monocytes # (Auto) 0.4 K/mm3 (0.0-0.8); Monocytes % (Auto) 5.5 % (0.0-7.3); Platelet Count 130 K/mm3 (140-440); Red Blood Count 2.45 M/mm3 (3.65-5.03); Red Cell Distribution Width 15.1 % (13.2-15.2)
[2021-09-14 01:13] LABS: Bacteria,Urine 1+ /HPF (Negative); Bilirubin,Urine NEG (Negative); Blood,Urine NEG (Negative); Color,Urine Amber (Yellow); Mucus,Urine FEW /HPF; Urobilinogen,Urine < 2.0 mg/dL (<2.0)
[2021-09-14 01:17] LABS: Protein,Urine >500 mg/dL (Negative)
--- NOTE | 2021-09-14 02:08 | Cat Scan Report ---
CT ABDOMEN AND PELVIS WITHOUT CONTRAST INDICATION / CLINICAL INFORMATION: Patient complains of abdominal pain and Hernias. TECHNIQUE: Axial CT images were obtained through the abdomen and pelvis without IV contrast. All CT scans at this location are performed using CT dose reduction for ALARA by means of automated exposure control. COMPARISON: None available. FINDINGS: LOWER CHEST: Bilateral lower lobe scarring and/or atelectasis. Trace pericardial effusion. LIVER: No significant abnormality. GALLBLADDER: Cholecystectomy. BILE DUCTS: No significant abnormality. SPLEEN: No significant abnormality. PANCREAS: Diffuse mild pancreatic atrophy. Hypoattenuating lesion within the pancreatic head measurin g approximately centimeter too small to further characterize. ADRENALS: No significant abnormality. RIGHT KIDNEY / URETER: Atrophic right kidney with moderate renovascular calcifications. LEFT KIDNEY / URETER: Mild to moderate vascular calcifications. No acute findings involving left kidn ey. STOMACH / DUODENUM / SMALL BOWEL: No significant abnormality. COLON: Diverticulosis without acute inflammation. APPENDIX: No significant abnormality. PERITONEUM: Prior repair of anterior wall hernia mesh application without evidence of complication. LYMPH NODES: No significant adenopathy. AORTA / ARTERIES: Prior aortobiiliac graft placement demonstrate. The graft cannot be evaluated for p atency. The ambler lower aorta and, iliac arteries demonstrate severe diffuse calcification. Right axillofemoral bypass is present, patency cannot be determined. Femorofemoral crossover graft is demonstrated which is discontinuous from the left femoral anastomosi s and large subcutaneous hematoma within the panniculus measuring 7.5 cm AP dimension, 11.2 cm transv erse dimension is demonstrated with additional high attenuation fluid near the left lower abdominal r ectus musculature. Distal component of the graft adjacent left common femoral artery additionally has a large suggestive hematoma measuring 3.6 x 4.0 cm. IVC / VEINS: No significant abnormality. URINARY BLADDER: No significant abnormality. REPRODUCTIVE ORGANS: No significant abnormality. ADDITIONAL ABDOMINAL/PELVIC FINDINGS: None. SKELETAL SYSTEM: Moderate bilateral facet arthropathy mid and lower lumbar spine. No acute osseous fi ndings. IMPRESSION: 1. Discontinuous femorofemoral crossover graft with large subcutaneous hematomas as detailed througho ut the panniculus. Evaluation of active extravasation and possible secondary to lack of intravenous c ontrast. 2. Otherwise no acute findings within the abdomen or pelvis. 3. Small hypoattenuating lesion in the pancreatic head. Further evaluation of possible secondary to l ack of intravenous contrast. IMPORTANT FINDING Time of Communication (MACHINE SPLITTER/CDT): 0102 hours Licensed Practitioner Receiving Report: Dr. Mata Signer Name: Austen Troncoso II, MD Signed: 09/14/2021 2:03 AM Workstation Name: [id number]
[2021-09-14] MEDS ORDERED: MORPHINE 2 MG/1 ML INJ IV ONE (03:18)
[2021-09-14] MEDS ORDERED: SODIUM CHLORIDE 0.9% 500 ML 500 ML IV ONE (03:29)
[2021-09-14] MEDS ORDERED: AMPICILLIN/NS 1 GM/50 ML 1 GM/50 ML BAG IV ONE (03:40)
--- NOTE | 2021-09-14 03:43 | Event Note ---
Date: 09/14/[address] scan of the abdomen and pelvis. Patient with a history of redo right femoral to left femoral bypass graft, with cyropreserved graft, and a left AKA in 2013. CT scan reveals large pseudoaneurym originating from the left femoral anastamosis. Patient will require an excision of the graft with probable ligation of the left femoral artery. Patient is currently anemic with chronic renal insufficiency. Will need transfusion of at least 2 units PRBC, nephrology consult, and cardiology consult. She should also have blood cultures and be started on broad spectrum antibiotics. Will have a discussion with the patient and her family regarding the options. Given overall comorbidities, the patient has increased risk of mortality with operative intervention.
[2021-09-14] MEDS ORDERED: PIPERACILLIN/TAZOBACTAM 3.375 3.375 GM/50 ML BAG IV ONE (03:54)
[2021-09-14] MEDS ORDERED: ONDANSETRON 4 MG/2 ML INJ IV PRN (04:36)
[2021-09-14] MEDS ORDERED: MORPHINE 2 MG/1 ML INJ IV PRN (04:36)
[2021-09-14] MEDS ORDERED: MAGNESIUM HYDROXIDE (MOM) ORAL LIQD UDC PO PRN (04:36)
[2021-09-14] MEDS ORDERED: DEXTROSE 50% IN WATER (25GM) 50 ML SYRINGE IV PRN (04:36)
[2021-09-14] MEDS ORDERED: MORPHINE 4 MG/1 ML INJ IV PRN (04:36)
[2021-09-14] MEDS ORDERED: DEXTROSE 10% *Hypoglycemia IV PRN (04:43)
--- NOTE | 2021-09-14 04:47 | History and Physical Report ---
History of Present Illness Date of examination: 09/14/21 Date of admission: 09/14/2021 Chief complaint: Abdominal Pain History of present illness: 85-year-old -[place] female with known history of hypertension, diabetes mellitus, distal chronic kidney disease, left above-knee amputation, history of right femoral to left femoral bypass graft presenting in the emergency room today complaining of abdominal pain. Abdominal pain is said to be more in the lower abdomen and has been having progressive swelling in the left lower abdomen. She denies any constipation and denies any diarrhea, no nausea vomiting, no chest pain or shortness of breath, no headache or dizziness and no diaphoresis. Patient denies any hematuria or dysuria. Denies any bright red blood per rectum. She denies any fever or chills. Work-up in the emergency room today, CT of the abdomen and pelvis shows: 1. Discontinuous femorofemoral crossover graft with large subcutaneous hematomas as detailed throughout the panniculus. Evaluation of active extravasation and possible secondary to lack of intravenous contrast. 2. Otherwise no acute findings within the abdomen or pelvis. 3. Small hypoattenuating lesion in the pancreatic head. Further evaluation of possible secondary to lack of intravenous contrast. Labs significant for hemoglobin of 7.9, hematocrit of 25. BUN of 34 and creatinine of 3.4. Urinalysis shows 12 WBCs, 1+ bacteria and negative leukocyte esterase. Vascular surgeon was consulted by the ER physician regarding the CT abdomen findings. Recommendation is to place patient on empiric IV broad-spectrum antibiotics, blood cultures and also to have blood transfusion. Past History Past Medical History: diabetes, heart failure, hypertension, hyperlipidemia, renal failure Past Surgical History: cholecystectomy, Other (: brain surg.; hernia; gallbladder. left AKA) Social history: no significant social history Family history: no significant family history Medications and Allergies Allergies Allergy/AdvReac Type Severity Reaction Status Date / Time No Known Allergies Allergy Verified 02/23/15 08:27 Home Medications Medication Instructions Recorded Confirmed Last Taken Type Aspirin [Aspirin BABY CHEW TAB] 81 mg PO QDAY 05/27/14 01/13/21 2 Days Ago History ~01/11/21 hydrALAZINE [Apresoline TAB] 100 mg PO TID #90 tab 11/03/16 01/13/21 2 Days Ago Rx ~01/11/21 Docusate Sodium [Colace CAP] 100 mg PO DAILY 01/03/18 01/13/21 2 Days Ago History ~01/11/21 Fenofibrate [Tricor] 48 mg PO DAILY 01/03/18 01/13/21 2 Days Ago History ~01/11/21 Simvastatin [Zocor] 40 mg PO DAILY 01/03/18 01/13/21 2 Days Ago History ~01/11/21 Timolol 0.5% [Timoptic] 1 drop OU BID 01/03/18 01/13/21 2 Days Ago History ~01/11/21 amLODIPine 10 mg PO DAILY 01/03/18 01/13/21 2 Days Ago History ~01/11/21 Insulin Glargine [Lantus VIAL] 10 units SUB-Q QHS units 01/17/21 Unknown Rx Active Meds: Active Medications Acetaminophen (Acetaminophen 325 Mg Tab) 650 mg PO Q4H PRN PRN Reason: Pain MILD(1-3)/Fever >100.5/MARCANO Dextrose (Dextrose 50% In Water (25gm) 50 Ml Syringe) 50 ml IV Q30MIN PRN; Protocol PRN Reason: Hypoglycemia Dextrose (Dextrose 50% In Water (25gm) 50 Ml Syringe) 50 ml IV Q30MIN PRN; Protocol PRN Reason: Hypoglycemia Insulin Human Lispro (Insulin Lispro 100 Unit/Ml) 0 unit SUB-Q ACHS KIP; Protocol Insulin Human Lispro (Insulin Lispro 100 Unit/Ml) 0 unit SUB-Q ACHS KIP; Protocol Magnesium Hydroxide (Magnesium Hydroxide (Mom) Oral Liqd Udc) 30 ml PO Q4H PRN PRN Reason: Constipation Morphine Sulfate (Morphine 2 Mg/1 Ml Inj) 2 mg IV Q4H PRN PRN Reason: Pain, Moderate (4-6) Morphine Sulfate (Morphine 4 Mg/1 Ml Inj) 4 mg IV Q4H PRN PRN Reason: Pain , Severe (7-10) Ondansetron HCl (Ondansetron 4 Mg/2 Ml Inj) 4 mg IV Q8H PRN PRN Reason: Nausea And Vomiting Sodium Chloride (Sodium Chloride 0.9% 10 Ml Flush Syringe) 10 ml IV BID KIP Sodium Chloride (Sodium Chloride 0.9% 10 Ml Flush Syringe) 10 ml IV PRN PRN PRN Reason: LINE FLUSH Review of Systems Constitutional: no fever, no chills Ears, nose, mouth and throat: no nasal congestion, no sore throat Cardiovascular: no chest pain, no orthopnea, no palpitations Respiratory: no cough, no shortness of breath Gastrointestinal: abdominal pain, no nausea, no vomiting, no diarrhea Genitourinary Female: no pelvic pain, no flank pain, no dysuria, no hematuria Musculoskeletal: no neck pain, no low back pain Integumentary: no rash, no pruritis Neurological: no headaches, no confusion Psychiatric: no anxiety, no insomnia Endocrine: no polyphagia, no polydipsia, no polyuria, no nocturia Exam - Constitutional Vitals: Temp Pulse Resp BP Pulse Ox 98.1 F 57 L 19 169/71 99 09/14/21 01:47 09/14/21 02:01 09/14/21 03:30 09/14/21 02:01 09/14/21 02:01 General appearance: Present: no acute distress, well-nourished - EENT Eyes: Present: PERRL, EOM intact. Absent: scleral icterus ENT: hearing intact, clear oral mucosa, dentition normal - Neck Neck: Present: supple, normal ROM - Respiratory Respiratory effort: normal Respiratory: bilateral: CTA - Cardiovascular Rhythm: regular Heart Sounds: Present: S1 & S2. Absent: gallop, systolic murmur, diastolic murmur, rub, click - Extremities Extremities: no ischemia, pulses intact, pulses symmetrical, No edema, normal temperature, normal color, Full ROM, abnormal (Left AKA) Peripheral Pulses: within normal limits - Abdominal General gastrointestinal: Present: soft, tender, distended, normal bowel sounds, mass (Left lower quadrant swelling with moderate to severe tenderness. Moderate guarding) - Integumentary Integumentary: Present: clear, warm, dry, normal turgor. Absent: rash - Musculoskeletal Musculoskeletal: strength equal bilaterally - Psychiatric Psychiatric: appropriate mood/affect, intact judgment & insight, memory intact, cooperative - Neurologic Neurologic: CNII-XII intact, no focal deficits, moves all extremities Results - Labs CBC & Chem 7: 09/13/21 23:35 09/13/21 23:35 Labs: Abnormal lab results 09/13/21 09/13/21 09/14/21 Range/Units 23:35 23:35 02:35 RBC 2.45 L (3.65-5.03) M/mm3 Hgb 7.9 L (10.1-14.3) gm/dl Hct 25.0 L (30.3-42.9) % MCV 102 H (79-97) fl Plt Count 130 L (140-440) K/mm3 Lymph % (Auto) 11.4 L (13.4-35.0) % Lymph # (Auto) 0.8 L (1.2-5.4) K/mm3 Seg Neutrophils % 82.0 H (40.0-70.0) % Potassium 5.1 H (3.6-5.0) mmol/L Carbon Dioxide 19 L (22-30) mmol/L BUN 34 H (7-17) mg/dL Creatinine 3.4 H (0.6-1.2) mg/dL Glucose 185 H (65-100) mg/dL ALT 5 L (7-56) units/L Total Protein 6.0 L (6.3-8.2) g/dL Albumin 3.1 L (3.9-5) g/dL Urine WBC (Auto) (0.0-6.0) /HPF Crossmatch See Detail 09/14/21 Range/Units Unknown RBC (3.65-5.03) M/mm3 Hgb (10.1-14.3) gm/dl Hct (30.3-42.9) % MCV (79-97) fl Plt Count (140-440) K/mm3 Lymph % (Auto) (13.4-35.0) % Lymph # (Auto) (1.2-5.4) K/mm3 Seg Neutrophils % (40.0-70.0) % Potassium (3.6-5.0) mmol/L Carbon Dioxide (22-30) mmol/L BUN (7-17) mg/dL Creatinine (0.6-1.2) mg/dL Glucose (65-100) mg/dL ALT (7-56) units/L Total Protein (6.3-8.2) g/dL Albumin (3.9-5) g/dL Urine WBC (Auto) 12.0 H (0.0-6.0) /HPF Crossmatch Assessment and Plan - Patient Problems (1) Abdominal pain Current Visit: Yes Status: Acute Plan to address problem: Possibly secondary to a large pseudoaneurysm originating from the left femoral anastomosis. Patient has been placed on IV analgesic medication. Vascular surgeon has been notified and will be following up on patient. (2) Renal insufficiency Current Visit: No Status: Acute Plan to address problem: Consult placed to nephrology for evaluation and recommendations. (3) Type 2 diabetes mellitus Current Visit: No Status: Acute Plan to address problem: Patient placed on sliding scale insulin. We will monitor Accu-Cheks. (4) Anemia Current Visit: No Status: Chronic Plan to address problem: Patient to be transfused with packed red blood cell. We will monitor CBC. (5) DVT prophylaxis Current Visit: No Status: Acute Plan to address problem: We will place on sequential compression device. (6) Full code status Current Visit: Yes Status: Acute Plan to address problem: Patient is full code.
[2021-09-14 04:56] LABS: INR 1.16 (0.87-1.13)
[2021-09-14] MEDS ORDERED: INSULIN LISPRO 100 UNIT/ML SUB-Q SCH (07:30)
--- NOTE | 2021-09-14 09:29 | Event Note ---
Date: 09/14/21 Came to see patient. Patient states that she follows up with Dr. Alvarado. Shall consult him. Sent a message to him as well
--- NOTE | 2021-09-14 09:54 | Consultation ---
History of Present Illness - Reason for Consult Consult date: 09/14/21 acute renal failure, chronic renal failure - History of Present Illness patient was admitted for worsening abdominal pain, she was found to have large pseudoaneurysm originating from the left femoral anastomosis on CT AP and vascular consult was requested. She was also found to have worsening renal failure and nephrology consult was requested. Past History Past Medical History: diabetes, heart failure, hypertension, hyperlipidemia, renal failure Past Surgical History: cholecystectomy, Other (: brain surg.; hernia; gallbladder. left AKA) Social history: no significant social history Family history: no significant family history Medications and Allergies Allergies Allergy/AdvReac Type Severity Reaction Status Date / Time No Known Allergies Allergy Verified 02/23/15 08:27 Home Medications Medication Instructions Recorded Confirmed Last Taken Type Aspirin [Aspirin BABY CHEW TAB] 81 mg PO QDAY 05/27/14 01/13/21 2 Days Ago History ~01/11/21 hydrALAZINE [Apresoline TAB] 100 mg PO TID #90 tab 11/03/16 01/13/21 2 Days Ago Rx ~01/11/21 Docusate Sodium [Colace CAP] 100 mg PO DAILY 01/03/18 01/13/21 2 Days Ago History ~01/11/21 Fenofibrate [Tricor] 48 mg PO DAILY 01/03/18 01/13/21 2 Days Ago History ~01/11/21 Simvastatin [Zocor] 40 mg PO DAILY 01/03/18 01/13/21 2 Days Ago History ~01/11/21 Timolol 0.5% [Timoptic] 1 drop OU BID 01/03/18 01/13/21 2 Days Ago History ~01/11/21 amLODIPine 10 mg PO DAILY 01/03/18 01/13/21 2 Days Ago History ~01/11/21 Insulin Glargine [Lantus VIAL] 10 units SUB-Q QHS units 01/17/21 Unknown Rx Active Meds: Active Medications Acetaminophen (Acetaminophen 325 Mg Tab) 650 mg PO Q4H PRN PRN Reason: Pain MILD(1-3)/Fever >100.5/MARCANO Dextrose (Dextrose 10% *Hypoglycemia) 0 ml IV PRN PRN PRN Reason: Hypoglycemia Piperacillin Sod/Tazobactam Sod (Zosyn/Ns 2.25 Gm/50ml) 2.25 gm in 50 mls @ 100 mls/hr IV Q8HR [facility] Sodium Bicarbonate 75 meq/ (Sodium Chloride) 1,075 mls @ 100 mls/hr IV DIREC T KIP Insulin Human Lispro (Insulin Lispro 100 Unit/Ml) 0 unit SUB-Q ACHS KIP; Protocol Magnesium Hydroxide (Magnesium Hydroxide (Mom) Oral Liqd Udc) 30 ml PO Q4H PRN PRN Reason: Constipation Morphine Sulfate (Morphine 2 Mg/1 Ml Inj) 2 mg IV Q4H PRN PRN Reason: Pain, Moderate (4-6) Morphine Sulfate (Morphine 4 Mg/1 Ml Inj) 4 mg IV Q4H PRN PRN Reason: Pain , Severe (7-10) Last Admin: 09/14/21 05:05 Dose: 4 mg Ondansetron HCl (Ondansetron 4 Mg/2 Ml Inj) 4 mg IV Q8H PRN PRN Reason: Nausea And Vomiting Sodium Chloride (Sodium Chloride 0.9% 10 Ml Flush Syringe) 10 ml IV BID KIP Sodium Chloride (Sodium Chloride 0.9% 10 Ml Flush Syringe) 10 ml IV PRN PRN PRN Reason: LINE FLUSH Exam - Vital Signs Vital signs: Vital Signs Temp Pulse Resp BP Pulse Ox 98.9 F 70 20 135/53 100 09/13/21 23:14 09/13/21 23:14 09/13/21 23:14 09/13/21 23:14 09/13/21 23:14 Results - Lab Results 09/13/21 23:35 09/13/21 23:35 Most recent lab results Calcium 8.8 mg/dL (8.4-10.2) 09/13/21 23:35 Assessment and Plan (1) Abdominal pain (2) Renal insufficiency (3) Type 2 diabetes mellitus (4) Anemia patient has h/o CKD, worsening Cr this admission possibly 2/2 progressing CKD vs. ALLAN vs. both will start IVF 100 cc/h CT AP -ve for hydronephrosis will check urine lytes renally dose meds strict I&O daily weight no indication for [employer]
[2021-09-14] MEDS: INSULIN LISPRO 100 UNIT/ML SUB-Q SCH ×4 (10:12→21:24)
--- NOTE | 2021-09-14 10:34 | Consultation ---
History of Present Illness - Reason for Consult Consult date: 09/14/21 Abdominal pain - History of Present Illness Patient with an extensive vascular history performed most recently in 2013. [place] montalvo is previously undergone an ax-fem, femorofemoral, redo femorofemoral with cadaveric graft. The patient has been in her usual state of health however she is developing increasingly and abdominal pain. I the patient states that her abdominal swelling has been going on for a long time. Patient with some pulsatility along her lower anterior abdominal wall. Left femoral pulse palpable although weak. Left AKA stump is well perfused. Past History Past Medical History: diabetes, heart failure, hypertension, hyperlipidemia, renal failure Past Surgical History: cholecystectomy, Other (: brain surg.; hernia; gallbladder. left AKA, axillofemoral, femorofemoral, redo femorofemoral) Social history: no significant social history Family history: no significant family history Medications and Allergies Allergies Allergy/AdvReac Type Severity Reaction Status Date / Time No Known Allergies Allergy Verified 02/23/15 08:27 Home Medications Medication Instructions Recorded Confirmed Last Taken Type Aspirin [Aspirin BABY CHEW TAB] 81 mg PO QDAY 05/27/14 01/13/21 2 Days Ago History ~01/11/21 hydrALAZINE [Apresoline TAB] 100 mg PO TID #90 tab 11/03/16 01/13/21 2 Days Ago Rx ~01/11/21 Docusate Sodium [Colace CAP] 100 mg PO DAILY 01/03/18 01/13/21 2 Days Ago History ~01/11/21 Fenofibrate [Tricor] 48 mg PO DAILY 01/03/18 01/13/21 2 Days Ago History ~01/11/21 Simvastatin [Zocor] 40 mg PO DAILY 01/03/18 01/13/21 2 Days Ago History ~01/11/21 Timolol 0.5% [Timoptic] 1 drop OU BID 01/03/18 01/13/21 2 Days Ago History ~01/11/21 amLODIPine 10 mg PO DAILY 01/03/18 01/13/21 2 Days Ago History ~01/11/21 Insulin Glargine [Lantus VIAL] 10 units SUB-Q QHS units 01/17/21 Unknown Rx Active Meds: Active Medications Acetaminophen (Acetaminophen 325 Mg Tab) 650 mg PO Q4H PRN PRN Reason: Pain MILD(1-3)/Fever >100.5/MARCANO Dextrose (Dextrose 10% *Hypoglycemia) 0 ml IV PRN PRN PRN Reason: Hypoglycemia Piperacillin Sod/Tazobactam Sod (Zosyn/Ns 2.25 Gm/50ml) 2.25 gm in 50 mls @ 100 mls/hr IV Q8HR KIP Sodium Bicarbonate 75 meq/ (Sodium Chloride) 1,075 mls @ 100 mls/hr IV DIRECT KIP Insulin Human Lispro (Insulin Lispro 100 Unit/Ml) 0 unit SUB-Q ACHS KIP; Protocol Last Admin: 09/14/21 10:12 Dose: Not Given Magnesium Hydroxide (Magnesium Hydroxide (Mom) Oral Liqd Udc) 30 ml PO Q4H PRN PRN Reason: Constipation Morphine Sulfate (Morphine 2 Mg/1 Ml Inj) 2 mg IV Q4H PRN PRN Reason: Pain, Moderate (4-6) Morphine Sulfate (Morphine 4 Mg/1 Ml Inj) 4 mg IV Q4H PRN PRN Reason: Pain , Severe (7-10) Last Admin: 09/14/21 05:05 Dose: 4 mg Ondansetron HCl (Ondansetron 4 Mg/2 Ml Inj) 4 mg IV Q8H PRN PRN Reason: Nausea And Vomiting Sodium Chloride (Sodium Chloride 0.9% 10 Ml Flush Syringe) 10 ml IV BID KIP Sodium Chloride (Sodium Chloride 0.9% 10 Ml Flush Syringe) 10 ml IV PRN PRN PRN Reason: LINE FLUSH Review of Systems All systems: negative Exam - Constitutional Vitals: Temp Pulse Resp BP Pulse Ox 98.6 F 56 L 17 163/62 98 09/14/21 10:00 09/14/21 10:00 09/14/21 10:00 09/14/21 10:00 09/14/21 10:00 General appearance: Present: no acute distress, obese - EENT Eyes: Present: EOM intact ENT: hearing intact - Neck Neck: Present: supple, normal ROM - Respiratory Respiratory effort: normal - Extremities Extremities: abnormal (Left AKA, right leg well perfused with sequela of venous hypertension) - Abdominal General gastrointestinal: Present: soft (Some pulsatility along the left anterior abdominal wall. Palpation reveals deep pulsatility with thickening.) Female genitourinary: Present: deferred - Rectal Rectal Exam: deferred - Psychiatric Psychiatric: appropriate mood/affect, cooperative Results - Labs CBC & Chem 7: 09/13/21 23:35 09/13/21 23:35 Labs: Abnormal lab results 09/13/21 09/13/21 09/14/21 Range/Units 23:35 23:35 02:35 RBC 2.45 L (3.65-5.03) M/mm3 Hgb 7.9 L (10.1-14.3) gm/dl Hct 25.0 L (30.3-42.9) % MCV 102 H (79-97) fl Plt Count 130 L (140-440) K/mm3 Lymph % (Auto) 11.4 L (13.4-35.0) % Lymph # (Auto) 0.8 L (1.2-5.4) K/mm3 Seg Neutrophils % 82.0 H (40.0-70.0) % PT (12.2-14.9) Sec. INR (0.87-1.13) Potassium 5.1 H (3.6-5.0) mmol/L Carbon Dioxide 19 L (22-30) mmol/L BUN 34 H (7-17) mg/dL Creatinine 3.4 H (0.6-1.2) mg/dL Glucose 185 H (65-100) mg/dL ALT 5 L (7-56) units/L Total Protein 6.0 L (6.3-8.2) g/dL Albumin 3.1 L (3.9-5) g/dL Urine WBC (Auto) (0.0-6.0) /HPF Crossmatch See Detail 09/14/21 09/14/21 Range/Units 04:01 Unknown RBC (3.65-5.03) M/mm3 Hgb (10.1-14.3) gm/dl Hct (30.3-42.9) % MCV (79-97) fl Plt Count (140-440) K/mm3 Lymph % (Auto) (13.4-35.0) % Lymph # (Auto) (1.2-5.4) K/mm3 Seg Neutrophils % (40.0-70.0) % PT 16.2 H (12.2-14.9) Sec. INR 1.16 H (0.87-1.13) Potassium (3.6-5.0) mmol/L Carbon Dioxide (22-30) mmol/L BUN (7-17) mg/dL Creatinine (0.6-1.2) mg/dL Glucose (65-100) mg/dL ALT (7-56) units/L Total Protein (6.3-8.2) g/dL Albumin (3.9-5) g/dL Urine WBC (Auto) 12.0 H (0.0-6.0) /HPF Crossmatch - Imaging and Cardiology CT scan - abdomen: image reviewed Assessment and Plan Patient with extensive vascular history, noncontrasted CT scan demonstrates significance aneurysmal degeneration of her bypass graft. Questionable extravasation. Patient is receiving blood at time of examination without difficulty. Given the patient's extensive surgical history, patient will need evaluation of her lower abdomen bypass graft as well as the pseudoaneurysms to determine if this is simply aneurysmal degeneration versus focal area of extravasation.
[2021-09-14] MEDS ORDERED: PIPERACILLIN/TAZOBACTAM 3.375 3.375 GM/50 ML BAG IV SCH (12:00)
[2021-09-14] MEDS: SODIUM BICARBONATE 75 MEQ in SODIUM CHLORIDE 0.45% 1000 ML 1,000 ML IV SCH ×2 (12:57→23:39)
--- NOTE | 2021-09-14 13:09 | Event Note ---
Date: 09/14/21 Patient seen and examined at bedside. She has no complaints at this time. We discussed current care plan and vascular surgery consultation. We will continue current plan per HPI.
--- NOTE | 2021-09-14 13:40 | Vascular Lab Report ---
AO/IVC/ILIAC DUPLEX LTD INDICATION / CLINICAL INFORMATION: Pseudoaneurysms. pseudoaneurysm; abdominal pain. hx of multiple va scular surgeries( axillofem graft,rt.femfem graft (2x));diabetes,chf,htn,hyperlipidemia,renal failure ,lt.aka. TECHNIQUE: B-mode and color Doppler imaging was used. COMPARISON: CT dated 09/14/21 FINDINGS: There is a large pseudoaneurysm arising from the mid femorofemoral bypass graft located in the anteri or midline lower abdomen/pelvis. Pseudoaneurysm measures 6.9 x 5.8 cm the neck measuring about 0.9 cm . This pseudoaneurysm corresponds to the large collection/hematoma noted on CT. The femorofemoral byp ass graft is disrupted in its mid substance on CT. This finding is confirmed on ultrasound. IMPRESSION: 1. Large pseudoaneurysm at the site of disruption of the femorofemoral bypass graft in the lower ante rior midline abdomen/pelvis corresponding to CT findings. Laborer Tanbark notified Dr. Islas at 12:50 PM. Signer Name: Juliana Michel MD Signed: 09/14/2021 1:36 PM Workstation Name: [id number]
--- NOTE | 2021-09-14 13:41 | Consultation ---
History of Present Illness Consult date: 09/14/21 Consult reason: pre op evaluation History of present illness: The patient is an 85-year-old woman with complex peripheral arterial disease, that have resulted in a previous left above-knee amputation and femoral to femoral bypass grafts. She presented to this hospital at this time with abdominal pain, and a CT scan of the abdomen reports a discontinuous femoral to femoral graft, with associated hematoma that may suggest extravasation. She is being evaluated for possible redo vascular surgery, and cardiac consultation is requested for preoperative cardiac assessment. Cardiac history is notable for longstanding nonischemic cardiomyopathy. Her most recent echocardiogram 6 months ago reported a left ventricular ejection fr action of 35 to 40%. Patient follows up regularly with her car wiper Dr. Mendez, currently is comfortable with no chest pain, no shortness of breath, no lower extremity edema, asymptomatic cardiac status. A 12-lead EKG is unavailable but on awake overnight monitor she has a stable sinus rhythm with a nonspecific intraventricular conduction block. Past History Past Medical History: diabetes, heart failure, hypertension, hyperlipidemia, renal failure Past Surgical History: cholecystectomy, Other (: brain surg.; hernia; gallbladder. left AKA, axillofemoral, femorofemoral, redo femorofemoral) Social history: no significant social history Family history: no significant family history Medications and Allergies Allergies Allergy/AdvReac Type Severity Reaction Status Date / Time No Known Allergies Allergy Verified 09/14/21 12:33 Home Medications Medication Instructions Recorded Confirmed Last Taken Type Aspirin [Aspirin BABY CHEW TAB] 81 mg PO QDAY 05/27/14 09/14/21 2 Days Ago History ~01/11/21 hydrALAZINE [Apresoline TAB] 100 mg PO TID #90 tab 11/03/16 09/14/21 2 Days Ago Rx ~01/11/21 Docusate Sodium [Colace CAP] 100 mg PO DAILY 01/03/18 09/14/21 2 Days Ago History ~01/11/21 Simvastatin [Zocor] 20 mg PO BID 01/03/18 09/14/21 2 Days Ago History ~01/11/21 amLODIPine 10 mg PO DAILY 01/03/18 09/14/21 2 Days Ago History ~01/11/21 Cholecalciferol (Vitamin D3) 50,000 unit PO QWEEK 09/14/21 09/14/21 Unknown History [Vitamin D3 50,000UNIT CAP] Dorzolamide HCl/Timolol Maleat 1 drop OU BID 09/14/21 09/14/21 Unknown History [Dorzolamide-Timolol Eye Drops] Ferrous Gluconate [Ferrous 324 mg PO QDAY 09/14/21 09/14/21 Unknown History Gluconate 324 MG] Furosemide [Lasix TAB] 40 mg PO QDAY 09/14/21 09/14/21 Unknown History Insulin Aspart [Novolog Flexpen] 0 unit SQ TID 09/14/21 09/14/21 Unknown History Insulin Detemir [Levemir Flextouch] 0 unit SQ QHS 09/14/21 09/14/21 Unknown History Irbesartan 300 mg PO QDAY 09/14/21 09/14/21 Unknown History carvediloL [Coreg] 3.125 mg PO BID 09/14/21 09/14/21 Unknown History Active Meds: Active Medications Acetaminophen (Acetaminophen 325 Mg Tab) 650 mg PO Q4H PRN PRN Reason: Pain MILD(1-3)/Fever >100.5/MARCANO Dextrose (Dextrose 10% *Hypoglycemia) 0 ml IV PRN PRN PRN Reason: Hypoglycemia Piperacillin Sod/Tazobactam Sod (Zosyn/Ns 2.25 Gm/50ml) 2.25 gm in 50 mls @ 100 mls/hr IV Q8HR KIP Sodium Bicarbonate 75 meq/ (Sodium Chloride) 1,075 mls @ 100 mls/hr IV DIRECT KIP Last Admin: 09/14/21 12:57 Dose: 100 mls/hr Insulin Human Lispro (Insulin Lispro 100 Unit/Ml) 0 unit SUB-Q ACHS KIP; Protocol Last Admin: 09/14/21 12:57 Dose: Not Given Magnesium Hydroxide (Magnesium Hydroxide (Mom) Oral Liqd Udc) 30 ml PO Q4H PRN PRN Reason: Constipation Morphine Sulfate (Morphine 2 Mg/1 Ml Inj) 2 mg IV Q4H PRN PRN Reason: Pain, Moderate (4-6) Morphine Sulfate (Morphine 4 Mg/1 Ml Inj) 4 mg IV Q4H PRN PRN Reason: Pain , Severe (7-10) Last Admin: 09/14/21 05:05 Dose: 4 mg Ondansetron HCl (Ondansetron 4 Mg/2 Ml Inj) 4 mg IV Q8H PRN PRN Reason: Nausea And Vomiting Sodium Chloride (Sodium Chloride 0.9% 10 Ml Flush Syringe) 10 ml IV BID KIP Last Admin: 09/14/21 12:57 Dose: 10 ml Sodium Chloride (Sodium Chloride 0.9% 10 Ml Flush Syringe) 10 ml IV PRN PRN PRN Reason: LINE FLUSH Review of Systems Cardiovascular: no chest pain, no orthopnea, no palpitations, no rapid/irregular heart beat, no edema, no syncope, no lightheadedness, no shortness of breath Physical Examination Vital Signs Temp Pulse Resp BP Pulse Ox 98.9 F 70 20 135/53 100 09/13/21 23:14 09/13/21 23:14 09/13/21 23:14 09/13/21 23:14 09/13/21 23:14 General appearance: no acute distress HEENT: Positive: PERRL Neck: Positive: neck supple Cardiac: Positive: Reg Rate and Rhythm Lungs: Positive: clear to auscultation Neuro: Positive: Grossly Intact Abdomen: Positive: Soft Female genitourinary: deferred Skin: Positive: Clear Musculoskeletal: other (Status post left above-knee amputation) Extremities: Absent: edema Results 09/13/21 23:35 09/13/21 23:35 Cardiac Enzymes 09/13/21 Range/Units 23:35 AST 17 (5-40) units/L Coagulation 09/14/21 Range/Units 04:01 PT 16.2 H (12.2-14.9) Sec. INR 1.16 H (0.87-1.13) CBC 09/13/21 Range/Units 23:35 WBC 7.3 (4.5-11.0) K/mm3 RBC 2.45 L (3.65-5.03) M/mm3 Hgb 7.9 L (10.1-14.3) gm/dl Hct 25.0 L (30.3-42.9) % Plt Count 130 L (140-440) K/mm3 Lymph # (Auto) 0.8 L (1.2-5.4) K/mm3 [place] # (Auto) 0.4 (0.0-0.8) K/mm3 Eos # (Auto) 0.0 (0.0-0.4) K/mm3 Baso # (Auto) 0.1 (0.0-0.1) K/mm3 Comprehensive Metabolic Panel 09/13/21 Range/Units 23:35 Sodium 141 (137-145) mmol/L Potassium 5.1 H (3.6-5.0) mmol/L Chloride 106.9 (98-107) mmol/L Carbon Dioxide 19 L (22-30) mmol/L BUN 34 H (7-17) mg/dL Creatinine 3.4 H (0.6-1.2) mg/dL Glucose 185 H (65-100) mg/dL Calcium 8.8 (8.4-10.2) mg/dL AST 17 (5-40) units/L ALT 5 L (7-56) units/L Alkaline Phosphatase 44 (35-129) units/L Total Protein 6.0 L (6.3-8.2) g/dL Albumin 3.1 L (3.9-5) g/dL EKG interpretations - Telemetry EKG Rhythm: Sinus Rhythm Assessment and Plan - Patient Problems (1) Preoperative cardiovascular examination Current Visit: Yes Status: Acute Plan to address problem: Patient is awaiting vascular surgery as described above. History of moderate severity nonischemic cardiomyopathy, current cardiac status is asymptomatic. Overall, low to moderate cardiac risk. Risks and benefits discussed extensively with the patient and her 2 sons who at the bedside, there aware of benefits of surgery and the potential risks. You may proceed with surgery as indicated. We will order a preoperative twelve-lead EKG for baseline assessment.
[2021-09-14] MEDS: PIPERACIL-TAZO 2.25 GM/50 ML 2.25 GM/50 ML BAG IV SCH ×2 (13:58→21:16)
--- NOTE | 2021-09-14 15:26 | Event Note ---
Date: 09/14/21 Ultrasound of the bypass graft and anastomosis was performed and evaluated. No evidence of extravasation. There is multiple pseudoaneurysmal degeneration of the portion of the bypass graft. Given the patient's numerous prior surgeries, the patient will be scheduled for attempt to place Viabahn through the degenerated bypass graft portion to exclude the pseudoaneurysms. This to be scheduled for tomorrow.
[2021-09-14] MEDS: amLODIPine 10 MG TAB PO SCH (17:00)
[2021-09-14] MEDS: hydrALAZINE 100 MG TAB PO SCH (20:12)
[2021-09-14] MEDS: PRAVASTATIN 40 MG TAB PO SCH (21:15)
[2021-09-14] MEDS: carvediloL 3.125 MG TAB PO SCH (21:15)
[2021-09-14] MEDS ORDERED: SIMVASTATIN 40 MG PO SCH (22:00)
[2021-09-14] MEDS ORDERED: NON-FORMULARY EACH (Dorzolamide Hcl/Timolol Maleat [Dorzolamide-Timolol Eye Drops] 10 ML D OP SCH (22:00)
[2021-09-15 04:41] LABS: Basophils # (Auto) 0.1 K/mm3 (0.0-0.1); Basophils % (Auto) 1.3 % (0.0-1.8); Eosinophils # (Auto) 0.3 K/mm3 (0.0-0.4); Eosinophils % (Auto) 5.7 % (0.0-4.3); Hematocrit 25.4 % (30.3-42.9); Hemoglobin 8.3 gm/dl (10.1-14.3); Lymphocytes # (Auto) 1.2 K/mm3 (1.2-5.4); Lymphocytes % (Auto) 20.6 % (13.4-35.0); Mean Corpuscular HGB Conc 33 % (30-34); Mean Corpuscular Volume 95 fl (79-97); Monocytes # (Auto) 0.5 K/mm3 (0.0-0.8); Monocytes % (Auto) 7.8 % (0.0-7.3); Red Blood Count 2.68 M/mm3 (3.65-5.03); Red Cell Distribution Width 16.7 % (13.2-15.2)
[2021-09-15 04:44] LABS: Platelet Count 99 K/mm3 (140-440)
[2021-09-15 05:00] LABS: Calcium 7.7 mg/dL (8.4-10.2)
[2021-09-15] MEDS: PIPERACIL-TAZO 2.25 GM/50 ML 2.25 GM/50 ML BAG IV SCH ×3 (05:09→22:10)
--- NOTE | 2021-09-15 07:41 | Progress Note ---
Assessment and Plan Assessment and plan: #Abdominal pain-improved #Psuedoaneurysm of L femoral anastomosis -large pseudoaneurysm originating from the left femoral anastomosis seen on CT of abdomen/pelvis -No extravasation from the graft/pseudoaneurysm seen -Vascular surgery following, plan for intervention today #Chronic kidney disease -Nephrology following, assistance appreciated -Avoid nephrotoxins and renally dose medications #Type 2 diabetes mellitus -continue sliding scale insulin and Accu-Cheks #Anemia of Chronic Disease -Likely secondary to kidney disease -Transfused 2 units of packed red cells -We will transfuse for hemoglobin less than 7 #Advanced care planning -Disease education conducted, care plan discussed, diagnoses discussed, prognosis discussed, and patient acknowledges understanding with care plan -Time: +30 min History Interval history: No acute events overnight. Patient awaiting vascular surgery intervention. Has no complaints this time. Hospitalist Physical - Physical exam Narrative exam: GENERAL: Well-developed well-nourished. In no acute distress. HEENT: Normocephalic. Atraumatic. NECK: Supple. CHEST/LUNGS: CTAB on room air HEART/CARDIOVASCULAR: RRR. No murmur, rubs or gallops appreciated. ABDOMEN: +BS. Right lower quadrant protrusion, no fluctuance appreciated. NT/ND. SKIN: No rashes noted. NEURO: No focal motor deficit. Follows all commands. MUSCULOSKELETAL: No joint effusion EXTREMITIES: Right lower extremity with chronic venous stasis skin changes. L eft lower extremity stump healed. PSYCH: Cooperative. - Constitutional Vitals: Temp Pulse Resp BP Pulse Ox 97.7 F 63 16 171/67 98 09/15/21 04:37 09/15/21 04:37 09/15/21 04:37 09/15/21 04:37 09/15/21 04:37 General appearance: Present: no acute distress Results - Labs CBC & Chem 7: 09/15/21 04:07 09/15/21 04:07 Labs: Laboratory Last Values WBC 6.0 K/mm3 (4.5-11.0) 09/15/21 04:07 RBC 2.68 M/mm3 (3.65-5.03) L 09/15/21 04:07 Hgb 8.3 gm/dl (10.1-14.3) L 09/15/21 04:07 Hct 25.4 % (30.3-42.9) L 09/15/21 04:07 MCV 95 fl (79-97) 09/15/21 04:07 MCH 31 pg (28-32) 09/15/21 04:07 MCHC 33 % (30-34) 09/15/21 04:07 RDW 16.7 % (13.2-15.2) H 09/15/21 04:07 Plt Count 99 K/mm3 (140-440) L 09/15/21 04:07 Lymph % (Auto) 20.6 % (13.4-35.0) 09/15/21 04:07 [place] % (Auto) 7.8 % (0.0-7.3) H 09/15/21 04:07 Eos % (Auto) 5.7 % (0.0-4.3) H 09/15/21 04:07 Baso % (Auto) 1.3 % (0.0-1.8) 09/15/21 04:07 Lymph # (Auto) 1.2 K/mm3 (1.2-5.4) 09/15/21 04:07 [place] # (Auto) 0.5 K/mm3 (0.0-0.8) 09/15/21 04:07 Eos # (Auto) 0.3 K/mm3 (0.0-0.4) 09/15/21 04:07 Baso # (Auto) 0.1 K/mm3 (0.0-0.1) 09/15/21 04:07 Seg Neutrophils % 64.6 % (40.0-70.0) 09/15/21 04:07 Seg Neutrophils # 3.9 K/mm3 (1.8-7.7) 09/15/21 04:07 PT 16.2 Sec. (12.2-14.9) H 09/14/21 04:01 INR 1.16 (0.87-1.13) H 09/14/21 04:01 Sodium 139 mmol/L (137-145) 09/15/21 04:07 Potassium 4.1 mmol/L (3.6-5.0) 09/15/21 04:07 Chloride 105.1 mmol/L (98-107) 09/15/21 04:07 Carbon Dioxide 24 mmol/L (22-30) 09/15/21 04:07 Anion Gap 14 mmol/L 09/15/21 04:07 BUN 36 mg/dL (7-17) H 09/15/21 04:07 Creatinine 3.6 mg/dL (0.6-1.2) H 09/15/21 04:07 Estimated GFR 15 ml/min 09/15/21 04:07 BUN/Creatinine Ratio 10 % 09/15/21 04:07 Glucose 122 mg/dL (65-100) H 09/15/21 04:07 POC Glucose 116 mg/dL (70-105) H 09/15/21 07:26 Calcium 7.7 mg/dL (8.4-10.2) L 09/15/21 04:07 Phosphorus 4.70 mg/dL (2.5-4.5) H 09/15/21 04:07 Total Bilirubin 0.30 mg/dL (0.1-1.2) 09/13/21 23:35 AST 17 units/L (5-40) 09/13/21 23:35 ALT 5 units/L (7-56) L 09/13/21 23:35 Alkaline Phosphatase 44 units/L (35-129) 09/13/21 23:35 Total Protein 6.0 g/dL (6.3-8.2) L 09/13/21 23:35 Albumin 3.1 g/dL (3.9-5) L 09/13/21 23:35 Albumin/Globulin Ratio 1.1 % 09/13/21 23:35 Lipase 53 units/L (13-60) 09/13/21 23:35 Urine Color Nickie (Yellow) 09/14/21 Unknown Urine Turbidity Cloudy (Clear) 09/14/21 Unknown Urine pH 5.0 (5.0-7.0) 09/14/21 Unknown Ur Specific [place] 1.018 (1.003-1.030) 09/14/21 Unknown Urine Protein >500 mg/dL (Negative) 09/14/21 Unknown Urine Glucose (UA) 150 mg/dL (Negative) 09/14/21 Unknown Urine Ketones Neg mg/dL (Negative) 09/14/21 Unknown Urine Blood Neg (Negative) 09/14/21 Unknown Urine Nitrite Neg (Negative) 09/14/21 Unknown Urine Bilirubin Neg (Negative) 09/14/21 Unknown Urine Urobilinogen < 2.0 mg/dL (<2.0) 09/14/21 Unknown Ur Leukocyte Esterase Neg (Negative) 09/14/21 Unknown Urine WBC (Auto) 12.0 /HPF (0.0-6.0) H 09/14/21 Unknown Urine RBC (Auto) 2.0 /HPF (0.0-6.0) 09/14/21 Unknown U Epithel Cells (Auto) 1.0 /HPF (0-13.0) 09/14/21 Unknown Urine Bacteria (Auto) 1+ /HPF (Negative) 09/14/21 Unknown Urine Mucus Few /HPF 09/14/21 Unknown Urine Yeast (Budding) 1+ /HPF 09/14/21 Unknown Blood Type B POSITIVE 09/14/21 02:35 Antibody Screen Negative 09/14/21 02:35 Crossmatch See Detail 09/14/21 02:35 Microbiology: Microbiology 09/14/21 04:01 Peripheral/Venous Blood Culture - Preliminary NO GROWTH AFTER 24 HOURS 09/14/21 04:01 Peripheral/Venous Blood Culture - Preliminary NO GROWTH AFTER 24 HOURS Peguero/IV: Voiding Method Incontinent Active Medications - Current Medications Current Medications: Generic Name Dose Route Start Last Admin Trade Name Freq PRN Reason Stop Dose Admin Acetaminophen 650 mg 09/14/21 04:36 Acetaminophen 325 Mg Tab PO Q4H PRN Pain MILD(1-3)/Fever >100.5/MARCANO Amlodipine Besylate 10 mg 09/14/21 18:00 09/14/21 17:00 Amlodipine 10 Mg Tab PO 10 mg DAILY KIP Administration Carvedilol 3.125 mg 09/14/21 22:00 09/14/21 21:15 Carvedilol 3.125 Mg Tab PO 3.125 mg BID KIP Administration Dextrose 0 ml 09/14/21 04:43 Dextrose 10% *Hypoglycemia IV PRN PRN Hypoglycemia Docusate Sodium 100 mg 09/15/21 10:00 Docusate Sodium 100 Mg Cap PO DAILY [facility] Hydralazine HCl 100 mg 09/14/21 20:00 09/14/21 20:12 Hydralazine 100 Mg Tab PO 100 mg TID KIP Administration Piperacillin Sod/Tazobactam Sod 2.25 gm in 50 mls @ 100 mls/hr 09/14/21 14:00 09/15/21 05:09 Zosyn/Ns 2.25 Gm/50ml IV 100 mls/hr Q8HR KIP Administration Sodium Bicarbonate 75 meq/ 1,075 mls @ 100 mls/hr 09/14/21 11:00 09/14/21 23:39 Sodium Chloride IV 100 mls/hr DIRECT KIP Administration Insulin Human Lispro 0 unit 09/14/21 07:30 09/14/21 21:24 Insulin Lispro 100 Unit/Ml SUB-Q 2 unit ACHS KIP Administration Protocol Magnesium Hydroxide 30 ml 09/14/21 04:36 Magnesium Hydroxide (Mom) Oral Liqd Udc PO Q4H PRN Constipation Miscellaneous Medication 1 drop 09/14/21 22:00 Dorzolamide Hcl/Timolol Maleat [Dorzolamide-Timolol Eye Drops] OP BID KIP Morphine Sulfate 2 mg 09/14/21 04:36 Morphine 2 Mg/1 Ml Inj IV Q4H PRN Pain, Moderate (4-6) Morphine Sulfate 4 mg 09/14/21 04:36 09/14/21 05:05 Morphine 4 Mg/1 Ml Inj IV 4 mg Q4H PRN Administration Pain , Severe (7-10) Ondansetron HCl 4 mg 09/14/21 04:36 Ondansetron 4 Mg/2 Ml Inj IV Q8H PRN Nausea And Vomiting Pravastatin Sodium 40 mg 09/14/21 22:00 09/14/21 21:15 Pravastatin 40 Mg Tab PO 40 mg QHS KIP Administration Sodium Chloride 10 ml 09/14/21 10:00 09/14/21 21:16 Sodium Chloride 0.9% 10 Ml Flush Syringe IV 10 ml BID KIP Administration Sodium Chloride 10 ml 09/14/21 04:36 Sodium Chloride 0.9% 10 Ml Flush Syringe IV PRN PRN LINE FLUSH
[2021-09-15] MEDS ORDERED: HEPARIN/NS 5000 UNIT/500ML 1,000 ML IR ONE (08:32)
[2021-09-15] MEDS ORDERED: ceFAZolin/Water 2 GM/20 ML 2 GM/20 ML SYRINGE IV ONE (08:33)
[2021-09-15] MEDS: hydrALAZINE 100 MG TAB PO SCH ×3 (08:35→20:10)
[2021-09-15] MEDS: INSULIN LISPRO 100 UNIT/ML SUB-Q SCH ×3 (08:35→22:12)
--- NOTE | 2021-09-15 09:57 | Progress Note ---
Assessment and Plan (1) Abdominal pain (2) Renal insufficiency (3) Type 2 diabetes mellitus (4) Anemia patient has h/o CKD, worsening Cr this admission possibly 2/2 progressing CKD vs. ALLAN vs. both slowly rising Cr, will check urine creatinine clearance cont IVF CT AP -ve for hydronephrosis renally dose meds strict I&O daily weight no indication for PLUNKET NURSE Subjective Date of service: 09/15/21 Principal diagnosis: CKD Interval history: no acute distress Objective - Vital Signs Vital signs: Vital Signs - 12hr 09/14/21 09/15/21 22:00 04:37 Temperature 97.7 F Pulse Rate 63 Respiratory 16 Rate Blood Pressure 171/67 O2 Sat by Pulse 99 98 Oximetry - Lab 09/15/21 04:07 09/15/21 04:07 Most recent lab results Calcium 7.7 mg/dL (8.4-10.2) L 09/15/21 04:07 Phosphorus 4.70 mg/dL (2.5-4.5) H 09/15/21 04:07 Medications & Allergies - Medications Allergies/Adverse Reactions: Allergies No Known Allergies Allergy (Verified 09/14/21 12:33) Home Medications: Home Medications Medication Instructions Recorded Confirmed Last Taken Type Aspirin [Aspirin BABY CHEW TAB] 81 mg PO QDAY 05/27/14 09/14/21 2 Days Ago History ~01/11/21 hydrALAZINE [Apresoline TAB] 100 mg PO TID #90 tab 11/03/16 09/14/21 2 Days Ago Rx ~01/11/21 Docusate Sodium [Colace CAP] 100 mg PO DAILY 01/03/18 09/14/21 2 Days Ago History ~01/11/21 Simvastatin [Zocor] 20 mg PO BID 01/03/18 09/14/21 2 Days Ago History ~01/11/21 amLODIPine 10 mg PO DAILY 01/03/18 09/14/21 2 Days Ago History ~01/11/21 Cholecalciferol (Vitamin D3) 50,000 unit PO QWEEK 09/14/21 09/14/21 Unknown His tory [Vitamin D3 50,000UNIT CAP] Dorzolamide HCl/Timolol Maleat 1 drop OU BID 09/14/21 09/14/21 Unknown History [Dorzolamide-Timolol Eye Drops] Ferrous Gluconate [Ferrous 324 mg PO QDAY 09/14/21 09/14/21 Unknown History Gluconate 324 MG] Furosemide [Lasix TAB] 40 mg PO QDAY 09/14/21 09/14/21 Unknown History Insulin Aspart [Novolog Flexpen] 0 unit SQ TID 09/14/21 09/14/21 Unknown History Insulin Detemir [Levemir Flextouch] 0 unit SQ QHS 09/14/21 09/14/21 Unknown History Irbesartan 300 mg PO QDAY 09/14/21 09/14/21 Unknown History carvediloL [Coreg] 3.125 mg PO BID 09/14/21 09/14/21 Unknown History Active Medications: Generic Name Dose Route Start Last Admin Trade Name Freq PRN Reason Stop Dose Admin Acetaminophen 650 mg 09/14/21 04:36 Acetaminophen 325 Mg Tab PO Q4H PRN Pain MILD(1-3)/Fever >100.5/MARCANO Amlodipine Besylate 10 mg 09/14/21 18:00 09/14/21 17:00 Amlodipine 10 Mg Tab PO 10 mg DAILY KIP Administration Carvedilol 3.125 mg 09/14/21 22:00 09/14/21 21:15 Carvedilol 3.125 Mg Tab PO 3.125 mg BID KIP Administration Dextrose 0 ml 09/14/21 04:43 Dextrose 10% *Hypoglycemia IV PRN PRN Hypoglycemia Docusate Sodium 100 mg 09/15/21 10:00 Docusate Sodium 100 Mg Cap PO DAILY KIP Hydralazine HCl 100 mg 09/14/21 20:00 09/15/21 08:35 Hydralazine 100 Mg Tab PO Not Given TID KIP Piperacillin Sod/Tazobactam Sod 2.25 gm in 50 mls @ 100 mls/hr 09/14/21 14:00 09/15/21 05:09 Zosyn/Ns 2.25 Gm/50ml IV 100 mls/hr Q8HR KIP Administration Sodium Bicarbonate 75 meq/ 1,075 mls @ 100 mls/hr 09/14/21 11:00 09/14/21 23:39 Sodium Chloride IV 100 mls/hr DIRECT KIP Administration Insulin Human Lispro 0 unit 09/14/21 07:30 09/15/21 08:35 Insulin Lispro 100 Unit/Ml SUB-Q Not Given ACHS KIP Protocol Magnesium Hydroxide 30 ml 09/14/21 04:36 Magnesium Hydroxide (Mom) Oral Liqd Udc PO Q4H PRN Constipation Miscellaneous Medication 1 drop 09/14/21 22:00 Dorzolamide Hcl/Timolol Maleat [Dorzolamide-Timolol Eye Drops] OP BID KIP Morphine Sulfate 2 mg 09/14/21 04:36 Morphine 2 Mg/1 Ml Inj IV Q4H PRN Pain, Moderate (4-6) Morphine Sulfate 4 mg 09/14/21 04:36 09/14/21 05:05 Morphine 4 Mg/1 Ml Inj IV 4 mg Q4H PRN Administration Pain , Severe (7-10) Ondansetron HCl 4 mg 09/14/21 04:36 Ondansetron 4 Mg/2 Ml Inj IV Q8H PRN Nausea And Vomiting Pravastatin Sodium 40 mg 09/14/21 22:00 09/14/21 21:15 Pravastatin 40 Mg Tab PO 40 mg QHS KIP Administration Sodium Chloride 10 ml 09/14/21 10:00 09/14/21 21:16 Sodium Chloride 0.9% 10 Ml Flush Syringe IV 10 ml BID KIP Administration Sodium Chloride 10 ml 09/14/21 04:36 Sodium Chloride 0.9% 10 Ml Flush Syringe IV PRN PRN LINE FLUSH
[2021-09-15] MEDS ORDERED: SODIUM CHLORIDE 0.9% 500 ML 500 ML ONE (10:27)
[2021-09-15] MEDS: LIDOCAINE (2%) 20 MG/1 ML VIAL 50 ML MDV INFILTRATI ONE ×2 (10:55→11:30)
[2021-09-15] MEDS: fentaNYL 100 MCG/2 ML INJ ONE ×3 (10:57→11:34)
[2021-09-15] MEDS: MIDAZOLAM 2 MG/2 ML INJ ONE ×3 (10:57→11:34)
[2021-09-15] MEDS ORDERED: DEXTROSE 50% IN WATER (25GM) 50 ML SYRINGE IV PRN (11:00)
[2021-09-15] MEDS: HEPARIN 10,000 UNITS/10 ML VIAL ONE ×2 (11:13→12:03)
[2021-09-15] MEDS ORDERED: HEPARIN/NS 5000 UNIT/500ML 500 ML IR ONE (11:36)
--- NOTE | 2021-09-15 12:54 | Operative Report ---
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 Ultrasound-Guided Access of Right Axillary Artery to Bilateral Femoral Artery Bypass Graft 2. Diagnostic Angiogram of Bilateral Lower Extremities 3. Ultrasound-Guided Access Left Common Femoral Artery 4. Angioplasty and Stent of Right Femoral to Left Femoral Artery Bypass Graft with 9 x 60 EverCross Balloon and 9 x 15 cm and 9 x 10 cm Viabahn Stent Grafts 5. Closure of Left Femoral Arteriotomy with 6 Greek Angio-Seal 6. Closure of Right Axillary Artery to Bilateral Femoral Artery Bypass Graftotomy With 6 Greek Angio-Seal 7. Radiologic Supervision with Interpretation 8. Monitored Moderate Sedation (Total Anesthesia Time: 82 Minutes) Surgeon: Lloyd Montalvo M.D. Television Host: Elvia Anesthesia: Local/Monitored Moderate Sedation Total Anesthesia Time: 82 Minutes EBL: Minimal Counts: Correct Complications: None Condition: Stable Specimen: None Indication: The patient is an 85-year-old female with a history of peripheral vascular disease who has a right axillary artery to bilateral femoral artery bypass. She had a previous excision of the femorofemoral bypass and replacement with a cadaver vein. She presented with complaints of abdominal pain and was found to have aneurysmal degeneration of the graft with the largest diameter measuring approximately 11 cm. She is in need of a diagnostic angiogram and possible intervention to treat the aneurysmal dilatation with stent grafts. She was given the risk, benefits, and alternative procedures and consented to the procedure. Angiographic Findings: The diagnostic angiogram revealed that the distal portion of the axillary limb was patent without significant flow-limiting stenosis. There was approximately 80% stenosis anastomosis of the axillary limb of the graft to the femoral limb of the graft. The right proximal SFA and profunda artery were patent without evidence of flow-limiting stenosis. There was approximately 50% stenosis in the arterial inflow of the femoral to femoral bypass graft. The midportion of the graft had a large aneurysm. The distal outflow of the graft was patent with slight aneurysmal dilatation along with a patent profunda artery without significant flow-limiting stenosis. After intervention there was approximately 25% residual stenosis of the axillary limb of the graft to the femoral limb of the graft. There was less than 10% residual stenosis in the remainder of the graft. There was no evidence of endoleak or flow within the aneurysmally dilated portion of the bypass graft. Description of Procedure: The patient was brought to the [employer] and laid in supine position. After timeout was performed her right chest was prepped and draped in normal sterile fashion. Ultrasound was used to identify the axillary limb of the bypass graft, in the right chest wall, and confirm patency. Once patency was confirmed the overlying skin and soft tissue was anesthetized with lidocaine. A 21-gauge micropuncture needle was used with ultrasound guidance the end of the graft towards the outflow and a 0.018 micropuncture wire was advanced to the graft. The needle was removed and a micropuncture sheath was placed by Seldinger technique. The dilator and wire were removed and a Bentson wire was advanced into the right common femoral artery. The micropuncture sheath was removed and a 5 Greek sheath was placed by Seldinger technique. A diagnostic angiogram was performed with the previously described findings. I advanced a Navicross catheter and 0.035 glide advantage wire into the midportion of the femoral to femoral bypass graft however I was unable to advance it into the left common femoral artery. I removed the 5 Greek sheath and exchanged this for a 6 Greek 65 cm destination sheath and at this point I systemically heparinized the patient with 5000 as of heparin IV. Despite multiple attempts I was unable to cannulate the outflow of the graft so I decided to gain access in the left common femoral artery. The left groin was prepped and draped in normal sterile fashion. I used ultrasound to confirm patency of the left common femoral artery and then anesthetized the skin and soft tissue overlying the artery. An 11 blade was used to make a small stab incision and then a curved hemostat was used ultrasound guidance to bluntly dissect down to the anterior surface of the artery. I used a 21-gauge micropuncture needle with ultrasound guidance into the left common femoral artery, in retrograde fashion. I advanced the 0.018 micropuncture wire to the artery and advanced into the graft and then exchanged the needle for a micropuncture sheath. I removed the dilator and wire and advanced the Bentson wire into the graft and then placed a 5 Greek sheath by Seldinger technique, after removing the micropuncture sheath. I made attempts to cross the graft from the left common femoral access without success so I decided to snare the wire. I exchanged my 5 Greek sheath for 6 Greek sheath and then advanced a 6 Greek 6-10 mm EnSnare catheter into the midportion of the graft. I was eventually able to advance the catheter and wire into the inflow portion of the graft. I advanced the snare into position was able to snare the 0.035 floppy Glidewire from the right axillary access. I pulled the wire out through the left femoral access and then advanced the Navicross catheter over th e wire. I then exchanged the Glidewire for the advantage wire. I then performed angioplasty of the stenosis of the anastomosis using a 9 x 60 EverCross Balloon which resulted in approximately 25% residual stenosis. I then exchanged my 7 Greek sheath for 8 Greek 45 cm destination sheath and then advanced a 9 x 15 cm Viabahn Stent Graft into the common femoral artery. I deployed the stent graft and then followed this with a 9 x 10 cm Viabahn Stent Graft with approximately 3 cm overlap. This extended into the arterial inflow of the femoral to femoral bypass graft. I performed angioplasty of the an area stenosis within the arterial inflow of the bypass graft using the 9 x 60 EverCross Balloon which resulted in less than 10% residual stenosis. I performed a final angiogram that demonstrated flow through the axillary portion of the graft and into the femorofemoral bypass. This also demonstrated there was no evidence of endoleak or any flow within the aneurysmally dilated portion of the graft. At this point I pulled the advantage wire back into the graft using 6 Greek Angio-Seal to close the axillary graft access as well as the left femoral access after the respective sheaths were removed. Sterile dressings were then applied to the entry sites and the patient was transported back to her room in stable condition.
--- NOTE | 2021-09-15 13:59 | Progress Note ---
Assessment and Plan - Patient Problems (1) Preoperative cardiovascular examination Current Visit: Yes Status: Acute Plan to address problem: Patient is admitted for vascular surgery as described above. History of moderate severity nonischemic cardiomyopathy, current cardiac status is asymptomatic. Preoperative twelve-lead EKG is sinus, left ventricle hypertrophy and incomplete left bundle branch. Subjective Date of service: 09/15/21 Principal diagnosis: Peripheral arterial disease Interval history: Patient is planned for percutaneous repair of aneurysmal femoral to femoral bypass graft. No cardiac complaints, no cardiac events reported. Baseline ECG is in normal sinus rhythm, left ventricular per trophy, incomplete left bundle branch block, unchanged from previous baseline. Objective Vital Signs Temp Pulse Resp BP Pulse Ox 09/15/21 04:37 97.7 F 63 16 171/67 98 09/14/21 22:00 99 09/14/21 21:15 72 174/61 09/14/21 21:14 99.1 F 69 16 174/61 100 09/14/21 20:10 99.2 F 09/14/21 20:08 32.1 F L 64 18 171/68 99 09/14/21 16:10 98.0 F 64 18 188/74 98 - Physical Examination General: No Apparent Distress HEENT: Positive: PERRL Neck: Positive: neck supple Cardiac: Positive: Reg Rate and Rhythm Lungs: Positive: Decreased Breath Sounds Neuro: Positive: Grossly Intact Abdomen: Positive: Soft Skin: Positive: Clear Musculoskeletal: other (Status post left above-knee amputation) Extremities: Absent: edema - Labs and Meds CBC 09/15/21 Range/Units 04:07 WBC 6.0 (4.5-11.0) K/mm3 RBC 2.68 L (3.65-5.03) M/mm3 Hgb 8.3 L (10.1-14.3) gm/dl Hct 25.4 L (30.3-42.9) % Plt Count 99 L (140-440) K/mm3 Lymph # (Auto) 1.2 (1.2-5.4) K/mm3 [place] # (Auto) 0.5 (0.0-0.8) K/mm3 Eos # (Auto) 0.3 (0.0-0.4) K/mm3 Baso # (Auto) 0.1 (0.0-0.1) K/mm3 Comprehensive Metabolic Panel 09/15/21 Range/Units 04:07 Sodium 139 (137-145) mmol/L Potassium 4.1 (3.6-5.0) mmol/L Chloride 105.1 (98-107) mmol/L Carbon Dioxide 24 (22-30) mmol/L BUN 36 H (7-17) mg/dL Creatinine 3.6 H (0.6-1.2) mg/dL Glucose 122 H (65-100) mg/dL Calcium 7.7 L (8.4-10.2) mg/dL
[2021-09-15] MEDS: carvediloL 3.125 MG TAB PO SCH ×2 (17:07→22:11)
[2021-09-15] MEDS: DOCUSATE SODIUM 100 MG CAP PO SCH (17:08)
[2021-09-15] MEDS: amLODIPine 10 MG TAB PO SCH (17:08)
--- NOTE | 2021-09-15 18:09 | Electrocardiograph Report ---
[facility] Test Date: 2021-09-15 Test Time: 08:10:03 Pat Name: HANNAH MYRICK Department: Room: A367 1 Gender: F [employer] Con[employer] Helper: MIKI : [id number] Requested By: HUMA ODONNELL Order Number: [id number] Reading MD: Huma Odonnell Measurements Intervals [place] Rate: 66 P: 35 ND: 149 QRS: -4 QRSD: 132 T: 172 QT: 486 QTc: 509 Interpretive Statements Sinus rhythm Incomplete left bundle branch block Compared to ECG 01/12/2021 21:16:15 Sinus rate has increased Electronically Signed On 09-15-2021 18:08:33 EDT by Huma Odonnell
[2021-09-15] MEDS: ACETAMINOPHEN 325 MG TAB PO PRN (20:10)
[2021-09-15] MEDS: PRAVASTATIN 40 MG TAB PO SCH (22:11)
[2021-09-15] MEDS: APIXABAN 2.5 MG TAB PO SCH (22:11)
[2021-09-15 23:14] LABS: Hematocrit 22.6 % (30.3-42.9); Hemoglobin 7.6 gm/dl (10.1-14.3); Mean Corpuscular HGB Conc 34 % (30-34); Mean Corpuscular Volume 94 fl (79-97); Platelet Count 103 K/mm3 (140-440); Red Cell Distribution Width 16.6 % (13.2-15.2)
[2021-09-16] MEDS: PIPERACIL-TAZO 2.25 GM/50 ML 2.25 GM/50 ML BAG IV SCH ×3 (05:47→21:00)
[2021-09-16] MEDS: SODIUM BICARBONATE 75 MEQ in SODIUM CHLORIDE 0.45% 1000 ML 1,000 ML IV SCH ×3 (06:13→21:00)
[2021-09-16 06:43] LABS: Basophils # (Auto) 0.1 K/mm3 (0.0-0.1); Basophils % (Auto) 1.1 % (0.0-1.8); Eosinophils # (Auto) 0.2 K/mm3 (0.0-0.4); Eosinophils % (Auto) 3.8 % (0.0-4.3); Hematocrit 21.2 % (30.3-42.9); Hemoglobin 6.8 gm/dl (10.1-14.3); Lymphocytes # (Auto) 0.7 K/mm3 (1.2-5.4); Lymphocytes % (Auto) 12.9 % (13.4-35.0); Mean Corpuscular HGB Conc 32 % (30-34); Mean Corpuscular Volume 96 fl (79-97); Monocytes # (Auto) 0.5 K/mm3 (0.0-0.8); Monocytes % (Auto) 8.3 % (0.0-7.3); Platelet Count 105 K/mm3 (140-440); Red Blood Count 2.22 M/mm3 (3.65-5.03); Red Cell Distribution Width 16.4 % (13.2-15.2)
[2021-09-16 07:05] LABS: Calcium 7.9 mg/dL (8.4-10.2)
[2021-09-16] MEDS: INSULIN LISPRO 100 UNIT/ML SUB-Q SCH ×4 (07:25→21:37)
--- NOTE | 2021-09-16 08:49 | Progress Note ---
Assessment and Plan #Abdominal pain-improved #Psuedoaneurysm of L femoral anastomosis -Status post surgical correction. -large pseudoaneurysm originating from the left femoral anastomosis seen on CT of abdomen/pelvis -No extravasation from the graft/pseudoaneurysm seen #Chronic kidney disease -Some improvement in renal function. Creatinine from 3.6-3.4 -Most likely some underlying chronic kidney disease. -Nephrology following, assistance appreciated -Avoid nephrotoxins and renally dose medications #Type 2 diabetes mellitus -continue sliding scale insulin and Accu-Cheks #Anemia of Chronic Disease -Likely secondary to kidney disease -Transfused 2 units of packed red cells -We will transfuse 1 unit packed red blood cells today. #Advanced care planning -Disease education conducted, care plan discussed, diagnoses discussed, prognosis discussed, and patient acknowledges understanding with care plan -Time: +30 min Subjective Date of service: 09/16/21 Principal diagnosis: CKD Interval history: 85-year-old -Citizen Of [place] female with known history of hypertension, diabetes mellitus, distal chronic kidney disease, left above-knee amputation, history of right femoral to left femoral bypass graft presenting in the emergency room today complaining of abdominal pain. Abdominal pain is said to be more in the lower abdomen and has been having progressive swelling in the left lower abdomen. She denies any constipation and denies any diarrhea, no nausea vomiting, no chest pain or shortness of breath, no headache or dizziness and no diaphoresis. Patient denies any hematuria or dysuria. Denies any bright red blood per rectum. She denies any fever or chills. Work-up in the emergency room today, CT of the abdomen and pelvis shows: 1. Discontinuous femorofemoral crossover graft with large subcutaneous hematomas as detailed throughout the panniculus. Evaluation of active extravasation and possible secondary to lack of intravenous contrast. 09/16/2021 patient alert today. Complains of some pain at surgical site very minimal. Could not get purwick catheter secondary to body habitus around left AKA site. Objective - Constitutional Vitals: Vital Signs - 12hr 09/16/21 09/16/21 01:53 04:28 Temperature 98.8 F Pulse Rate 72 Respiratory 18 Rate Blood Pressure 155/51 O2 Sat by Pulse 99 98 Oximetry General appearance: Present: no acute distress, well-nourished - EENT Eyes: PERRL, EOM intact ENT: hearing intact, clear oral mucosa Ears: bilateral: normal - Neck Neck: supple, normal ROM - Respiratory Respiratory effort: normal Respiratory: bilateral: CTA - Breasts Breasts: normal - Cardiovascular Rhythm: regular Heart Sounds: Present: S1 & S2. Absent: gallop, rub Extremities: pulses intact, No edema, normal color, Full ROM Extremity abnormal: other (Left AKA. Bilateral edema.) - Gastrointestinal General gastrointestinal: Present: soft, non-tender, non-distended, normal bowel sounds - Genitourinary Female genitourinary: normal - Integumentary Integumentary: clear, warm, dry - Musculoskeletal Musculoskeletal: 1, strength equal bilaterally - Neurologic Neurologic: moves all extremities - Psychiatric Psychiatric: memory intact, appropriate mood/affect, intact judgment & insight - Labs CBC & Chem 7: 09/16/21 06:26 09/16/21 06:26 Labs: Abnormal lab results 09/15/21 09/15/21 09/15/21 Range/Units 16:38 22:06 22:38 RBC 2.40 L (3.65-5.03) M/mm3 Hgb 7.6 L (10.1-14.3) gm/dl Hct 22.6 L (30.3-42.9) % RDW 16.6 H (13.2-15.2) % Plt Count 103 L (140-440) K/mm3 Lymph % (Auto) (13.4-35.0) % [place] % (Auto) (0.0-7.3) % Lymph # (Auto) (1.2-5.4) K/mm3 Seg Neutrophils % (40.0-70.0) % BUN (7-17) mg/dL Creatinine (0.6-1.2) mg/dL Glucose (65-100) mg/dL POC Glucose 158 H 187 H (70-105) mg/dL Calcium (8.4-10.2) mg/dL 09/16/21 09/16/21 09/16/21 Range/Units 06:26 06:26 07:09 RBC 2.22 L (3.65-5.03) M/mm3 Hgb 6.8 L (10.1-14.3) gm/dl Hct 21.2 L (30.3-42.9) % RDW 16.4 H (13.2-15.2) % Plt Count 105 L (140-440) K/mm3 Lymph % (Auto) 12.9 L (13.4-35.0) % [place] % (Auto) 8.3 H (0.0-7.3) % Lymph # (Auto) 0.7 L (1.2-5.4) K/mm3 Seg Neutrophils % 73.9 H (40.0-70.0) % BUN 33 H (7-17) mg/dL Creatinine 3.4 H (0.6-1.2) mg/dL Glucose 130 H (65-100) mg/dL POC Glucose 144 H (70-105) mg/dL Calcium 7.9 L (8.4-10.2) mg/dL
--- NOTE | 2021-09-16 09:33 | Progress Note ---
Assessment and Plan Patient is doing well Hgb decreased to 6.8. Some related to the procedure but also dilutional secondary to i.v. fluids. Would recommend transfusing 2 units PRBC Renal function is stable Patient can likely be discharged tomorrow, from a vascular surgery standpoint, if H/H remains stable after transfusion Subjective Date of service: 09/16/21 Principal diagnosis: CKD Interval history: Patient is status post stent graft repair of pseudoaneurysm of right femoral to left femoral bypass graft. She states that she has some abdominal pain however it is improved from prior to the procedure. She has no additional complaints at this time. Objective - Constitutional Vitals: Vital Signs - 12hr 09/16/21 09/16/21 01:53 04:28 Temperature 98.8 F Pulse Rate 72 Respiratory 18 Rate Blood Pressure 155/51 O2 Sat by Pulse 99 98 Oximetry General appearance: Present: no acute distress - Neck Neck: other (right chest dressing with serosanguinous drainage, no active bleeding, no hematoma) - Respiratory Respiratory effort: normal - Cardiovascular Rhythm: regular Extremities: pulses intact (palpable femoral pulses bilaterally), abnormal (left groin dressing is clean, no active bleeding, no hematoma) - Gastrointestinal General gastrointestinal: Present: other (pseudoaneurysm palpable in pannus, nonpulsatile, mildly tender, no drainage) - Genitourinary Female genitourinary: deferred - Labs CBC & Chem 7: 09/16/21 06:26 09/16/21 06:26 Labs: Abnormal lab results 09/15/21 09/15/21 09/15/21 Range/Units 16:38 22:06 22:38 RBC 2.40 L (3.65-5.03) M/mm3 Hgb 7.6 L (10.1-14.3) gm/dl Hct 22.6 L (30.3-42.9) % RDW 16.6 H (13.2-15.2) % Plt Count 103 L (140-440) K/mm3 Lymph % (Auto) (13.4-35.0) % [place] % (Auto) (0.0-7.3) % Lymph # (Auto) (1.2-5.4) K/mm3 Seg Neutrophils % (40.0-70.0) % BUN (7-17) mg/dL Creatinine (0.6-1.2) mg/dL Glucose (65-100) mg/dL POC Glucose 158 H 187 H (70-105) mg/dL Calcium (8.4-10.2) mg/dL 09/16/21 09/16/21 09/16/21 Range/Units 06:26 06:26 07:09 RBC 2.22 L (3.65-5.03) M/mm3 Hgb 6.8 L (10.1-14.3) gm/dl Hct 21.2 L (30.3-42.9) % RDW 16.4 H (13.2-15.2) % Plt Count 105 L (140-440) K/mm3 Lymph % (Auto) 12.9 L (13.4-35.0) % [place] % (Auto) 8.3 H (0.0-7.3) % Lymph # (Auto) 0.7 L (1.2-5.4) K/mm3 Seg Neutrophils % 73.9 H (40.0-70.0) % BUN 33 H (7-17) mg/dL Creatinine 3.4 H (0.6-1.2) mg/dL Glucose 130 H (65-100) mg/dL POC Glucose 144 H (70-105) mg/dL Calcium 7.9 L (8.4-10.2) mg/dL Medications & Allergies - Medications Allergies/Adverse Reactions: Allergies No Known Allergies Allergy (Verified 09/14/21 12:33) Home Medications: Home Medications Medication Instructions Recorded Confirmed Last Taken Type Aspirin [Aspirin BABY CHEW TAB] 81 mg PO QDAY 05/27/14 09/14/21 2 Days Ago History ~01/11/21 hydrALAZINE [Apresoline TAB] 100 mg PO TID #90 tab 11/03/16 09/14/21 2 Days Ago Rx ~01/11/21 Docusate Sodium [Colace CAP] 100 mg PO DAILY 01/03/18 09/14/21 2 Days Ago History ~01/11/21 Simvastatin [Zocor] 20 mg PO BID 01/03/18 09/14/21 2 Days Ago History ~01/11/21 amLODIPine 10 mg PO DAILY 01/03/18 09/14/21 2 Days Ago History ~01/11/21 Cholecalciferol (Vitamin D3) 50,000 unit PO QWEEK 09/14/21 09/14/21 Unknown History [Vitamin D3 50,000UNIT CAP] Dorzolamide HCl/Timolol Maleat 1 drop OU BID 09/14/21 09/14/21 Unknown History [Dorzolamide-Timolol Eye Drops] Ferrous Gluconate [Ferrous 324 mg PO QDAY 09/14/21 09/14/21 Unknown History Gluconate 324 MG] Furosemide [Lasix TAB] 40 mg PO QDAY 09/14/21 09/14/21 Unknown History Insulin Aspart [Novolog Flexpen] 0 unit SQ TID 09/14/21 09/14/21 Unknown History Insulin Detemir [Levemir Flextouch] 0 unit SQ QHS 09/14/21 09/14/21 Unknown History Irbesartan 300 mg PO QDAY 09/14/21 09/14/21 Unknown History carvediloL [Coreg] 3.125 mg PO BID 09/14/21 09/14/21 Unknown History Apixaban [Eliquis] 2.5 mg PO BID #60 tab 09/16/21 Unknown Rx Pantoprazole [Protonix] 40 mg PO QDAY #30 tablet 09/16/21 Unknown Rx Active Medications: Generic Name Dose Route Start Last Admin Trade Name Freq PRN Reason Stop Dose Admin Acetaminophen 650 mg 09/14/21 04:36 09/15/21 20:10 Acetaminophen 325 Mg Tab PO 650 mg Q4H PRN Administration Pain MILD(1-3)/Fever >100.5/MARCANO Amlodipine Besylate 10 mg 09/14/21 18:00 09/15/21 17:08 Amlodipine 10 Mg Tab PO 10 mg DAILY KIP Administration Apixaban 2.5 mg 09/15/21 22:00 09/15/21 22:11 Apixaban 2.5 Mg Tab PO 2.5 mg Q12HR KIP Administration Protocol Aspirin 81 mg 09/16/21 10:00 Aspirin Ec 81 Mg Tab PO QDAY KIP Carvedilol 3.125 mg 09/14/21 22:00 09/15/21 22:11 Carvedilol 3.125 Mg Tab PO 3.125 mg BID KIP Administration Dextrose 0 ml 09/15/21 11:00 Dextrose 50% In Water (25gm) 50 Ml Syringe IV Q30MIN PRN Hypoglycemia Protocol Docusate Sodium 100 mg 09/15/21 10:00 09/15/21 17:08 Docusate Sodium 100 Mg Cap PO 100 mg DAILY KIP Administration Hydralazine HCl 100 mg 09/14/21 20:00 09/15/21 20:10 Hydralazine 100 Mg Tab PO 100 mg TID KIP Administration Piperacillin Sod/Tazobactam Sod 2.25 gm in 50 mls @ 100 mls/hr 09/14/21 14:00 09/16/21 05:47 Zosyn/Ns 2.25 Gm/50ml IV 100 mls/hr Q8HR KIP Administration Sodium Bicarbonate 75 meq/ 1,075 mls @ 100 mls/hr 09/14/21 11:00 09/16/21 06:13 Sodium Chloride IV 100 mls/hr DIRECT KIP Administration Insulin Human Lispro 0 unit 09/14/21 07:30 09/16/21 07:25 Insulin Lispro 100 Unit/Ml SUB-Q Not Given ACHS [facility] Protocol Magnesium Hydroxide 30 ml 09/14/21 04:36 Magnesium Hydroxide (Mom) Oral Liqd Udc PO Q4H PRN Constipation Miscellaneous Medication 1 drop 09/14/21 22:00 Dorzolamide Hcl/Timolol Maleat [Dorzolamide-Timolol Eye Drops] OP BID [facility] Morphine Sulfate 2 mg 09/14/21 04:36 Morphine 2 Mg/1 Ml Inj IV Q4H PRN Pain, Moderate (4-6) Morphine Sulfate 4 mg 09/14/21 04:36 09/14/21 05:05 Morphine 4 Mg/1 Ml Inj IV 4 mg Q4H PRN Administration Pain , Severe (7-10) Ondansetron HCl 4 mg 09/14/21 04:36 Ondansetron 4 Mg/2 Ml Inj IV Q8H PRN Nausea And Vomiting Pantoprazole Sodium 40 mg 09/16/21 07:30 Pantoprazole 40 Mg Tab PO QDAC [facility] Pravastatin Sodium 40 mg 09/14/21 22:00 09/15/21 22:11 Pravastatin 40 Mg Tab PO 40 mg QHS KIP Administration Sodium Chloride 10 ml 09/14/21 10:00 09/15/21 22:13 Sodium Chloride 0.9% 10 Ml Flush Syringe IV 10 ml BID KIP Administration Sodium Chloride 10 ml 09/14/21 04:36 Sodium Chloride 0.9% 10 Ml Flush Syringe IV PRN PRN LINE FLUSH
[2021-09-16] MEDS: PANTOPRAZOLE 40 MG TAB PO SCH (09:36)
[2021-09-16] MEDS: DOCUSATE SODIUM 100 MG CAP PO SCH (09:36)
[2021-09-16] MEDS: hydrALAZINE 100 MG TAB PO SCH ×3 (09:36→21:02)
[2021-09-16] MEDS: ASPIRIN EC 81 MG TAB PO SCH (09:36)
[2021-09-16] MEDS: carvediloL 3.125 MG TAB PO SCH ×2 (09:36→21:01)
[2021-09-16] MEDS: amLODIPine 10 MG TAB PO SCH (09:36)
[2021-09-16] MEDS: APIXABAN 2.5 MG TAB PO SCH ×2 (09:36→21:01)
--- NOTE | 2021-09-16 09:42 | Progress Note ---
Assessment and Plan - Patient Problems (1) Cardiomyopathy Current Visit: Yes Status: Acute (2) Accelerated hypertension Current Visit: No Status: Acute Subjective Date of service: 09/16/21 Principal diagnosis: CKD Interval history: NO CV C/O Objective Vital Signs Temp Pulse Resp BP BP Pulse Ox 09/16/21 09:36 76 167/59 09/16/21 09:35 98 F 76 16 167/59 99 09/16/21 04:28 98.8 F 72 18 155/51 98 09/16/21 01:53 99 09/15/21 20:00 99.6 F 75 18 176/64 96 09/15/21 16:41 98.6 F 76 18 202/79 98 09/15/21 14:20 97 - Physical Examination General: No Apparent Distress, Other (OW) HEENT: Positive: PERRL Neck: Positive: neck supple Cardiac: Positive: Reg Rate and Rhythm Lungs: Positive: clear to auscultation Neuro: Positive: Grossly Intact Abdomen: Positive: Soft Skin: Positive: Clear Musculoskeletal: other (Status post left above-knee amputation) Extremities: Present: Other (AKA/L). Absent: edema - Labs and Meds CBC 09/15/21 09/16/21 Range/Units 22:38 06:26 WBC 6.6 5.8 (4.5-11.0) K/mm3 RBC 2.40 L 2.22 L (3.65-5.03) M/mm3 Hgb 7.6 L 6.8 L (10.1-14.3) gm/dl Hct 22.6 L 21.2 L (30.3-42.9) % Plt Count 103 L 105 L (140-440) K/mm3 Lymph # (Auto) 0.7 L (1.2-5.4) K/mm3 [place] # (Auto) 0.5 (0.0-0.8) K/mm3 Eos # (Auto) 0.2 (0.0-0.4) K/mm3 Baso # (Auto) 0.1 (0.0-0.1) K/mm3 Comprehensive Metabolic Panel 09/16/21 Range/Units 06:26 Sodium 140 (137-145) mmol/L Potassium 4.0 (3.6-5.0) mmol/L Chloride 105.2 (98-107) mmol/L Carbon Dioxide 24 (22-30) mmol/L BUN 33 H (7-17) mg/dL Creatinine 3.4 H (0.6-1.2) mg/dL Glucose 130 H (65-100) mg/dL Calcium 7.9 L (8.4-10.2) mg/dL
--- NOTE | 2021-09-16 13:44 | Progress Note ---
Assessment and Plan Abdominal pain ALLAN vs progression of CKD Stage 4 Type 2 diabetes mellitus Anemia Plan: Renal function reviewed, SCr level was 3.4 today, yesterday's SCr level was 3.6 Pt's daughters at bedside stated pt is followed by Dr Olvera as an outpatient and has recently seen him in the office for CKD Stage [address] Olvera who mentioned his group will assume nephrology care tomorrow. Pt states she has spoken with Dr Olvera about possible need for dialysis and AVF. Pt states she is agreeable to HD in case needed. CT AP negative for hydronephrosis Renally dose meds Strict I&O Peguero Catheter: No (Purewick) Renal plan reviewed by Dr Lazo Subjective Date of service: 09/16/21 Principal diagnosis: CKD Interval history: Pt seen in bed, denies shortness of breath, nausea, vomiting, or pain. Daughter at bedside Objective - Vital Signs Vital signs: Vital Signs - 12hr 09/16/21 09/16/21 09/16/21 01:53 04:28 09:35 Temperature 98.8 F 98 F Pulse Rate 72 76 Respiratory 18 16 Rate Blood Pressure 155/51 Blood Pressure 167/59 [Right] O2 Sat by Pulse 99 98 99 Oximetry 09/16/21 09:36 Temperature Pulse Rate 76 Respiratory Rate Blood Pressure 167/59 Blood Pressure [Right] O2 Sat by Pulse Oximetry - General Appearance General appearance: well-developed EENT: ATNC Neck: no JVD Respiratory: Present: Decreased Breath Sounds Cardiology: regular, S1S2 Gastrointestinal: normoactive bowel sounds Integumentary: warm and dry Neurologic: alert and oriented x3 Musculoskeletal: other (Left AKA noted) Psychiatric: cooperative - Lab 09/16/21 06:26 09/16/21 06:26 Most recent lab results Calcium 7.9 mg/dL (8.4-10.2) L 09/16/21 06:26 Phosphorus 4.70 mg/dL (2.5-4.5) H 09/15/21 04:07 Medications & Allergies - Medications Allergies/Adverse Reactions: Allergies No Known Allergies Allergy (Verified 09/14/21 12:33) Home Medications: Home Medications Medication Instructions Recorded Confirmed Last Taken Type Aspirin [Aspirin BABY CHEW TAB] 81 mg PO QDAY 05/27/14 09/14/21 2 Days Ago History ~01/11/21 hydrALAZINE [Apresoline TAB] 100 mg PO TID #90 tab 11/03/16 09/14/21 2 Days Ago Rx ~01/11/21 Docusate Sodium [Colace CAP] 100 mg PO DAILY 01/03/18 09/14/21 2 Days Ago History ~01/11/21 Simvastatin [Zocor] 20 mg PO BID 01/03/18 09/14/21 2 Days Ago History ~01/11/21 amLODIPine 10 mg PO DAILY 01/03/18 09/14/21 2 Days Ago History ~01/11/21 Cholecalciferol (Vitamin D3) 50,000 unit PO QWEEK 09/14/21 09/14/21 Unknown History [Vitamin D3 50,000UNIT CAP] Dorzolamide HCl/Timolol Maleat 1 drop OU BID 09/14/21 09/14/21 Unknown History [Dorzolamide-Timolol Eye Drops] Ferrous Gluconate [Ferrous 324 mg PO QDAY 09/14/21 09/14/21 Unknown History Gluconate 324 MG] Furosemide [Lasix TAB] 40 mg PO QDAY 09/14/21 09/14/21 Unknown History Insulin Aspart [Novolog Flexpen] 0 unit SQ TID 09/14/21 09/14/21 Unknown History Insulin Detemir [Levemir Flextouch] 0 unit SQ QHS 09/14/21 09/14/21 Unknown History Irbesartan 300 mg PO QDAY 09/14/21 09/14/21 Unknown History carvediloL [Coreg] 3.125 mg PO BID 09/14/21 09/14/21 Unknown History Apixaban [Eliquis] 2.5 mg PO BID #60 tab 09/16/21 Unknown Rx Pantoprazole [Protonix] 40 mg PO QDAY #30 tablet 09/16/21 Unknown Rx Active Medications: Generic Name Dose Route Start Last Admin Trade Name Freq PRN Reason Stop Dose Admin Acetaminophen 650 mg 09/14/21 04:36 09/15/21 20:10 Acetaminophen 325 Mg Tab PO 650 mg Q4H PRN Administration Pain MILD(1-3)/Fever >100.5/MARCANO Amlodipine Besylate 10 mg 09/14/21 18:00 09/16/21 09:36 Amlodipine 10 Mg Tab PO 10 mg DAILY KIP Administration Apixaban 2.5 mg 04/01/22 22:00 09/16/21 09:36 Apixaban 2.5 Mg Tab PO 2.5 mg Q12HR KIP Administration Protocol Aspirin 81 mg 09/16/21 10:00 09/16/21 09:36 Aspirin Ec 81 Mg Tab PO 81 mg QDAY KIP Administration Carvedilol 3.125 mg 09/14/21 22:00 09/16/21 09:36 Carvedilol 3.125 Mg Tab PO 3.125 mg BID KIP Administration Dextrose 0 ml 09/15/21 11:00 Dextrose 50% In Water (25gm) 50 Ml Syringe IV Q30MIN PRN Hypoglycemia Protocol Docusate Sodium 100 mg 09/15/21 10:00 09/16/21 09:36 Docusate Sodium 100 Mg Cap PO 100 mg DAILY KIP Administration Hydralazine HCl 100 mg 09/14/21 20:00 09/16/21 09:36 Hydralazine 100 Mg Tab PO 100 mg TID KIP Administration Piperacillin Sod/Tazobactam Sod 2.25 gm in 50 mls @ 100 mls/hr 09/14/21 14:00 09/16/21 13:37 Zosyn/Ns 2.25 Gm/50ml IV 100 mls/hr Q8HR KIP Administration Sodium Bicarbonate 75 meq/ 1,075 mls @ 100 mls/hr 09/14/21 11:00 09/16/21 06:13 Sodium Chloride IV 100 mls/hr DIRECT KIP Administration Insulin Human Lispro 0 unit 09/14/21 07:30 09/16/21 11:30 Insulin Lispro 100 Unit/Ml SUB-Q 2 unit ACHS KIP Administration Protocol Magnesium Hydroxide 30 ml 09/14/21 04:36 Magnesium Hydroxide (Mom) Oral Liqd Udc PO Q4H PRN Constipation Miscellaneous Medication 1 drop 09/14/21 22:00 Dorzolamide Hcl/Timolol Maleat [Dorzolamide-Timolol Eye Drops] OP BID KIP Morphine Sulfate 2 mg 09/14/21 04:36 Morphine 2 Mg/1 Ml Inj IV Q4H PRN Pain, Moderate (4-6) Morphine Sulfate 4 mg 09/14/21 04:36 09/14/21 05:05 Morphine 4 Mg/1 Ml Inj IV 4 mg Q4H PRN Administration Pain , Severe (7-10) Ondansetron HCl 4 mg 09/14/21 04:36 Ondansetron 4 Mg/2 Ml Inj IV Q8H PRN Nausea And Vomiting Pantoprazole Sodium 40 mg 09/16/21 07:30 09/16/21 09:36 Pantoprazole 40 Mg Tab PO 40 mg QDAC KIP Administration Pravastatin Sodium 40 mg 09/14/21 22:00 09/15/21 22:11 Pravastatin 40 Mg Tab PO 40 mg QHS KIP Administration Sodium Chloride 10 ml 09/14/21 10:00 09/16/21 09:37 Sodium Chloride 0.9% 10 Ml Flush Syringe IV 10 ml BID KIP Administration Sodium Chloride 10 ml 09/14/21 04:36 Sodium Chloride 0.9% 10 Ml Flush Syringe IV PRN PRN LINE FLUSH
[2021-09-16] MEDS ORDERED: SODIUM CHLORIDE 0.9% 500 ML 500 ML IV ONE ×2 (15:00→21:40)
[2021-09-16] MEDS: PRAVASTATIN 40 MG TAB PO SCH (21:02)
[2021-09-17] MEDS: PIPERACIL-TAZO 2.25 GM/50 ML 2.25 GM/50 ML BAG IV SCH ×3 (05:17→21:09)
[2021-09-17 06:28] LABS: Calcium 7.7 mg/dL (8.4-10.2)
[2021-09-17] MEDS: INSULIN LISPRO 100 UNIT/ML SUB-Q SCH ×4 (07:30→21:09)
--- NOTE | 2021-09-17 09:45 | Progress Note ---
Assessment and Plan #Abdominal pain-improved #Psuedoaneurysm of L femoral anastomosis -presents for surgical correction vascular surgery -large pseudoaneurysm originating from the left femoral anastomosis seen on CT o f abdomen/pelvis -No extravasation from the graft/pseudoaneurysm seen #Chronic kidney disease -Some improvement in renal function. Creatinine from 3.7 now 3.4 cont to improve -Most likely some underlying chronic kidney disease. -Nephrology following, assistance appreciated -Avoid nephrotoxins and renally dose medications #Type 2 diabetes mellitus -continue sliding scale insulin and Accu-Cheks #Anemia of Chronic Disease -Likely secondary to kidney disease -Transfused 2 units of packed red cells -We will transfuse 1 unit packed red blood cells today. #Advanced care planning -Disease education conducted, care plan discussed, diagnoses discussed, prognosis discussed, and patient acknowledges understanding with care plan Will most likely need further placement -Time: +15 min Subjective Date of service: 09/17/21 Principal diagnosis: CKD Interval history: 85-year-old -[place] female with known history of hypertension, diabetes mellitus, distal chronic kidney disease, left above-knee amputation, history of right femoral to left femoral bypass graft presenting in the emergency room today complaining of abdominal pain. Abdominal pain is said to be more in the lower abdomen and has been having progressive swelling in the left lower abdomen. She denies any constipation and denies any diarrhea, no nausea vomiting, no chest pain or shortness of breath, no headache or dizziness and no diaphoresis. Patient denies any hematuria or dysuria. Denies any bright red blood per rectum. She denies any fever or chills. Work-up in the emergency room today, CT of the abdomen and pelvis shows: 1. Discontinuous femorofemoral crossover graft with large subcutaneous hematomas as detailed throughout the panniculus. Evaluation of active extravasation and possible secondary to lack of intravenous contrast. 09/16/2021 patient alert today. Complains of some pain at surgical site very minimal. Could not get purwick catheter secondary to body habitus around left AKA site. 09/17/2021 Patient tolerated transfusion well. No new events overnight. Hospital course complicated by suboptimal hypertension Objective - Constitutional Vitals: Vital Signs - 12hr 09/16/21 09/16/21 09/16/21 21:54 21:56 22:15 Temperature 98.5 F 99.4 F Pulse Rate 82 Respiratory 20 18 Rate Blood Pressure 140/51 O2 Sat by Pulse 95 100 Oximetry 09/16/21 09/16/21 09/16/21 22:16 22:55 23:38 Temperature 98.8 F Pulse Rate 72 68 74 Respiratory 18 Rate Blood Pressure 143/52 141/51 163/55 O2 Sat by Pulse 100 98 100 Oximetry 09/16/21 09/16/21 09/17/21 23:41 23:56 00:07 Temperature 98.2 F 98.6 F Pulse Rate 73 Respiratory Rate Blood Pressure O2 Sat by Pulse 100 Oximetry 09/17/21 09/17/21 09/17/21 02:00 04:54 07:25 Temperature 98.3 F Pulse Rate 77 Respiratory 18 Rate Blood Pressure 149/59 O2 Sat by Pulse 96 98 98 Oximetry General appearance: Present: no acute distress - EENT Eyes: PERRL - Neck Neck: supple, normal ROM - Respiratory Respiratory effort: normal Respiratory: bilateral: CTA - Cardiovascular Rhythm: regular Extremity abnormal: other (Left AKA diminished pulses at baseline. Some edema.) - Gastrointestinal General gastrointestinal: Present: soft, non-tender, non-distended, normal bowel sounds - Integumentary Integumentary: clear, warm, dry - Musculoskeletal Musculoskeletal: generalized weakness - Neurologic Neurologic: moves all extremities - Labs CBC & Chem 7: 09/16/21 06:26 09/17/21 05:31 Labs: Abnormal lab results 09/14/21 09/16/21 09/16/21 Range/Units 02:35 12:09 16:43 BUN (7-17) mg/dL Creatinine (0.6-1.2) mg/dL Glucose (65-100) mg/dL POC Glucose 186 H 179 H (70-105) mg/dL Calcium (8.4-10.2) mg/dL Crossmatch See Detail 09/16/21 09/17/21 Range/Units 21:30 05:31 BUN 28 H (7-17) mg/dL Creatinine 3.3 H (0.6-1.2) mg/dL Glucose 122 H (65-100) mg/dL POC Glucose 146 H (70-105) mg/dL Calcium 7.7 L (8.4-10.2) mg/dL Crossmatch
--- NOTE | 2021-09-17 09:45 | Progress Note ---
Assessment and Plan - Patient Problems (1) Cardiomyopathy Current Visit: Yes Status: Acute (2) Accelerated hypertension Current Visit: No Status: Acute Subjective Date of service: 09/17/21 Principal diagnosis: CKD Interval history: NO CV C/O Objective Vital Signs Temp Pulse Resp BP Pulse Ox 09/17/21 07:25 98 09/17/21 04:54 98.3 F 77 18 149/59 98 09/17/21 02:00 96 09/17/21 00:07 98.6 F 09/16/21 23:56 73 100 09/16/21 23:41 98.2 F 09/16/21 23:38 74 163/55 100 09/16/21 22:55 98.8 F 68 18 141/51 98 09/16/21 22:16 72 143/52 100 09/16/21 22:15 99.4 F 18 100 09/16/21 21:56 98.5 F 09/16/21 21:54 82 20 140/51 95 09/16/21 21:01 82 157/57 09/16/21 20:58 157/57 09/16/21 16:08 99.4 F 77 18 141/52 97 09/16/21 14:00 98 - Physical Examination General: No Apparent Distress, Other (OW) HEENT: Positive: PERRL Neck: Positive: neck supple Cardiac: Positive: Reg Rate and Rhythm Lungs: Positive: clear to auscultation Neuro: Positive: Grossly Intact Abdomen: Positive: Soft Skin: Positive: Clear Musculoskeletal: other (Status post left above-knee amputation) Extremities: Present: Other (AKA/L). Absent: edema - Labs and Meds Comprehensive Metabolic Panel 09/17/21 Range/Units 05:31 Sodium 139 (137-145) mmol/L Potassium 3.8 (3.6-5.0) mmol/L Chloride 103.6 (98-107) mmol/L Carbon Dioxide 25 (22-30) mmol/L BUN 28 H (7-17) mg/dL Creatinine 3.3 H (0.6-1.2) mg/dL Glucose 122 H (65-100) mg/dL Calcium 7.7 L (8.4-10.2) mg/dL
[2021-09-17] MEDS: carvediloL 3.125 MG TAB PO SCH ×2 (10:09→21:07)
[2021-09-17] MEDS: DOCUSATE SODIUM 100 MG CAP PO SCH (10:09)
[2021-09-17] MEDS: hydrALAZINE 100 MG TAB PO SCH ×3 (10:09→20:38)
[2021-09-17] MEDS: APIXABAN 2.5 MG TAB PO SCH ×2 (10:09→21:08)
[2021-09-17] MEDS: amLODIPine 10 MG TAB PO SCH (10:10)
[2021-09-17] MEDS: ASPIRIN EC 81 MG TAB PO SCH (10:10)
[2021-09-17] MEDS: PANTOPRAZOLE 40 MG TAB PO SCH (10:10)
--- NOTE | 2021-09-17 14:23 | Progress Note ---
Assessment and Plan POD#2 s/p endovascular repair of right femoral to left femoral pseudoaneurym Okay to discharge, from vascular surgery standpoint, when medically stable Follow up in the office in 2 weeks Subjective Date of service: 09/17/21 Principal diagnosis: CKD Interval history: Patient states her pain is significantly improved. She has no complaints at thi s time. Objective - Constitutional Vitals: Vital Signs - 12hr 09/17/21 09/17/21 09/17/21 04:54 07:25 10:08 Temperature 98.3 F 98.7 F Pulse Rate 77 70 Respiratory 18 20 Rate Blood Pressure 149/59 Blood Pressure 165/63 [Right] O2 Sat by Pulse 98 98 100 Oximetry 09/17/21 09/17/21 10:09 11:36 Temperature 98.5 F Pulse Rate 70 67 Respiratory 18 Rate Blood Pressure 165/63 145/56 Blood Pressure [Right] O2 Sat by Pulse 98 Oximetry General appearance: Present: no acute distress - Neck Neck: supple, other (Right chest dressing is clean and intact, without drainage) - Respiratory Respiratory effort: normal Extremities: normal temperature (Bilateral lower extremities are wam and well perfused), abnormal (Left groin dressing is clean and inatct, without drainage or hematoma) - Gastrointestinal General gastrointestinal: Present: soft, non-tender (no tenderness with paplaption of the pseudoaneurysm), non-distended - Labs CBC & Chem 7: 09/16/21 06:26 09/17/21 05:31 Labs: Abnormal lab results 09/14/21 09/16/21 09/16/21 Range/Units 02:35 12:09 16:43 BUN (7-17) mg/dL Creatinine (0.6-1.2) mg/dL Glucose (65-100) mg/dL POC Glucose 186 H 179 H (70-105) mg/dL Calcium (8.4-10.2) mg/dL Crossmatch See Detail 09/16/21 09/17/21 09/17/21 Range/Units 21:30 05:31 11:13 BUN 28 H (7-17) mg/dL Creatinine 3.3 H (0.6-1.2) mg/dL Glucose 122 H (65-100) mg/dL POC Glucose 146 H 142 H (70-105) mg/dL Calcium 7.7 L (8.4-10.2) mg/dL Crossmatch Medications & Allergies - Medications Allergies/Adverse Reactions: Allergies No Known Allergies Allergy (Verified 09/14/21 12:33) Home Medications: Home Medications Medication Instructions Recorded Confirmed Last Taken Type Aspirin [Aspirin BABY CHEW TAB] 81 mg PO QDAY 05/27/14 09/14/21 2 Days Ago History ~01/11/21 hydrALAZINE [Apresoline TAB] 100 mg PO TID #90 tab 11/03/16 09/14/21 2 Days Ago Rx ~01/11/21 Docusate Sodium [Colace CAP] 100 mg PO DAILY 01/03/18 09/14/21 2 Days Ago History ~01/11/21 Simvastatin [Zocor] 20 mg PO BID 01/03/18 09/14/21 2 Days Ago History ~01/11/21 amLODIPine 10 mg PO DAILY 01/03/18 09/14/21 2 Days Ago History ~01/11/21 Cholecalciferol (Vitamin D3) 50,000 unit PO QWEEK 09/14/21 09/14/21 Unknown History [Vitamin D3 50,000UNIT CAP] Dorzolamide HCl/Timolol Maleat 1 drop OU BID 09/14/21 09/14/21 Unknown History [Dorzolamide-Timolol Eye Drops] Ferrous Gluconate [Ferrous 324 mg PO QDAY 09/14/21 09/14/21 Unknown History Gluconate 324 MG] Furosemide [Lasix TAB] 40 mg PO QDAY 09/14/21 09/14/21 Unknown History Insulin Aspart [Novolog Flexpen] 0 unit SQ TID 09/14/21 09/14/21 Unknown History Insulin Detemir [Levemir Flextouch] 0 unit SQ QHS 09/14/21 09/14/21 Unknown History Irbesartan 300 mg PO QDAY 09/14/21 09/14/21 Unknown History carvediloL [Coreg] 3.125 mg PO BID 09/14/21 09/14/21 Unknown History Apixaban [Eliquis] 2.5 mg PO BID #60 tab 09/16/21 Unknown Rx Pantoprazole [Protonix] 40 mg PO QDAY #30 tablet 09/16/21 Unknown Rx Active Medications: Generic Name Dose Route Start Last Admin Trade Name Freq PRN Reason Stop Dose Admin Acetaminophen 650 mg 09/14/21 04:36 09/15/21 20:10 Acetaminophen 325 Mg Tab PO 650 mg Q4H PRN Administration Pain MILD(1-3)/Fever >100.5/MARCANO Amlodipine Besylate 10 mg 09/14/21 18:00 09/17/21 10:10 Amlodipine 10 Mg Tab PO 10 mg DAILY KIP Administration Apixaban 2.5 mg 09/15/21 22:00 09/17/21 10:09 Apixaban 2.5 Mg Tab PO 2.5 mg Q12HR KIP Administration Protocol Aspirin 81 mg 09/16/21 10:00 09/17/21 10:10 Aspirin Ec 81 Mg Tab PO 81 mg QDAY KIP Administration Carvedilol 6.25 mg 09/17/21 10:00 09/17/21 10:09 Carvedilol 3.125 Mg Tab PO 6.25 mg BID KIP Administration Dextrose 0 ml 09/15/21 11:00 Dextrose 50% In Water (25gm) 50 Ml Syringe IV Q30MIN PRN Hypoglycemia Protocol Docusate Sodium 100 mg 09/15/21 10:00 09/17/21 10:09 Docusate Sodium 100 Mg Cap PO 100 mg DAILY KIP Administration Hydralazine HCl 100 mg 09/14/21 20:00 09/17/21 13:53 Hydralazine 100 Mg Tab PO 100 mg TID KIP Administration Piperacillin Sod/Tazobactam Sod 2.25 gm in 50 mls @ 100 mls/hr 09/14/21 14:00 09/17/21 13:52 Zosyn/Ns 2.25 Gm/50ml IV 100 mls/hr Q8HR KIP Administration Sodium Bicarbonate 75 meq/ 1,075 mls @ 100 mls/hr 09/14/21 11:00 09/16/21 21:00 Sodium Chloride IV 100 mls/hr DIRECT KIP Administration Insulin Human Lispro 0 unit 09/14/21 07:30 09/17/21 11:30 Insulin Lispro 100 Unit/Ml SUB-Q Not Given ACHS KIP Protocol Magnesium Hydroxide 30 ml 09/14/21 04:36 Magnesium Hydroxide (Mom) Oral Liqd Udc PO Q4H PRN Constipation Miscellaneous Medication 1 drop 09/14/21 22:00 Dorzolamide Hcl/Timolol Maleat [Dorzolamide-Timolol Eye Drops] OP BID KIP Morphine Sulfate 2 mg 09/14/21 04:36 09/17/21 10:19 Morphine 2 Mg/1 Ml Inj IV 2 mg Q4H PRN Administration Pain, Moderate (4-6) Morphine Sulfate 4 mg 09/14/21 04:36 09/14/21 05:05 Morphine 4 Mg/1 Ml Inj IV 4 mg Q4H PRN Administration Pain , Severe (7-10) Ondansetron HCl 4 mg 09/14/21 04:36 Ondansetron 4 Mg/2 Ml Inj IV Q8H PRN Nausea And Vomiting Pantoprazole Sodium 40 mg 09/16/21 07:30 09/17/21 10:10 Pantoprazole 40 Mg Tab PO 40 mg QDAC KIP Administration Pravastatin Sodium 40 mg 09/14/21 22:00 09/16/21 21:02 Pravastatin 40 Mg Tab PO 40 mg QHS KIP Administration Sodium Chloride 10 ml 09/14/21 10:00 09/17/21 10:10 Sodium Chloride 0.9% 10 Ml Flush Syringe IV 10 ml BID KIP Administration Sodium Chloride 10 ml 09/14/21 04:36 Sodium Chloride 0.9% 10 Ml Flush Syringe IV PRN PRN LINE FLUSH
[2021-09-17] MEDS: SODIUM BICARBONATE 75 MEQ in SODIUM CHLORIDE 0.45% 1000 ML 1,000 ML IV SCH (18:29)
[2021-09-17] MEDS: PRAVASTATIN 40 MG TAB PO SCH (21:08)
--- NOTE | 2021-09-17 22:24 | Progress Note ---
Assessment and Plan - Patient Problems (1) Chronic kidney disease Current Visit: Yes Status: Acute Qualifiers: Chronic kidney disease stage: stage 4 (severe) Qualified Code(s): N18.4 - Chronic kidney disease, stage 4 (severe) Plan to address problem: Patient with known history of CKD stage for with baseline Cr around 2.7 - 3.2mg/dl, she follows up with Dr Olvera in our group. Cont supportive care for CKD avoid nephrotoxins, NSAIDs, IV contrast. Patient without acute indications for renal replacement therapy at present, once anemia is stabilized pt can be discharged from renal stand point with outpatient CKD follow up in 1-2 weeks (2) Abdominal pain Current Visit: Yes Status: Acute Qualifiers: Abdominal location: left upper quadrant Qualified Code(s): R10.12 - Left upper quadrant pain Plan to address problem: s/p endovascular repair of right femoral to left femoral pseudoaneurym. Follow vascular surgery recommendations. (3) Type 2 diabetes mellitus Current Visit: No Status: Acute Plan to address problem: diabetes management as per primary attending (4) Anemia in chronic illness Current Visit: Yes Status: Acute Plan to address problem: check iron panel/ferritin level, transfuse with PRBC to target hb > 7 Subjective Date of service: 09/17/21 Principal diagnosis: CKD Interval history: Patient is awake, alert, in no acute respiratory distress, denies CP, SOB, palpitations, dysuria. Objective - Vital Signs Vital signs: Vital Signs - 12hr 09/17/21 09/17/21 09/17/21 11:36 16:34 19:40 Temperature 98.5 F 98.5 F 98.6 F Pulse Rate 67 72 74 Respiratory 18 18 18 Rate Blood Pressure 145/56 170/62 169/66 O2 Sat by Pulse 98 95 96 Oximetry 09/17/21 21:07 Temperature Pulse Rate 74 Respiratory Rate Blood Pressure 169/66 O2 Sat by Pulse Oximetry EENT: ATNC, PERRL, mucous membranes moist Neck: no JVD Respiratory: Present: Clear to Ascultation Cardiology: regular, S1S2 Gastrointestinal: normoactive bowel sounds Integumentary: no rash Neurologic: no focal deficit, alert and oriented x3, strength 5/5, CN 3-12 intact Psychiatric: mood/affect appropriate, cooperative - Lab 09/16/21 06:26 09/17/21 05:31 Most recent lab results Calcium 7.7 mg/dL (8.4-10.2) L 09/17/21 05:31 Phosphorus 3.20 mg/dL (2.5-4.5) 09/17/21 05:31 Medications & Allergies - Medications Allergies/Adverse Reactions: Allergies No Known Allergies Allergy (Verified 09/14/21 12:33) Home Medications: Home Medications Medication Instructions Recorded Confirmed Last Taken Type Aspirin [Aspirin BABY CHEW TAB] 81 mg PO QDAY 05/27/14 09/14/21 2 Days Ago History ~01/11/21 hydrALAZINE [Apresoline TAB] 100 mg PO TID #90 tab 11/03/16 09/14/21 2 Days Ago Rx ~01/11/21 Docusate Sodium [Colace CAP] 100 mg PO DAILY 01/03/18 09/14/21 2 Days Ago History ~01/11/21 Simvastatin [Zocor] 20 mg PO BID 01/03/18 09/14/21 2 Days Ago History ~01/11/21 amLODIPine 10 mg PO DAILY 01/03/18 09/14/21 2 Days Ago History ~01/11/21 Cholecalciferol (Vitamin D3) 50,000 unit PO QWEEK 09/14/21 09/14/21 Unknown History [Vitamin D3 50,000UNIT CAP] Dorzolamide HCl/Timolol Maleat 1 drop OU BID 09/14/21 09/14/21 Unknown History [Dorzolamide-Timolol Eye Drops] Ferrous Gluconate [Ferrous 324 mg PO QDAY 09/14/21 09/14/21 Unknown History Gluconate 324 MG] Furosemide [Lasix TAB] 40 mg PO QDAY 09/14/21 09/14/21 Unknown History Insulin Aspart [Novolog Flexpen] 0 unit SQ TID 09/14/21 09/14/21 Unknown History Insulin Detemir [Levemir Flextouch] 0 unit SQ QHS 09/14/21 09/14/21 Unknown History Irbesartan 300 mg PO QDAY 09/14/21 09/14/21 Unknown History carvediloL [Coreg] 3.125 mg PO BID 09/14/21 09/14/21 Unknown History Apixaban [Eliquis] 2.5 mg PO BID #60 tab 09/16/21 Unknown Rx Pantoprazole [Protonix] 40 mg PO QDAY #90 tablet 09/17/21 Unknown Rx Active Medications: Generic Name Dose Route Start Last Admin Trade Name Freq PRN Reason Stop Dose Admin Acetaminophen 650 mg 09/14/21 04:36 09/15/21 20:10 Acetaminophen 325 Mg Tab PO 650 mg Q4H PRN Administration Pain MILD(1-3)/Fever >100.5/MARCANO Amlodipine Besylate 10 mg 09/14/21 18:00 09/17/21 10:10 Amlodipine 10 Mg Tab PO 10 mg DAILY KIP Administration Apixaban 2.5 mg 09/15/21 22:00 09/17/21 21:08 Apixaban 2.5 Mg Tab PO 2.5 mg Q12HR KIP Administration Protocol Aspirin 81 mg 09/16/21 10:00 09/17/21 10:10 Aspirin Ec 81 Mg Tab PO 81 mg QDAY KIP Administration Carvedilol 6.25 mg 09/17/21 10:00 09/17/21 21:07 Carvedilol 3.125 Mg Tab PO 6.25 mg BID KIP Administration Dextrose 0 ml 09/15/21 11:00 Dextrose 50% In Water (25gm) 50 Ml Syringe IV Q30MIN PRN Hypoglycemia Protocol Docusate Sodium 100 mg 09/15/21 10:00 09/17/21 10:09 Docusate Sodium 100 Mg Cap PO 100 mg DAILY KIP Administration Hydralazine HCl 100 mg 09/14/21 20:00 09/17/21 20:38 Hydralazine 100 Mg Tab PO 100 mg TID KIP Administration Piperacillin Sod/Tazobactam Sod 2.25 gm in 50 mls @ 100 mls/hr 09/14/21 14:00 09/17/21 21:09 Zosyn/Ns 2.25 Gm/50ml IV 100 mls/hr Q8HR KIP Administration Sodium Bicarbonate 75 meq/ 1,075 mls @ 100 mls/hr 09/14/21 11:00 09/17/21 18:29 Sodium Chloride IV 100 mls/hr DIRECT KIP Administration Insulin Human Lispro 0 unit 09/14/21 07:30 09/17/21 21:09 Insulin Lispro 100 Unit/Ml SUB-Q 2 unit ACHS KIP Administration Protocol Magnesium Hydroxide 30 ml 09/14/21 04:36 Magnesium Hydroxide (Mom) Oral Liqd Udc PO Q4H PRN Constipation Miscellaneous Medication 1 drop 09/14/21 22:00 Dorzolamide Hcl/Timolol Maleat [Dorzolamide-Timolol Eye Drops] OP BID KIP Morphine Sulfate 2 mg 09/14/21 04:36 09/17/21 10:19 Morphine 2 Mg/1 Ml Inj IV 2 mg Q4H PRN Administration Pain, Moderate (4-6) Morphine Sulfate 4 mg 09/14/21 04:36 09/14/21 05:05 Morphine 4 Mg/1 Ml Inj IV 4 mg Q4H PRN Administration Pain , Severe (7-10) Ondansetron HCl 4 mg 09/14/21 04:36 Ondansetron 4 Mg/2 Ml Inj IV Q8H PRN Nausea And Vomiting Pantoprazole Sodium 40 mg 09/16/21 07:30 09/17/21 10:10 Pantoprazole 40 Mg Tab PO 40 mg QDAC KIP Administration Pravastatin Sodium 40 mg 09/14/21 22:00 09/17/21 21:08 Pravastatin 40 Mg Tab PO 40 mg QHS KIP Administration Sodium Chloride 10 ml 09/14/21 10:00 09/17/21 21:08 Sodium Chloride 0.9% 10 Ml Flush Syringe IV 10 ml BID KIP Administration Sodium Chloride 10 ml 09/14/21 04:36 Sodium Chloride 0.9% 10 Ml Flush Syringe IV PRN PRN LINE FLUSH
[2021-09-18] MEDS: PIPERACIL-TAZO 2.25 GM/50 ML 2.25 GM/50 ML BAG IV SCH ×3 (05:03→21:52)
[2021-09-18 06:14] LABS: Basophils # (Auto) 0.1 K/mm3 (0.0-0.1); Basophils % (Auto) 1.7 % (0.0-1.8); Eosinophils # (Auto) 0.4 K/mm3 (0.0-0.4); Eosinophils % (Auto) 7.5 % (0.0-4.3); Hematocrit 25.2 % (30.3-42.9); Hemoglobin 8.7 gm/dl (10.1-14.3); Lymphocytes % (Auto) 17.4 % (13.4-35.0); Mean Corpuscular HGB Conc 35 % (30-34); Mean Corpuscular Volume 93 fl (79-97); Monocytes # (Auto) 0.4 K/mm3 (0.0-0.8); Monocytes % (Auto) 7.8 % (0.0-7.3); Platelet Count 136 K/mm3 (140-440); Red Blood Count 2.71 M/mm3 (3.65-5.03); Red Cell Distribution Width 15.7 % (13.2-15.2)
[2021-09-18 06:15] LABS: Calcium 8.2 mg/dL (8.4-10.2)
[2021-09-18] MEDS: PANTOPRAZOLE 40 MG TAB PO SCH (07:30)
[2021-09-18] MEDS: INSULIN LISPRO 100 UNIT/ML SUB-Q SCH ×4 (07:30→21:54)
[2021-09-18] MEDS: hydrALAZINE 100 MG TAB PO SCH ×3 (08:00→19:34)
--- NOTE | 2021-09-18 08:35 | Progress Note ---
Assessment and Plan #Abdominal pain-improved #Psuedoaneurysm of L femoral anastomosis -Spoke to Dr. Cruz in detail explained risk and outcomes of patient surgical procedure. Follow-up ultrasound today for reevaluation and discharge planning -presents for surgical correction vascular surgery. Endovascular repair of right femoral to left femoral pseudoaneurysm -large pseudoaneurysm originating from the left femoral anastomosis seen on CT of abdomen/pelvis -If without any further recommendations from vascular stable to discharge back to nursing facility. -No extravasation from the graft/pseudoaneurysm seen #Chronic kidney disease -Some improvement in renal function. Creatinine from 3.7 now 3.2 cont to improve -She has underlying chronic kidney disease baseline 2.7-3.2 she is about that now. Has follow-up with 2 wee -Avoid nephrotoxins and renally dose medications #Type 2 diabetes mellitus -continue sliding scale insulin and Accu-Cheks -Continue present management. #Anemia of Chronic Disease -Likely secondary to kidney disease -Transfused 2 units of packed red cells -We will transfuse 1 unit packed red blood cells today. 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 Abdominal pain is said to be more in the lower abdomen and has been having progressive swelling in the left lower abdomen. She denies any constipation and denies any diarrhea, no nausea vom iting, no chest pain or shortness of breath, no headache or dizziness and no diaphoresis. Patient denies any hematuria or dysuria. Denies any bright red blood per rectum. She denies any fever or chills. Work-up in the emergency room today, CT of the abdomen and pelvis shows: 1. Discontinuous femorofemoral crossover graft with large subcutaneous hematomas as detailed throughout the panniculus. Evaluation of active extravasation and possible secondary to lack of intravenous contrast. 09/16/2021 patient alert today. Complains of some pain at surgical site very minimal. Could not get purwick catheter secondary to body habitus around left AKA site. 09/17/2021 Patient tolerated transfusion well. No new events overnight. Hospital course complicated by suboptimal hypertension 09/18/2021 Patient no new events over p.m. Reevaluated for anemia H&H remained stable. Blood pressure much better control since dose titration Await any further recommendations from vascular. Objective - Constitutional Vitals: Vital Signs - 12hr 09/17/21 09/18/21 09/18/21 21:07 05:05 06:00 Temperature 98.0 F Pulse Rate 74 73 Respiratory 18 18 Rate Blood Pressure 169/66 156/67 O2 Sat by Pulse 97 98 Oximetry General appearance: Present: no acute distress - EENT Eyes: PERRL, EOM intact - Neck Neck: supple, normal ROM - Respiratory Respiratory effort: normal - Cardiovascular Rhythm: regular Heart Sounds: Present: S1 & S2. Absent: gallop, rub Extremity abnormal: other (AKA improved edema) - Gastrointestinal General gastrointestinal: Present: soft, non-tender, non-distended, normal bowel sounds, other (Obese) - Musculoskeletal Musculoskeletal: generalized weakness - Neurologic Neurologic: moves all extremities - Labs CBC & Chem 7: 09/18/21 05:17 09/18/21 05:17 Labs: Abnormal lab results 09/17/21 09/17/21 09/17/21 Range/Units 11:13 16:42 21:04 RBC (3.65-5.03) M/mm3 Hgb (10.1-14.3) gm/dl Hct (30.3-42.9) % MCHC (30-34) % RDW (13.2-15.2) % Plt Count (140-440) K/mm3 [place] % (Auto) (0.0-7.3) % Eos % (Auto) (0.0-4.3) % Lymph # (Auto) (1.2-5.4) K/mm3 BUN (7-17) mg/dL Creatinine (0.6-1.2) mg/dL POC Glucose 142 H 144 H 150 H (70-105) mg/dL Calcium (8.4-10.2) mg/dL Iron (37-170) ug/dL TIBC (250-450) mcg/dL Ferritin (10.0-200.0) ng/mL 09/18/21 09/18/21 09/18/21 Range/Units 05:17 05:17 05:17 RBC 2.71 L (3.65-5.03) M/mm3 Hgb 8.7 L (10.1-14.3) gm/dl Hct 25.2 L (30.3-42.9) % MCHC 35 H (30-34) % RDW 15.7 H (13.2-15.2) % Plt Count 136 L (140-440) K/mm3 [place] % (Auto) 7.8 H (0.0-7.3) % Eos % (Auto) 7.5 H (0.0-4.3) % Lymph # (Auto) 1.0 L (1.2-5.4) K/mm3 BUN 24 H (7-17) mg/dL Creatinine 3.0 H (0.6-1.2) mg/dL POC Glucose (70-105) mg/dL Calcium 8.2 L (8.4-10.2) mg/dL Iron 33 L (37-170) ug/dL TIBC 135 L (250-450) mcg/dL Ferritin 614.9 H (10.0-200.0) ng/mL
[2021-09-18] MEDS: DOCUSATE SODIUM 100 MG CAP PO SCH (09:36)
[2021-09-18] MEDS: amLODIPine 10 MG TAB PO SCH (09:36)
[2021-09-18] MEDS: ASPIRIN EC 81 MG TAB PO SCH (09:36)
[2021-09-18] MEDS: carvediloL 3.125 MG TAB PO SCH ×2 (09:37→21:53)
[2021-09-18] MEDS: APIXABAN 2.5 MG TAB PO SCH ×2 (09:37→21:53)
--- NOTE | 2021-09-18 13:49 | Progress Note ---
Assessment and Plan - Patient Problems (1) Preoperative cardiovascular examination Current Visit: Yes Status: Acute Plan to address problem: Patient is admitted for vascular surgery as described above. History of moderate severity nonischemic cardiomyopathy, current cardiac status is asymptomatic. Cardiac status post peripheral vascular procedure is stable and asymptomatic, continue conservative cardiac management. Subjective Date of service: 09/18/21 Principal diagnosis: CKD Interval history: Patient is comfortable looks and feels well, reports that she wants to go home today. Objective Vital Signs Temp Pulse Resp BP Pulse Ox 09/18/21 10:31 97.7 F 73 18 146/63 96 09/18/21 10:00 98 09/18/21 06:00 18 98 09/18/21 05:05 98.0 F 73 18 156/67 97 09/17/21 21:07 74 169/66 09/17/21 19:40 98.6 F 74 18 169/66 96 09/17/21 16:34 98.5 F 72 18 170/62 95 - Physical Examination General: No Apparent Distress, Other (OW) HEENT: Positive: PERRL Neck: Positive: neck supple Cardiac: Positive: Reg Rate and Rhythm Lungs: Positive: Decreased Breath Sounds Neuro: Positive: Grossly Intact Abdomen: Positive: Soft Skin: Positive: Clear Musculoskeletal: other (Status post left above-knee amputation) Extremities: Present: Other (AKA/L). Absent: edema - Labs and Meds CBC 09/18/21 Range/Units 05:17 WBC 5.6 (4.5-11.0) K/mm3 RBC 2.71 L (3.65-5.03) M/mm3 Hgb 8.7 L (10.1-14.3) gm/dl Hct 25.2 L (30.3-42.9) % Plt Count 136 L (140-440) K/mm3 Lymph # (Auto) 1.0 L (1.2-5.4) K/mm3 [place] # (Auto) 0.4 (0.0-0.8) K/mm3 Eos # (Auto) 0.4 (0.0-0.4) K/mm3 Baso # (Auto) 0.1 (0.0-0.1) K/mm3 Comprehensive Metabolic Panel 09/18/21 Range/Units 05:17 Sodium 141 (137-145) mmol/L Potassium 3.7 (3.6-5.0) mmol/L Chloride 104.8 (98-107) mmol/L Carbon Dioxide 24 (22-30) mmol/L BUN 24 H (7-17) mg/dL Creatinine 3.0 H (0.6-1.2) mg/dL Glucose 90 (65-100) mg/dL Calcium 8.2 L (8.4-10.2) mg/dL
--- NOTE | 2021-09-18 15:11 | Progress Note ---
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 Doing well. No abdominal pain. No pulsatility to the lower abdomen. Follow-up with Dr. Montalvo in 2 weeks. Subjective Date of service: 09/18/21 Principal diagnosis: CKD Interval history: No abdominal pain. Left groin and right chest sites are clean, dry, and intact. Patient is feeling better. Feeling good and wants to leave. Objective - Constitutional Vitals: Vital Signs - 12hr 09/18/21 09/18/21 09/18/21 05:05 06:00 10:00 Temperature 98.0 F Pulse Rate 73 Respiratory 18 18 Rate Blood Pressure 156/67 O2 Sat by Pulse 97 98 98 Oximetry 09/18/21 10:31 Temperature 97.7 F Pulse Rate 73 Respiratory 18 Rate Blood Pressure 146/63 O2 Sat by Pulse 96 Oximetry General appearance: Present: no acute distress - EENT Eyes: EOM intact ENT: hearing intact - Respiratory Respiratory effort: normal Extremities: abnormal (Left above-knee amputation, scarred groins, no pulsatility to lower abdomen) - Gastrointestinal General gastrointestinal: Present: soft, non-tender, other (No pulsatility to lower abdomen) - Psychiatric Psychiatric: appropriate mood/affect, cooperative - Labs CBC & Chem 7: 09/18/21 05:17 09/18/21 05:17 Labs: Abnormal lab results 09/17/21 09/17/21 09/18/21 Range/Units 16:42 21:04 05:17 RBC 2.71 L (3.65-5.03) M/mm3 Hgb 8.7 L (10.1-14.3) gm/dl Hct 25.2 L (30.3-42.9) % MCHC 35 H (30-34) % RDW 15.7 H (13.2-15.2) % Plt Count 136 L (140-440) K/mm3 [place] % (Auto) 7.8 H (0.0-7.3) % Eos % (Auto) 7.5 H (0.0-4.3) % Lymph # (Auto) 1.0 L (1.2-5.4) K/mm3 BUN (7-17) mg/dL Creatinine (0.6-1.2) mg/dL POC Glucose 144 H 150 H (70-105) mg/dL Calcium (8.4-10.2) mg/dL Iron (37-170) ug/dL TIBC (250-450) mcg/dL Ferritin (10.0-200.0) ng/mL 09/18/21 09/18/21 09/18/21 Range/Units 05:17 05:17 11:12 RBC (3.65-5.03) M/mm3 Hgb (10.1-14.3) gm/dl Hct (30.3-42.9) % MCHC (30-34) % RDW (13.2-15.2) % Plt Count (140-440) K/mm3 [place] % (Auto) (0.0-7.3) % Eos % (Auto) (0.0-4.3) % Lymph # (Auto) (1.2-5.4) K/mm3 BUN 24 H (7-17) mg/dL Creatinine 3.0 H (0.6-1.2) mg/dL POC Glucose 112 H (70-105) mg/dL Calcium 8.2 L (8.4-10.2) mg/dL Iron 33 L (37-170) ug/dL TIBC 135 L (250-450) mcg/dL Ferritin 614.9 H (10.0-200.0) ng/mL Medications & Allergies - Medications Allergies/Adverse Reactions: Allergies No Known Allergies Allergy (Verified 09/14/21 12:33) Home Medications: Home Medications Medication Instructions Recorded Confirmed Last Taken Type Aspirin [Aspirin BABY CHEW TAB] 81 mg PO QDAY 05/27/14 09/14/21 2 Days Ago History ~01/11/21 hydrALAZINE [Apresoline TAB] 100 mg PO TID #90 tab 11/03/16 09/14/21 2 Days Ago Rx ~01/11/21 Docusate Sodium [Colace CAP] 100 mg PO DAILY 01/03/18 09/14/21 2 Days Ago History ~01/11/21 Simvastatin [Zocor] 20 mg PO BID 01/03/18 09/14/21 2 Days Ago History ~01/11/21 amLODIPine 10 mg PO DAILY 01/03/18 09/14/21 2 Days Ago History ~01/11/21 Cholecalciferol (Vitamin D3) 50,000 unit PO QWEEK 09/14/21 09/14/21 Unknown History [Vitamin D3 50,000UNIT CAP] Dorzolamide HCl/Timolol Maleat 1 drop OU BID 09/14/21 09/14/21 Unknown History [Dorzolamide-Timolol Eye Drops] Ferrous Gluconate [Ferrous 324 mg PO QDAY 09/14/21 09/14/21 Unknown History Gluconate 324 MG] Furosemide [Lasix TAB] 40 mg PO QDAY 09/14/21 09/14/21 Unknown History Insulin Aspart [Novolog Flexpen] 0 unit SQ TID 09/14/21 09/14/21 Unknown History Insulin Detemir [Levemir Flextouch] 0 unit SQ QHS 09/14/21 09/14/21 Unknown History Irbesartan 300 mg PO QDAY 09/14/21 09/14/21 Unknown History carvediloL [Coreg] 3.125 mg PO BID 09/14/21 09/14/21 Unknown History Apixaban [Eliquis] 2.5 mg PO BID #60 tab 09/16/21 Unknown Rx Pantoprazole [Protonix] 40 mg PO QDAY #90 tablet 09/17/21 Unknown Rx Active Medications: Generic Name Dose Route Start Last Admin Trade Name Freq PRN Reason Stop Dose Admin Acetaminophen 650 mg 09/14/21 04:36 09/15/21 20:10 Acetaminophen 325 Mg Tab PO 650 mg Q4H PRN Administration Pain MILD(1-3)/Fever >100.5/MARCANO Amlodipine Besylate 10 mg 09/14/21 18:00 09/18/21 09:36 Amlodipine 10 Mg Tab PO 10 mg DAILY KIP Administration Apixaban 2.5 mg 09/15/21 22:00 09/18/21 09:37 Apixaban 2.5 Mg Tab PO 2.5 mg Q12HR KIP Administration Protocol Aspirin 81 mg 09/16/21 10:00 09/18/21 09:36 Aspirin Ec 81 Mg Tab PO 81 mg QDAY KIP Administration Carvedilol 6.25 mg 09/17/21 10:00 09/18/21 09:37 Carvedilol 3.125 Mg Tab PO 6.25 mg BID KIP Administration Dextrose 0 ml 09/15/21 11:00 Dextrose 50% In Water (25gm) 50 Ml Syringe IV Q30MIN PRN Hypoglycemia Protocol Docusate Sodium 100 mg 09/15/21 10:00 09/18/21 09:36 Docusate Sodium 100 Mg Cap PO 100 mg DAILY KIP Administration Hydralazine HCl 100 mg 09/14/21 20:00 09/18/21 13:00 Hydralazine 100 Mg Tab PO 100 mg TID KIP Administration Piperacillin Sod/Tazobactam Sod 2.25 gm in 50 mls @ 100 mls/hr 09/14/21 14:00 09/18/21 13:00 Zosyn/Ns 2.25 Gm/50ml IV 09/19/21 13:59 100 mls/hr Q8HR KIP Administration Sodium Bicarbonate 75 meq/ 1,075 mls @ 100 mls/hr 09/14/21 11:00 09/17/21 18:29 Sodium Chloride IV 100 mls/hr DIRECT KIP Administration Insulin Human Lispro 0 unit 09/14/21 07:30 09/18/21 11:30 Insulin Lispro 100 Unit/Ml SUB-Q Not Given ACHS [facility] Protocol Magnesium Hydroxide 30 ml 09/14/21 04:36 Magnesium Hydroxide (Mom) Oral Liqd Udc PO Q4H PRN Constipation Miscellaneous Medication 1 drop 09/14/21 22:00 Dorzolamide Hcl/Timolol Maleat [Dorzolamide-Timolol Eye Drops] OP BID KIP Morphine Sulfate 2 mg 09/14/21 04:36 09/17/21 10:19 Morphine 2 Mg/1 Ml Inj IV 2 mg Q4H PRN Administration Pain, Moderate (4-6) Morphine Sulfate 4 mg 09/14/21 04:36 09/14/21 05:05 Morphine 4 Mg/1 Ml Inj IV 4 mg Q4H PRN Administration Pain , Severe (7-10) Ondansetron HCl 4 mg 09/14/21 04:36 Ondansetron 4 Mg/2 Ml Inj IV Q8H PRN Nausea And Vomiting Pantoprazole Sodium 40 mg 09/16/21 07:30 09/18/21 07:30 Pantoprazole 40 Mg Tab PO 40 mg QDAC KIP Administration Pravastatin Sodium 40 mg 09/14/21 22:00 09/17/21 21:08 Pravastatin 40 Mg Tab PO 40 mg QHS KIP Administration Sodium Chloride 10 ml 09/14/21 10:00 09/18/21 09:36 Sodium Chloride 0.9% 10 Ml Flush Syringe IV 10 ml BID KIP Administration Sodium Chloride 10 ml 09/14/21 04:36 Sodium Chloride 0.9% 10 Ml Flush Syringe IV PRN PRN LINE FLUSH
--- NOTE | 2021-09-18 17:10 | Progress Note ---
Assessment and Plan - Patient Problems (1) Chronic kidney disease Current Visit: Yes Status: Acute Qualifiers: Chronic kidney disease stage: stage 4 (severe) Qualified Code(s): N18.4 - Chronic kidney disease, stage 4 (severe) Plan to address problem: Patient with known history of CKD stage for with baseline Cr around 2.7 - 3.2mg/dl, she follows up with Dr Olvera in our group. Cont supportive care for CKD avoid nephrotoxins, NSAIDs, IV contrast. Patient without acute indications for renal replacement therapy at present, once anemia is stabilized pt can be discharged from renal stand point with outpatient CKD follow up in 1-2 weeks (2) Abdominal pain Current Visit: Yes Status: Acute Qualifiers: Abdominal location: left upper quadrant Qualified Code(s): R10.12 - Left upper quadrant pain Plan to address problem: s/p endovascular repair of right femoral to left femoral pseudoaneurym. Follow vascular surgery recommendations. (3) Type 2 diabetes mellitus Current Visit: No Status: Acute Plan to address problem: diabetes management as per primary attending (4) Anemia in chronic illness Current Visit: Yes Status: Acute Plan to address problem: check iron panel/ferritin level, transfuse with PRBC to target hb > 7 Subjective Date of service: 09/18/21 Principal diagnosis: CKD Interval history: Patient is awake, alert, in no acute respiratory distress, denies CP, SOB, palpitations, dysuria. Objective - Vital Signs Vital signs: Vital Signs - 12hr 09/18/21 09/18/21 09/18/21 06:00 10:00 10:31 Temperature 97.7 F Pulse Rate 73 Respiratory 18 18 Rate Blood Pressure 146/63 O2 Sat by Pulse 98 98 96 Oximetry - General Appearance General appearance: well-developed, well-nourished, appears stated age EENT: ATNC, PERRL, mucous membranes moist Neck: no JVD Respiratory: Present: Clear to Ascultation Cardiology: regular, S1S2 Gastrointestinal: normoactive bowel sounds Integumentary: no rash, other (no edema ) Neurologic: no focal deficit, alert and oriented x3, strength 5/5, CN 3-12 intact Psychiatric: mood/affect appropriate, cooperative - Lab 09/18/21 05:17 09/18/21 05:17 Most recent lab results Calcium 8.2 mg/dL (8.4-10.2) L 09/18/21 05:17 Phosphorus 3.20 mg/dL (2.5-4.5) 09/17/21 05:31 Medications & Allergies - Medications Allergies/Adverse Reactions: Allergies No Known Allergies Allergy (Verified 09/14/21 12:33) Home Medications: Home Medications Medication Instructions Recorded Confirmed Last Taken Type Aspirin [Aspirin BABY CHEW TAB] 81 mg PO QDAY 05/27/14 09/14/21 2 Days Ago History ~01/11/21 hydrALAZINE [Apresoline TAB] 100 mg PO TID #90 tab 11/03/16 09/14/21 2 Days Ago Rx ~01/11/21 Docusate Sodium [Colace CAP] 100 mg PO DAILY 01/03/18 09/14/21 2 Days Ago History ~01/11/21 Simvastatin [Zocor] 20 mg PO BID 01/03/18 09/14/21 2 Days Ago History ~01/11/21 amLODIPine 10 mg PO DAILY 01/03/18 09/14/21 2 Days Ago History ~01/11/21 Cholecalciferol (Vitamin D3) 50,000 unit PO QWEEK 09/14/21 09/14/21 Unknown History [Vitamin D3 50,000UNIT CAP] Dorzolamide HCl/Timolol Maleat 1 drop OU BID 09/14/21 09/14/21 Unknown History [Dorzolamide-Timolol Eye Drops] Ferrous Gluconate [Ferrous 324 mg PO QDAY 09/14/21 09/14/21 Unknown History Gluconate 324 MG] Furosemide [Lasix TAB] 40 mg PO QDAY 09/14/21 09/14/21 Unknown History Insulin Aspart [Novolog Flexpen] 0 unit SQ TID 09/14/21 09/14/21 Unknown History Insulin Detemir [Levemir Flextouch] 0 unit SQ QHS 09/14/21 09/14/21 Unknown History Irbesartan 300 mg PO QDAY 09/14/21 09/14/21 Unknown History carvediloL [Coreg] 3.125 mg PO BID 09/14/21 09/14/21 Unknown History Apixaban [Eliquis] 2.5 mg PO BID #60 tab 09/16/21 Unknown Rx Pantoprazole [Protonix] 40 mg PO QDAY #90 tablet 09/17/21 Unknown Rx Active Medications: Generic Name Dose Route Start Last Admin Trade Name Freq PRN Reason Stop Dose Admin Acetaminophen 650 mg 09/14/21 04:36 09/15/21 20:10 Acetaminophen 325 Mg Tab PO 650 mg Q4H PRN Administration Pain MILD(1-3)/Fever >100.5/MARCANO Amlodipine Besylate 10 mg 09/14/21 18:00 09/18/21 09:36 Amlodipine 10 Mg Tab PO 10 mg DAILY KIP Administration Apixaban 2.5 mg 09/15/21 22:00 09/18/21 09:37 Apixaban 2.5 Mg Tab PO 2.5 mg Q12HR KIP Administration Protocol Aspirin 81 mg 09/16/21 10:00 09/18/21 09:36 Aspirin Ec 81 Mg Tab PO 81 mg QDAY KIP Administration Carvedilol 6.25 mg 09/17/21 10:00 09/18/21 09:37 Carvedilol 3.125 Mg Tab PO 6.25 mg BID KIP Administration Dextrose 0 ml 09/15/21 11:00 Dextrose 50% In Water (25gm) 50 Ml Syringe IV Q30MIN PRN Hypoglycemia Protocol Docusate Sodium 100 mg 09/15/21 10:00 09/18/21 09:36 Docusate Sodium 100 Mg Cap PO 100 mg DAILY KIP Administration Hydralazine HCl 100 mg 09/14/21 20:00 09/18/21 13:00 Hydralazine 100 Mg Tab PO 100 mg TID IKP Administration Piperacillin Sod/Tazobactam Sod 2.25 gm in 50 mls @ 100 mls/hr 09/14/21 14:00 09/18/21 13:00 Zosyn/Ns 2.25 Gm/50ml IV 09/19/21 13:59 100 mls/hr Q8HR KIP Administration Sodium Bicarbonate 75 meq/ 1,075 mls @ 100 mls/hr 09/14/21 11:00 09/17/21 18:29 Sodium Chloride IV 100 mls/hr DIRECT KIP Administration Insulin Human Lispro 0 unit 09/14/21 07:30 09/18/21 11:30 Insulin Lispro 100 Unit/Ml SUB-Q Not Given ACHS KIP Protocol Magnesium Hydroxide 30 ml 09/14/21 04:36 Magnesium Hydroxide (Mom) Oral Liqd Udc PO Q4H PRN Constipation Miscellaneous Medication 1 drop 09/14/21 22:00 Dorzolamide Hcl/Timolol Maleat [Dorzolamide-Timolol Eye Drops] OP BID KIP Morphine Sulfate 2 mg 09/14/21 04:36 09/17/21 10:19 Morphine 2 Mg/1 Ml Inj IV 2 mg Q4H PRN Administration Pain, Moderate (4-6) Morphine Sulfate 4 mg 09/14/21 04:36 09/14/21 05:05 Morphine 4 Mg/1 Ml Inj IV 4 mg Q4H PRN Administration Pain , Severe (7-10) Ondansetron HCl 4 mg 09/14/21 04:36 Ondansetron 4 Mg/2 Ml Inj IV Q8H PRN Nausea And Vomiting Pantoprazole Sodium 40 mg 09/16/21 07:30 09/18/21 07:30 Pantoprazole 40 Mg Tab PO 40 mg QDAC KIP Administration Pravastatin Sodium 40 mg 09/14/21 22:00 09/17/21 21:08 Pravastatin 40 Mg Tab PO 40 mg QHS KIP Administration Sodium Chloride 10 ml 09/14/21 10:00 09/18/21 09:36 Sodium Chloride 0.9% 10 Ml Flush Syringe IV 10 ml BID KIP Administration Sodium Chloride 10 ml 09/14/21 04:36 Sodium Chloride 0.9% 10 Ml Flush Syringe IV PRN PRN LINE FLUSH
[2021-09-18] MEDS: SODIUM BICARBONATE 75 MEQ in SODIUM CHLORIDE 0.45% 1000 ML 1,000 ML IV SCH (21:52)
[2021-09-18] MEDS: PRAVASTATIN 40 MG TAB PO SCH (21:53)
[2021-09-19] MEDS: PIPERACIL-TAZO 2.25 GM/50 ML 2.25 GM/50 ML BAG IV SCH (05:28)
[2021-09-19] MEDS: INSULIN LISPRO 100 UNIT/ML SUB-Q SCH ×4 (07:30→22:45)
[2021-09-19] MEDS: PANTOPRAZOLE 40 MG TAB PO SCH (07:30)
[2021-09-19 08:00] LABS: Basophils # (Auto) 0.1 K/mm3 (0.0-0.1); Basophils % (Auto) 1.2 % (0.0-1.8); Eosinophils # (Auto) 0.3 K/mm3 (0.0-0.4); Eosinophils % (Auto) 5.4 % (0.0-4.3); Hematocrit 26.3 % (30.3-42.9); Hemoglobin 8.7 gm/dl (10.1-14.3); Lymphocytes # (Auto) 0.6 K/mm3 (1.2-5.4); Lymphocytes % (Auto) 10.4 % (13.4-35.0); Mean Corpuscular HGB Conc 33 % (30-34); Mean Corpuscular Volume 95 fl (79-97); Monocytes # (Auto) 0.5 K/mm3 (0.0-0.8); Monocytes % (Auto) 8.2 % (0.0-7.3); Platelet Count 163 K/mm3 (140-440); Red Blood Count 2.77 M/mm3 (3.65-5.03); Red Cell Distribution Width 15.5 % (13.2-15.2)
[2021-09-19] MEDS: hydrALAZINE 100 MG TAB PO SCH ×3 (08:00→21:09)
--- NOTE | 2021-09-19 08:06 | Progress Note ---
Assessment and Plan Assessment and plan: #Abdominal pain-improved #Psuedoaneurysm of L femoral anastomosis -Spoke to Dr. Cruz in detail explained risk and outcomes of patient surgical procedure. Follow-up ultrasound today for reevaluation and discharge planning -presents for surgical correction vascular surgery. Endovascular repair of right femoral to left femoral pseudoaneurysm -large pseudoaneurysm originating from the left femoral anastomosis seen on CT of abdomen/pelvis -If without any further recommendations from vascular stable to discharge back to nursing facility. -No extravasation from the graft/pseudoaneurysm seen #Chronic kidney disease -Some improvement in renal function. Creatinine from 3.7 now 3.2 cont to improve -She has underlying chronic kidney disease baseline 2.7-3.2 she is about that now. Has follow-up with 2 wee -Avoid nephrotoxins and renally dose medications #Type 2 diabetes mellitus -continue sliding scale insulin and Accu-Cheks -Continue present management. #Anemia of Chronic Disease -Likely secondary to kidney disease -Transfused 2 units of packed red cells -We will transfuse 1 unit packed red blood cells today. #Advanced care planning -Disease education conducted, care plan discussed, diagnoses discussed, prognosis discussed, and patient acknowledges understanding with care plan Will most likely need further placement -Time: +15 min Subjective Date of service: 09/18/21 Principal diagnosis: CKD Interval history: 85-year-old -Citizen Of [place] female with known history of hypertension, diabetes mellitus, distal chronic kidney disease, left above-knee amputation, history of right femoral to left femoral bypass graft presenting in the emergency room today complaining of abdominal pain. Abdominal pain is said to be more in the lower abdomen and has been having progressive swelling in the left lower abdomen. She denies any constipation and denies any diarrhea, no nausea vomiting, no chest pain or shortness of breath, no headache or dizziness and no diaphoresis. Patient denies any hematuria or dysuria. Denies any bright red blood per rectum. She denies any fever or chills. Work-up in the emergency room today, CT of the abdomen and pelvis shows: 1. Discontinuous femorofemoral crossover graft with large subcutaneous hematomas as detailed throughout the panniculus. Evaluation of active extravasation and possible secondary to lack of intravenous contrast. 09/16/2021 patient alert today. Complains of some pain at surgical site very minimal. Could not get purwick catheter secondary to body habitus around left AKA site. 09/17/2021 Patient tolerated transfusion well. No new events overnight. Hospital course complicated by suboptimal hypertension 09/18/2021 Patient no new events over p.m. Reevaluated for anemia H&H remained stable. B lood pressure much better control since dose titration Await any further recommendations from vascular. Hospitalist Physical - Constitutional Vitals: Temp Pulse Resp BP Pulse Ox 98.5 F 72 16 159/69 96 09/19/21 04:25 09/19/21 04:25 09/19/21 04:25 09/19/21 04:25 09/19/21 04:25 General appearance: Present: no acute distress Results - Labs CBC & Chem 7: 09/19/21 06:58 09/18/21 05:17 Labs: Laboratory Last Values WBC 5.7 K/mm3 (4.5-11.0) 09/19/21 06:58 RBC 2.77 M/mm3 (3.65-5.03) L 09/19/21 06:58 Hgb 8.7 gm/dl (10.1-14.3) L 09/19/21 06:58 Hct 26.3 % (30.3-42.9) L 09/19/21 06:58 MCV 95 fl (79-97) 09/19/21 06:58 MCH 32 pg (28-32) 09/19/21 06:58 MCHC 33 % (30-34) 09/19/21 06:58 RDW 15.5 % (13.2-15.2) H 09/19/21 06:58 Plt Count 163 K/mm3 (140-440) 09/19/21 06:58 Lymph % (Auto) 10.4 % (13.4-35.0) L 09/19/21 06:58 [place] % (Auto) 8.2 % (0.0-7.3) H 09/19/21 06:58 Eos % (Auto) 5.4 % (0.0-4.3) H 09/19/21 06:58 Baso % (Auto) 1.2 % (0.0-1.8) 09/19/21 06:58 Lymph # (Auto) 0.6 K/mm3 (1.2-5.4) L 09/19/21 06:58 [place] # (Auto) 0.5 K/mm3 (0.0-0.8) 09/19/21 06:58 Eos # (Auto) 0.3 K/mm3 (0.0-0.4) 09/19/21 06:58 Baso # (Auto) 0.1 K/mm3 (0.0-0.1) 09/19/21 06:58 Seg Neutrophils % 74.8 % (40.0-70.0) H 09/19/21 06:58 Seg Neutrophils # 4.3 K/mm3 (1.8-7.7) 09/19/21 06:58 PT 16.2 Sec. (12.2-14.9) H 09/14/21 04:01 INR 1.16 (0.87-1.13) H 09/14/21 04:01 Sodium 141 mmol/L (137-145) 09/18/21 05:17 Potassium 3.7 mmol/L (3.6-5.0) 09/18/21 05:17 Chloride 104.8 mmol/L (98-107) 09/18/21 05:17 Carbon Dioxide 24 mmol/L (22-30) 09/18/21 05:17 Anion Gap 16 mmol/L 09/18/21 05:17 BUN 24 mg/dL (7-17) H 09/18/21 05:17 Creatinine 3.0 mg/dL (0.6-1.2) H 09/18/21 05:17 Estimated GFR 18 ml/min 09/18/21 05:17 BUN/Creatinine Ratio 8 % 09/18/21 05:17 Glucose 90 mg/dL (65-100) 09/18/21 05:17 POC Glucose 132 mg/dL (70-105) H 09/18/21 21:08 Calcium 8.2 mg/dL (8.4-10.2) L 09/18/21 05:17 Phosphorus 3.20 mg/dL (2.5-4.5) 09/17/21 05:31 Iron 33 ug/dL (37-170) L 09/18/21 05:17 TIBC 135 mcg/dL (250-450) L 09/18/21 05:17 Ferritin 614.9 ng/mL (10.0-200.0) H 09/18/21 05:17 Total Bilirubin 0.30 mg/dL (0.1-1.2) 09/13/21 23:35 AST 17 units/L (5-40) 09/13/21 23:35 ALT 5 units/L (7-56) L 09/13/21 23:35 Alkaline Phosphatase 44 units/L (35-129) 09/13/21 23:35 Total Protein 6.0 g/dL (6.3-8.2) L 09/13/21 23:35 Albumin 3.1 g/dL (3.9-5) L 09/13/21 23:35 Albumin/Globulin Ratio 1.1 % 09/13/21 23:35 Lipase 53 units/L (13-60) 09/13/21 23:35 Urine Color Nickie (Yellow) 09/14/21 Unknown Urine Turbidity Cloudy (Clear) 09/14/21 Unknown Urine pH 5.0 (5.0-7.0) 09/14/21 Unknown Ur Specific [place] 1.018 (1.003-1.030) 09/14/21 Unknown Urine Protein >500 mg/dL (Negative) 09/14/21 Unknown Urine Glucose (UA) 150 mg/dL (Negative) 09/14/21 Unknown Urine Ketones Neg mg/dL (Negative) 09/14/21 Unknown Urine Blood Neg (Negative) 09/14/21 Unknown Urine Nitrite Neg (Negative) 09/14/21 Unknown Urine Bilirubin Neg (Negative) 09/14/21 Unknown Urine Urobilinogen < 2.0 mg/dL (<2.0) 09/14/21 Unknown Ur Leukocyte Esterase Neg (Negative) 09/14/21 Unknown Urine WBC (Auto) 12.0 /HPF (0.0-6.0) H 09/14/21 Unknown Urine RBC (Auto) 2.0 /HPF (0.0-6.0) 09/14/21 Unknown U Epithel Cells (Auto) 1.0 /HPF (0-13.0) 09/14/21 Unknown Urine Bacteria (Auto) 1+ /HPF (Negative) 09/14/21 Unknown Urine Mucus Few /HPF 09/14/21 Unknown Urine Yeast (Budding) 1+ /HPF 09/14/21 Unknown Blood Type B POSITIVE 09/14/21 02:35 Antibody Screen Negative 09/14/21 02:35 Crossmatch See Detail 09/14/21 02:35 Microbiology: Microbiology 09/14/21 04:01 Peripheral/Venous Blood Culture - Final NO GROWTH AFTER 5 DAYS 09/14/21 04:01 Peripheral/Venous Blood Culture - Final NO GROWTH AFTER 5 DAYS Peguero/IV: Voiding Method External Female Catheter Active Medications - Current Medications Current Medications: Generic Name Dose Route Start Last Admin Trade Name Freq PRN Reason Stop Dose Admin Acetaminophen 650 mg 09/14/21 04:36 09/15/21 20:10 Acetaminophen 325 Mg Tab PO 650 mg Q4H PRN Administration Pain MILD(1-3)/Fever >100.5/MARCANO Amlodipine Besylate 10 mg 09/14/21 18:00 09/18/21 09:36 Amlodipine 10 Mg Tab PO 10 mg DAILY KIP Administration Apixaban 2.5 mg 09/15/21 22:00 09/18/21 21:53 Apixaban 2.5 Mg Tab PO 2.5 mg Q12HR KIP Administration Protocol Aspirin 81 mg 09/16/21 10:00 09/18/21 09:36 Aspirin Ec 81 Mg Tab PO 81 mg QDAY KIP Administration Carvedilol 6.25 mg 09/17/21 10:00 09/18/21 21:53 Carvedilol 3.125 Mg Tab PO 6.25 mg BID KIP Administration Dextrose 0 ml 09/15/21 11:00 Dextrose 50% In Water (25gm) 50 Ml Syringe IV Q30MIN PRN Hypoglycemia Protocol Docusate Sodium 100 mg 09/15/21 10:00 09/18/21 09:36 Docusate Sodium 100 Mg Cap PO 100 mg DAILY KIP Administration Hydralazine HCl 100 mg 09/14/21 20:00 09/18/21 19:34 Hydralazine 100 Mg Tab PO 100 mg TID KIP Administration Piperacillin Sod/Tazobactam Sod 2.25 gm in 50 mls @ 100 mls/hr 09/14/21 14:00 09/19/21 05:28 Zosyn/Ns 2.25 Gm/50ml IV 09/19/21 13:59 100 mls/hr Q8HR KIP Administration Sodium Bicarbonate 75 meq/ 1,075 mls @ 100 mls/hr 09/14/21 11:00 09/18/21 21:52 Sodium Chloride IV 100 mls/hr DIRECT KIP Administration Insulin Human Lispro 0 unit 09/14/21 07:30 09/19/21 07:30 Insulin Lispro 100 Unit/Ml SUB-Q Not Given ACHS [facility] Protocol Magnesium Hydroxide 30 ml 09/14/21 04:36 Magnesium Hydroxide (Mom) Oral Liqd Udc PO Q4H PRN Constipation Miscellaneous Medication 1 drop 09/14/21 22:00 Dorzolamide Hcl/Timolol Maleat [Dorzolamide-Timolol Eye Drops] OP BID KIP Morphine Sulfate 2 mg 09/14/21 04:36 09/17/21 10:19 Morphine 2 Mg/1 Ml Inj IV 2 mg Q4H PRN Administration Pain, Moderate (4-6) Morphine Sulfate 4 mg 09/14/21 04:36 09/14/21 05:05 Morphine 4 Mg/1 Ml Inj IV 4 mg Q4H PRN Administration Pain , Severe (7-10) Ondansetron HCl 4 mg 09/14/21 04:36 Ondansetron 4 Mg/2 Ml Inj IV Q8H PRN Nausea And Vomiting Pantoprazole Sodium 40 mg 09/16/21 07:30 09/18/21 07:30 Pantoprazole 40 Mg Tab PO 40 mg QDAC KIP Administration Pravastatin Sodium 40 mg 09/14/21 22:00 09/18/21 21:53 Pravastatin 40 Mg Tab PO 40 mg QHS KIP Administration Sodium Chloride 10 ml 09/14/21 10:00 09/18/21 21:54 Sodium Chloride 0.9% 10 Ml Flush Syringe IV 10 ml BID KIP Administration Sodium Chloride 10 ml 09/14/21 04:36 Sodium Chloride 0.9% 10 Ml Flush Syringe IV PRN PRN LINE FLUSH
--- NOTE | 2021-09-19 08:13 | Discharge Summary ---
Providers - Providers Date of Admission: 09/14/21 04:36 Date of discharge: 09/19/21 Attending physician: SAMIRA GASTON 09/14/21 05:06 Consult to Physician [CONS] Routine Comment: Consulting Provider: CRISTHIAN TINSLEY Physician Instructions: Reason For Exam: Renal failure 09/14/21 05:11 Consult to Physician [CONS] Routine Comment: Consulting Provider: GURDEEP MYRICK Physician Instructions: Reason For Exam: Abdominal,?Bleeding from Aneurysm 09/14/21 07:39 Consult to Physician [CONS] Routine Comment: Consulting Provider: SALLIE ODONNELL Physician Instructions: Reason For Exam: cardiac clearance for possible surgery 09/14/21 09:30 Consult to Physician [CONS] Routine Comment: Consulting Provider: HALLE RHODES Physician Instructions: Reason For Exam: Acute on chronic renal failure 09/16/21 14:56 Consult to Physician [CONS] Routine Comment: Consulting Provider: ERNIE CONTRERAS Physician Instructions: Reason For Exam: CKD Stage 4 Primary care physician: ON SITE NURSE Hospitalization Condition: Stable Procedures: s/p endovascular exclusion of aneurysmal right to left femoral-femoral cryo graft of the axillary bifemoral bypass. Hospital course: #Abdominal pain-improved #Psuedoaneurysm of L femoral anastomosis -Spoke to Dr. Cruz in detail explained risk and outcomes of patient surgical procedure. Follow-up ultrasound today for reevaluation and discharge planning -presents for surgical correction vascular surgery. Endovascular repair of right femoral to left femoral pseudoaneurysm -large pseudoaneurysm originating from the left femoral anastomosis seen on CT of abdomen/pelvis -If without any further recommendations from vascular stable to discharge back to nursing facility. -No extravasation from the graft/pseudoaneurysm seen #Chronic kidney disease -Some improvement in renal function. Creatinine from 3.7 now 3.2 cont to improve -She has underlying chronic kidney disease baseline 2.7-3.2 she is about that now. Has follow-up with 2 wee -Avoid nephrotoxins and renally dose medications #Type 2 diabetes mellitus -continue sliding scale insulin and Accu-Cheks -Continue present management. #Anemia of Chronic Disease -Likely secondary to kidney disease -Transfused 2 units of packed red cells -We will transfuse 1 unit packed red blood cells today. #Advanced care planning -Disease education conducted, care plan discussed, diagnoses discussed, prognosis discussed, and patient acknowledges understanding with care plan Will most likely need further placement -Time: +15 min Subjective Date of service: 09/18/21 Principal diagnosis: CKD Interval history: 85-year-old -[place]ish female with known history of hypertension, diabetes mellitus, distal chronic kidney disease, left above-knee amputation, history of right femoral to left femoral bypass graft presenting in the emergency room today complaining of abdominal pain. Abdominal pain is said to be more in the lower abdomen and has been having progressive swelling in the left lower abdomen. She denies any constipation and denies any diarrhea, no nausea vomiting, no chest pain or shortness of breath, no headache or dizziness and no diaphoresis. Patient denies any hematuria or dysuria. Denies any bright red blood per rectum. She denies any fever or chills. Work-up in the emergency room today, CT of the abdomen and pelvis shows: 1. Discontinuous femorofemoral crossover graft with large subcutaneous hematomas as detailed throughout the panniculus. Evaluation of active extravasation and possible secondary to lack of intravenous contrast. 09/16/2021 patient alert today. Complains of some pain at surgical site very minimal. Could not get purwick catheter secondary to body habitus around left AKA site. 09/17/2021 Patient tolerated transfusion well. No new events overnight. Hospital course complicated by suboptimal hypertension 09/18/2021 Patient no new events over p.m. Reevaluated for anemia H&H remained stable. Blood pressure much better control since dose titration Await any further recommendations from vascular. Disposition: 01 HOME / SELF CARE / HOMELESS Final Discharge Diagnosis (Prints w/discharge instructions): Pseudoaneurysm of left femoral anastomosis. s/p endovascular repair of right femoral to left femoral pseudoaneurysm. Chronic kidney disease. Type 2 diabetes mellitus. Anemia of chronic disease. S/p 2 units PRBC transfusion. Obesity; BMI 31.5 Time spent for discharge: 35 min Core Measure Documentation - Palliative Care Palliative Care/ Comfort Measures: Not Applicable - Core Measures Any of the following diagnoses?: none Exam - Constitutional Vitals: Temp Pulse Resp BP Pulse Ox 98.5 F 72 16 159/69 96 09/19/21 04:25 09/19/21 04:25 09/19/21 04:25 09/19/21 04:25 09/19/21 04:25 Plan Activity: advance as tolerated, fall precautions Diet: other (Cardiac diet) Additional Instructions: If you have worsening symptoms contact MD or go to the nearest emergency room. Advised to follow primary care physician, pre press operator per schedule. Advised to follow vascular per schedule. Strongly advised to comply with medications, diet, follow-up visits Follow up with: SALLIE ODONNELL MD [Staff Physician] - 7 Days PRIMARY CARE, [Primary Care Provider] - 3-5 Days GURDEEP MYRICK MD [Staff Physician] - 14 Days ERNIE CONTRERAS MD [Staff Physician] - 14 Days Prescriptions: Apixaban [Eliquis] 2.5 mg PO BID #60 tab Pantoprazole [Protonix] 40 mg PO QDAY #90 tablet
[2021-09-19 08:16] LABS: Calcium 8.3 mg/dL (8.4-10.2)
[2021-09-19] MEDS: APIXABAN 2.5 MG TAB PO SCH ×2 (09:12→21:11)
[2021-09-19] MEDS: ASPIRIN EC 81 MG TAB PO SCH (09:12)
[2021-09-19] MEDS: DOCUSATE SODIUM 100 MG CAP PO SCH (09:12)
[2021-09-19] MEDS: amLODIPine 10 MG TAB PO SCH (09:13)
[2021-09-19] MEDS: carvediloL 3.125 MG TAB PO SCH ×2 (09:13→21:11)
--- NOTE | 2021-09-19 10:06 | Progress Note ---
Assessment and Plan - Patient Problems (1) Chronic kidney disease Current Visit: Yes Status: Acute Qualifiers: Chronic kidney disease stage: stage 4 (severe) Qualified Code(s): N18.4 - Chronic kidney disease, stage 4 (severe) Plan to address problem: Patient with known history of CKD stage for with baseline Cr around 2.7 - 3.2mg/dl, she follows up with Dr Olvera in our group. Cont supportive care for CKD avoid nephrotoxins, NSAIDs, IV contrast. Patient without acute indications for renal replacement therapy at present, once anemia is stabilized pt can be discharged from renal stand point with outpatient CKD follow up in 1-2 weeks (2) Abdominal pain Current Visit: Yes Status: Acute Qualifiers: Abdominal location: left upper quadrant Qualified Code(s): R10.12 - Left upper quadrant pain Plan to address problem: s/p endovascular repair of right femoral to left femoral pseudoaneurym. Follow vascular surgery recommendations. (3) Type 2 diabetes mellitus Current Visit: No Status: Acute Plan to address problem: diabetes management as per primary attending (4) Anemia in chronic illness Current Visit: Yes Status: Acute Plan to address problem: check iron panel/ferritin level, transfuse with PRBC to target hb > 7 Subjective Date of service: 09/19/21 Principal diagnosis: CKD Interval history: Patient is awake, alert, in no acute respiratory distress, denies CP, SOB, palpitations, dysuria. Objective - Vital Signs Vital signs: Vital Signs - 12hr 09/19/21 04:25 Temperature 98.5 F Pulse Rate 72 Respiratory 16 Rate Blood Pressure 159/69 O2 Sat by Pulse 96 Oximetry - General Appearance General appearance: well-developed, well-nourished, appears stated age EENT: ATNC, PERRL, mucous membranes moist Neck: no JVD Respiratory: Present: Clear to Ascultation Cardiology: regular, S1S2 Gastrointestinal: normoactive bowel sounds Integumentary: no rash, other (no edema ) Neurologic: no focal deficit, alert and oriented x3, strength 5/5, CN 3-12 intact Psychiatric: mood/affect appropriate, cooperative - Lab 09/19/21 06:58 09/19/21 06:58 Most recent lab results Calcium 8.3 mg/dL (8.4-10.2) L 09/19/21 06:58 Phosphorus 2.70 mg/dL (2.5-4.5) 09/19/21 06:58 Medications & Allergies - Medications Allergies/Adverse Reactions: Allergies No Known Allergies Allergy (Verified 09/14/21 12:33) Home Medications: Home Medications Medication Instructions Recorded Confirmed Last Taken Type Aspirin [Aspirin BABY CHEW TAB] 81 mg PO QDAY 05/27/14 09/14/21 2 Days Ago History ~01/11/21 hydrALAZINE [Apresoline TAB] 100 mg PO TID #90 tab 11/03/16 09/14/21 2 Days Ago Rx ~01/11/21 Docusate Sodium [Colace CAP] 100 mg PO DAILY 01/03/18 09/14/21 2 Days Ago History ~01/11/21 Simvastatin [Zocor] 20 mg PO BID 01/03/18 09/14/21 2 Days Ago History ~01/11/21 amLODIPine 10 mg PO DAILY 01/03/18 09/14/21 2 Days Ago History ~01/11/21 Cholecalciferol (Vitamin D3) 50,000 unit PO QWEEK 09/14/21 09/14/21 Unknown History [Vitamin D3 50,000UNIT CAP] Dorzolamide HCl/Timolol Maleat 1 drop OU BID 09/14/21 09/14/21 Unknown History [Dorzolamide-Timolol Eye Drops] Ferrous Gluconate [Ferrous 324 mg PO QDAY 09/14/21 09/14/21 Unknown History Gluconate 324 MG] Furosemide [Lasix TAB] 40 mg PO QDAY 09/14/21 09/14/21 Unknown History Insulin Aspart [Novolog Flexpen] 0 unit SQ TID 09/14/21 09/14/21 Unknown History Insulin Detemir [Levemir Flextouch] 0 unit SQ QHS 09/14/21 09/14/21 Unknown History Irbesartan 300 mg PO QDAY 09/14/21 09/14/21 Unknown History carvediloL [Coreg] 3.125 mg PO BID 09/14/21 09/14/21 Unknown History Apixaban [Eliquis] 2.5 mg PO BID #60 tab 09/16/21 Unknown Rx Pantoprazole [Protonix] 40 mg PO QDAY #90 tablet 09/17/21 Unknown Rx Active Medications: Generic Name Dose Route Start Last Admin Trade Name Freq PRN Reason Stop Dose Admin Acetaminophen 650 mg 09/14/21 04:36 09/15/21 20:10 Acetaminophen 325 Mg Tab PO 650 mg Q4H PRN Administration Pain MILD(1-3)/Fever >100.5/MARCANO Amlodipine Besylate 10 mg 09/14/21 18:00 09/19/21 09:13 Amlodipine 10 Mg Tab PO 10 mg DAILY KIP Administration Apixaban 2.5 mg 09/15/21 22:00 09/19/21 09:12 Apixaban 2.5 Mg Tab PO 2.5 mg Q12HR KIP Administration Protocol Aspirin 81 mg 09/16/21 10:00 09/19/21 09:12 Aspirin Ec 81 Mg Tab PO 81 mg QDAY KPI Administration Carvedilol 6.25 mg 09/17/21 10:00 09/19/21 09:13 Carvedilol 3.125 Mg Tab PO 6.25 mg BID KIP Administration Dextrose 0 ml 09/15/21 11:00 Dextrose 50% In Water (25gm) 50 Ml Syringe IV Q30MIN PRN Hypoglycemia Protocol Docusate Sodium 100 mg 09/15/21 10:00 09/19/21 09:12 Docusate Sodium 100 Mg Cap PO 100 mg DAILY KIP Administration Hydralazine HCl 100 mg 09/14/21 20:00 09/19/21 08:00 Hydralazine 100 Mg Tab PO 100 mg TID KIP Administration Piperacillin Sod/Tazobactam Sod 2.25 gm in 50 mls @ 100 mls/hr 09/14/21 14:00 09/19/21 05:28 Zosyn/Ns 2.25 Gm/50ml IV 09/19/21 13:59 100 mls/hr Q8HR KIP Administration Sodium Bicarbonate 75 meq/ 1,075 mls @ 100 mls/hr 09/14/21 11:00 09/18/21 21:52 Sodium Chloride IV 100 mls/hr DIRECT KIP Administration Insulin Human Lispro 0 unit 09/14/21 07:30 09/19/21 07:30 Insulin Lispro 100 Unit/Ml SUB-Q Not Given ACHS KIP Protocol Magnesium Hydroxide 30 ml 09/14/21 04:36 Magnesium Hydroxide (Mom) Oral Liqd Udc PO Q4H PRN Constipation Miscellaneous Medication 1 drop 09/14/21 22:00 Dorzolamide Hcl/Timolol Maleat [Dorzolamide-Timolol Eye Drops] OP BID KIP Morphine Sulfate 2 mg 09/14/21 04:36 09/17/21 10:19 Morphine 2 Mg/1 Ml Inj IV 2 mg Q4H PRN Administration Pain, Moderate (4-6) Morphine Sulfate 4 mg 09/14/21 04:36 09/14/21 05:05 Morphine 4 Mg/1 Ml Inj IV 4 mg Q4H PRN Administration Pain , Severe (7-10) Ondansetron HCl 4 mg 09/14/21 04:36 Ondansetron 4 Mg/2 Ml Inj IV Q8H PRN Nausea And Vomiting Pantoprazole Sodium 40 mg 09/16/21 07:30 09/19/21 07:30 Pantoprazole 40 Mg Tab PO 40 mg QDAC KIP Administration Pravastatin Sodium 40 mg 09/14/21 22:00 09/18/21 21:53 Pravastatin 40 Mg Tab PO 40 mg QHS KIP Administration Sodium Chloride 10 ml 09/14/21 10:00 09/19/21 09:12 Sodium Chloride 0.9% 10 Ml Flush Syringe IV 10 ml BID KIP Administration Sodium Chloride 10 ml 09/14/21 04:36 Sodium Chloride 0.9% 10 Ml Flush Syringe IV PRN PRN LINE FLUSH
--- NOTE | 2021-09-19 10:36 | Progress Note ---
Assessment and Plan - Patient Problems (1) Preoperative cardiovascular examination Current Visit: Yes Status: Acute Plan to address problem: Patient is admitted for vascular surgery as described above. History of moderate severity nonischemic cardiomyopathy, on guideline directed medical therapy, current cardiac status is asymptomatic. Cardiac status post peripheral vascular procedure is stable and asymptomatic, continue conservative cardiac management. We will follow intermittently. Subjective Date of service: 09/19/21 Principal diagnosis: CKD Interval history: No cardiac complaints, patient is comfortable, no new cardiac events reported. Objective Vital Signs Temp Pulse Resp BP BP Pulse Ox 09/19/21 04:25 98.5 F 72 16 159/69 96 09/18/21 22:00 97 09/18/21 21:10 98.7 F 80 16 142/65 96 09/18/21 19:29 98 F 85 18 152/66 95 09/18/21 16:04 98.9 F 71 18 146/68 94 - Physical Examination General: No Apparent Distress, Other (OW) HEENT: Positive: PERRL Neck: Positive: neck supple Cardiac: Positive: Reg Rate and Rhythm Lungs: Positive: clear to auscultation Neuro: Positive: Grossly Intact Abdomen: Positive: Soft Skin: Positive: Clear Musculoskeletal: other (Status post left above-knee amputation) Extremities: Present: Other (AKA/L). Absent: edema - Labs and Meds CBC 09/19/21 Range/Units 06:58 WBC 5.7 (4.5-11.0) K/mm3 RBC 2.77 L (3.65-5.03) M/mm3 Hgb 8.7 L (10.1-14.3) gm/dl Hct 26.3 L (30.3-42.9) % Plt Count 163 (140-440) K/mm3 Lymph # (Auto) 0.6 L (1.2-5.4) K/mm3 Glenn # (Auto) 0.5 (0.0-0.8) K/mm3 Eos # (Auto) 0.3 (0.0-0.4) K/mm3 Baso # (Auto) 0.1 (0.0-0.1) K/mm3 Comprehensive Metabolic Panel 09/19/21 Range/Units 06:58 Sodium 142 (137-145) mmol/L Potassium 3.6 (3.6-5.0) mmol/L Chloride 105.7 (98-107) mmol/L Carbon Dioxide 24 (22-30) mmol/L BUN 20 H (7-17) mg/dL Creatinine 2.8 H (0.6-1.2) mg/dL Glucose 102 H (65-100) mg/dL Calcium 8.3 L (8.4-10.2) mg/dL
[2021-09-19] MEDS: SODIUM BICARBONATE 75 MEQ in SODIUM CHLORIDE 0.45% 1000 ML 1,000 ML IV SCH (11:45)
[2021-09-19] MEDS: ACETAMINOPHEN 325 MG TAB PO PRN (11:55)
[2021-09-19] MEDS: PRAVASTATIN 40 MG TAB PO SCH (21:10)
[2021-09-20 04:58] VITALS: BP 176/67
[2021-09-20] MEDS: hydrALAZINE 100 MG TAB PO SCH (06:00)
[2021-09-20] MEDS: amLODIPine 10 MG TAB PO SCH (07:30)
[2021-09-20 07:57] LABS: Basophils # (Auto) 0.1 K/mm3 (0.0-0.1); Eosinophils # (Auto) 0.3 K/mm3 (0.0-0.4); Eosinophils % (Auto) 4.7 % (0.0-4.3); Hemoglobin 8.8 gm/dl (10.1-14.3); Lymphocytes # (Auto) 0.9 K/mm3 (1.2-5.4); Lymphocytes % (Auto) 15.6 % (13.4-35.0); Mean Corpuscular HGB Conc 33 % (30-34); Mean Corpuscular Volume 95 fl (79-97); Monocytes # (Auto) 0.5 K/mm3 (0.0-0.8); Monocytes % (Auto) 8.5 % (0.0-7.3); Platelet Count 196 K/mm3 (140-440); Red Blood Count 2.84 M/mm3 (3.65-5.03); Red Cell Distribution Width 15.7 % (13.2-15.2)
--- NOTE | 2021-09-20 08:00 | Event Note ---
Date: 09/20/21
[2021-09-20 08:19] LABS: Calcium 8.7 mg/dL (8.4-10.2)
== END 2021-09-20 07:45 | disposition hospice, home (50) | DRG 253 ==
LOC: ED 22:35 → 3A 09-14 04:36
PROVIDERS: ADMIT Internal Medicine Geriatric Medicine; ATTEND Internal Medicine
PROC: 30233N1 Transfusion of Nonautologous Red Blood Cells into Peripheral Vein, Percutaneous Approach (ICD-10-PCS; 2021-09-14)
PROC: 047L35Z Dilation of Left Femoral Artery with Two Drug-eluting Intraluminal Devices, Percutaneous Approach (ICD-10-PCS; principal; 2021-09-15)
DX: T82.898A Other specified complication of vascular prosthetic devices, implants and grafts, initial encounter (principal); N18.4 Chronic kidney disease, stage 4 (severe); I13.0 Hypertensive heart and chronic kidney disease with heart failure and stage 1 through stage 4 chronic kidney disease, or unspecified chronic kidney disease; I42.8 Other cardiomyopathies; D64.9 Anemia, unspecified; I50.9 Heart failure, unspecified; E11.22 Type 2 diabetes mellitus with diabetic chronic kidney disease; D50.9 Iron deficiency anemia, unspecified; E78.5 Hyperlipidemia, unspecified; E11.51 Type 2 diabetes mellitus with diabetic peripheral angiopathy without gangrene; D63.8 Anemia in other chronic diseases classified elsewhere; Y83.2 Surgical operation with anastomosis, bypass or graft as the cause of abnormal reaction of the patient, or of later complication, without mention of misadventure at the time of the procedure; Y92.89 Other specified places as the place of occurrence of the external cause; Z90.49 Acquired absence of other specified parts of digestive tract; Z79.4 Long term (current) use of insulin; Z79.82 Long term (current) use of aspirin; Z89.612 Acquired absence of left leg above knee
CPT/HCPCS: 36415; 37226; 74176; 75716; 76937; 80048; 80053; 81001; 82728; 82962; 83550; 83690; 84100; 85025; 85027; 85610; 86850; 86900; 86901; 86920; 87040; 87086; 93005; 93979; G0378; J3490; Q9967; C1725; C1760; C1769; C1773; C1874; C1887; C1894; J0290; J0690; J1644; J1815; J1885; J2250; J2270; J2543; J3010; J7030; J7040; P9016